=== PATIENT | male | born 1970 | race Caucasian/White ===

== ENCOUNTER 2018-11-25 13:21 | Inpatient (IN) | payer MEDICAID ==
[~2018-11-25] VITALS: Ht 170.2 cm; Wt 69.0 kg
[2018-11-25 13:26] VITALS: Ht 170.2 cm; Wt 69.0 kg
--- NOTE | 2018-11-25 13:40 | NUR ---
PT BIBA FOR ALOC, PER MEDICS, HE WAS FOUND OUTSIDE HIS HOUSE. WHEN MEDICS ARRIVED, PATIENT WAS COMBATIVE. PATIENT WAS GIVEN 5 MG IM VERSDED. ARRIVED AT BEDSIDE AND WAS STILL SEEN MOVING AROUND. BREATHING IS E/U, BILATERAL CHEST RISE. BED AT LOWEST LEVEL. DR. ROCKWELL AT BEDSIDE PERFORMED MSE
--- NOTE | 2018-11-25 13:47 | NUR ---
PT SENT TO CT
[2018-11-25 13:53] LABS: BASOPHIL % 1.2 % (0-2); PLATELET COUNT 118 x10^3mcL (130-400); RED CELL DISTRIBUTION WIDTH 15.6 % (11.5-14.5)
[2018-11-25 14:23] LABS: CALCIUM 7.7 mg/dL (8.5-10.1); CARBON DIOXIDE 28.8 mmol/L (21-32); CHLORIDE SERUM 110 mmol/L (98-107); GFR1 > 60 mL/min; GLUCOSE SERUM 96 mg/dL (74-106); POTASSIUM SERUM 3.3 mmol/L (3.5-5.1); SODIUM SERUM 144 mmol/L (136-145)
[2018-11-25 14:28] LABS: ALKALINE PHOSPHATASE 215 U/L (46-116); ALT/SGPT 71 U/L (16-63); AST/SGOT 127 U/L (15-37); BILIRUBIN TOTAL 2.88 mg/dL (0.20-1.00); CHOLESTEROL 161 mg/dL (<200)
[2018-11-25 14:31] LABS: ALBUMIN 1.9 g/dL (3.4-5.0); TOTAL PROTEIN, SERUM 8.5 g/dL (6.4-8.2)
[2018-11-25 15:10] LABS: UA SPECIFIC GRAVITY 1.015 (1.005-1.035); microscopic required? YES; urine erythrocyte 1+ (NEGATIVE)
[2018-11-25 15:27] LABS: AMPHETAMINE QUAL UR POSITIVE (See below)
--- NOTE | 2018-11-25 15:58 | NUR ---
PT REQUESTS FOR WATER. PER , APPROVED FOR WATER.
--- NOTE | 2018-11-25 16:05 | NUR ---
PATIENT ABLE TO ANSWER QUESTIONS. ASKED PATIENT IF HE IS COOPERATIVE, PATIENT STS HE IS COOPERATIVE. REMOVED RESTRAINTS. PATIENT CONTINUES TO BE COOPERATIVE. PATIENT STS HE WANTS TO REST.
--- NOTE | 2018-11-25 16:23 | NUR ---
PT RESTING AT BEDSIDE IN NAD. BREATHING E/U, BILATERAL CHEST RISE. BED AT LOWEST POSITION.
[2018-11-25 16:31] LABS: MAGNESIUM 1.8 mg/dL (1.8-2.4); PHOSPHOROUS 2.4 mg/dL (2.5-4.9)
--- NOTE | 2018-11-25 17:35 | NUR ---
PT RESTING AT BEDSIDE IN NAD. BREATHING E/U, BILATERAL CHEST RISE. BED AT LOWEST POSITION. LIGHTS DIMMED TO PROMOTE PATIENT COMFORT. CURTAINS LEFT WIDE OPEN, PATIENT IN CLEAR VIEW OF NURSES AT STATION
--- NOTE | 2018-11-25 17:56 | NUR ---
PT RESTING AT BEDSIDE IN NAD. BREATHING E/U, BILATERAL CHEST RISE. BED AT LOWEST POSITION. CALL LIGHT IN REACH. LIGHTS DIMMED AND BLANKETS PROVIDED TO PROMOTE PATIENT COMFORT
--- NOTE | 2018-11-25 18:20 | NUR ---
PT RESTING AT BEDSIDE IN NAD. BREATHING E/U, BILATERAL CHEST RISE. BED AT LOWEST LEVEL. LIGHTS DIMMED TO PROMOTE PATIENT COMFORT. CURTAINS LEFT OPEN, PATIENT CLEARLY SEEN BY NURSES AT STATION.
--- NOTE | 2018-11-25 19:45 | NUR ---
PT AWOKE STATING HAVING TO GO TO BATHROOM FOR URINATION. PT REORIENTATED TO PLACE AND THE FACT THAT HE HAS A DAWSON CATH IN PLACE TO DRAIN URINE. PT HAS IV IN PLACE TO RIGHT AC. RESPIRATIONS EVEN AND UNLABORED. NO OTHER COMPLAINTS AT THIS TIME. PT IS OREINTATED TO PERSON PLACE.
--- NOTE | 2018-11-25 20:00 | NUR ---
REPORT TO ELPIDIO DUQUE ON TELE UNIT. PT RESTING NO DISTRESS.
[2018-11-25 20:35] VITALS: BP 132/85
--- NOTE | 2018-11-25 20:39 | NUR ---
RECEIVED PT FROM ED VIA ROBERT. ORIENTED PT TO ROOM AND SURROUNDINGS. IV NOTED TO RAC PATENT AND INTACT. INSTRUCTED PT ON THE USE OF CALL LIGHT FOR ASSISTANCE. ENDORSD PT TO PRIMARY NURSE NETO
--- NOTE | 2018-11-25 21:13 | NUR ---
PT RECIEVED AWAKE ALERT AND ORIENTED TO SELF PLACE AND RESTING IN BED AT THIS TIME,PT HAS IV TO THE LT AC SITE IS PATENT AND INTACT,ABDO IS SOFT WITH ACTIVE BOWEL SOUNDS,PT WITH ABRASIONS AND SCABS TO THE THE BODY,PT RESTING AT THIS TIME WITH SITTER AT THE BEDSIDE,PT ON TELE MONITOR AND IN NSR NO ECTOPY OR CHEST PAIN AT THIS TIME,KEPT CLEAN AND DRY TO TOUCH AND WILL CONTINUE TO MONITOR.
--- NOTE | 2018-11-25 21:33 | NUR ---
U/S ABDO BEING DONE ON THE PATIENT ORDER AND WILL CONTINUE TO MONITOR.
--- NOTE | 2018-11-25 22:06 | NUR ---
PT WANT TO EAT WAS GIVEN SANDWICH SITTING UP ON THE BED AND EATING,TOLEARTING IT WELL THIS TIME,WILL CONTINUE TO MONITOR.
[2018-11-26 05:53] VITALS: BP 106/56
--- NOTE | 2018-11-26 06:26 | NUR ---
PT HAD A RESTING NIGHT SOMETHINGS NOT LISTENING TO SIMPLE INSTRUCTIONS,P SLEEPING SIDE RAILS PADDED STILL HAS A F/C TO GRAVITY WITH DARK SANTI URINE OUTPUT.WILL CONTINUE TO MONITOR.
--- NOTE | 2018-11-26 06:42 | NUR ---
PT TRYING TO GET OOB DROWSY AND SLURED SPEECH THIS AM,WILL CONTINUE TO MONITOR.
--- NOTE | 2018-11-26 06:53 | NUR ---
PT REFUSING TO TAKE HIS LACTULOSE THIS AM,DR LOWE HERE AND MADE AWARE,WILL CONTINUE TO MONITOR.
[2018-11-26 07:00] LABS: BASOPHIL % 1.5 % (0-2)
--- NOTE | 2018-11-26 07:00 | NUR ---
RECEIVED REPORT FROM LAST GREASER NURSE AT THIS TIME. PATIENT RESTING COMFORATBLY IN BED. NO DISTRESS OR DISCOMFORT AT THIS TIME. NO INDICATIONS OF CHEST PAIN AT THIS TIME. SEIZURE PRECAUTIONS IN PLACE. DAWSON CATHETER DRAINING TO GRAVITY YELLOW URINE. IV PATENT AND INTACT. ALL QUESTIONS AND CONCERNS ADDRESSED. ALL NEEDS ATTENDED TO. WILL CONTINUE TO MONITOR.
[2018-11-26 07:06] LABS: PLATELET COUNT 116 x10^3mcL (130-400); RED CELL DISTRIBUTION WIDTH 15.4 % (11.5-14.5)
[2018-11-26 07:07] LABS: CALCIUM 7.4 mg/dL (8.5-10.1); CARBON DIOXIDE 24.9 mmol/L (21-32); CHLORIDE SERUM 111 mmol/L (98-107); CREATININE SERUM 0.9 mg/dL (0.7-1.3); GFR1 > 60 mL/min; GLUCOSE SERUM 82 mg/dL (74-106); MAGNESIUM 1.6 mg/dL (1.8-2.4); PHOSPHOROUS 1.9 mg/dL (2.5-4.9); POTASSIUM SERUM 3.1 mmol/L (3.5-5.1); SODIUM SERUM 143 mmol/L (136-145)
[2018-11-26 09:13] VITALS: BP 103/57
--- NOTE | 2018-11-26 09:17 | NUR ---
PATIENT UNARROUSABLE AT THIS TIME. PATIENT LOCALIZES TO PAIN, BUT NO VERBAL RESPONSE. WILL NOTIFY DR AT THIS TIME.
--- NOTE | 2018-11-26 09:30 | NUR ---
DR THOMPSON AT BEDSIDE TO ASSESS PATIENT. PER DR THOMPSON TRANSFER PATIENT TO ICU. WILL CONTINUE TO MONITOR
--- NOTE | 2018-11-26 10:42 | NUR ---
GAVE REPORT TO ICU NURSE SARKIS AT THIS TIME. PATIENT TRANSPORTED TO ICU BED 8. ALL NEEDS ATTENDED TO. TELE MONITOR RETURNED TO EMERGENCY ROOM CLERK. ALL QUESTIONS AND CONCERNS ADDRESSED
--- NOTE | 2018-11-26 10:53 | NUR ---
RECEIVED REPORT FROM SIM PATIENT TRANSFERRED TO ICU PATIENT HAS ELEVATED AMMONIA LEVEL ORDER TO INSERT NGT PATIENT WAS TRANSFERRED TO BED WITH NO RESISTANCE UNTIL MONITOR WAS PLACED ON PATIENT. PATIENT BEGAN TO RESIST BUT ABLE TO CALM DOWN IV TO RIGHT AC SALINE LOCK WILL CONTINUE TO MONITOR
[2018-11-26 11:14] VITALS: BP 99/64
--- NOTE | 2018-11-26 11:29 | NUR ---
NGT PLACED TO RIGHT NARE PER ORDER
--- NOTE | 2018-11-26 13:40 | NUR ---
PATIENT IS RESTING COMFORTABLY BILATERAL WRIST RESTRAINTS IN PLACE
[2018-11-26 15:14] VITALS: BP 99/70
[2018-11-26 20:00] VITALS: BP 114/58
--- NOTE | 2018-11-26 20:38 | NUR ---
PT. SLEEPING, REPONDS TO TATILE AND PAIN STIMULI. PT. IN FOUR POINT RESTRAINTS. AGGRESSIVE BEHAVIOR NOTED WHEN RESTRAINTS ARE RELEASED. PATIENT KICKING. RESISTANT TO CARE. PT HAD VERY LARGE BM, SOFT AND DARK BROWN. PT. ON LACTULOSE. PT. CLEANED, BED CHANGED. PT. REPOSITIONED W/ ASSIST OF TWO OTHER NURSES. NGT TO RT. NARE REMAINS IN-SITU. F/C DRAINING WELL TO GRAVITY. IVF NS INFUSING WELL TO RFA, SITE INTACT. HOB 35 DEGREES. PT. IN DIRECT VIEW OF THE NURSING STATION. FREQUNT ROUNDS PLANNED.
--- NOTE | 2018-11-26 20:54 | NUR ---
SPOKE W/ DR. MOTT TO CLARIFY DIET ORDER. PT. IS TO HAVE TUBE FEEDING STARTED PER ORDER./
--- NOTE | 2018-11-26 23:31 | NUR ---
PT. CONTINUES TO HAVE LARGE, DARK BROWN, STICKY BM. PT. W/ X3 THUS FAR. PT. CLEANED AND REPOSITIONED, MADE COMFORTABLE. REMAINS IN FOUR POINT RESTRAINTS. TUBE FEEDING VITAL AF 1.2 STARTED AT 2300, 10CC/HR. TOLERATING THUS FAR. HOB 35 DEGREES. WILL CONTINUE TO MONITOR.
[2018-11-27] VITALS (7 sets, daily range): BP systolic 98–136; BP diastolic 52–83
--- NOTE | 2018-11-27 01:14 | NUR ---
PT. STARTED ON TUBE FEEDING AND TOLERATING IT BUT IS BALLING HIMSELF UP IN POSISION. HOB 35 DGEREES. PT. PULLED UP IN BED SEVERAL TIMES, BUT HE SCOOTS DOWN AND TUCKS HIS HEAD TO CHIN. PT. AT RISK FOR ASPIRATION R/T TUBE FEEDING. TF TURNED OFF AT THIS TIME. WILL CONTINUE TO MONITOR.
--- NOTE | 2018-11-27 04:13 | NUR ---
PT. SLEEPING AT THIS TIME THOUGH HE'S MORE AROUSABLE. OPENS EYES ONHIS OWN. NOT SPEAKING OR SAYING ANY WORDS HOWEVER, NOT ANSWERING ANY QUESTIONS. GOES RIGHT BACK TO SLEEP. NGT TO RT. NARE IN-SITU. TUBE FEEDING TURNED OFF HOWEVER, PT. APPEARS TO FAVOR POSITION. RISK FOR ASPIRATION. WILL CONTINUE TO MONITOR. ABD. SOFT AMD FLAT, BOWEL SOUNDS ACTIVE. IVF INFUSING WELL. F/C DRAINING WELL TO GRAVITY. HOB 35 DEGREES.
[2018-11-27 05:30] LABS: BASOPHIL % 0.8 % (0-2); PLATELET COUNT 100 x10^3mcL (130-400); RED CELL DISTRIBUTION WIDTH 17.2 % (11.5-14.5)
[2018-11-27 05:41] LABS: CALCIUM 7.1 mg/dL (8.5-10.1); CARBON DIOXIDE 24.6 mmol/L (21-32); CHLORIDE SERUM 114 mmol/L (98-107); CREATININE SERUM 0.8 mg/dL (0.7-1.3); GFR1 > 60 mL/min; GLUCOSE SERUM 73 mg/dL (74-106); MAGNESIUM 1.8 mg/dL (1.8-2.4); PHOSPHOROUS 1.8 mg/dL (2.5-4.9); POTASSIUM SERUM 3.4 mmol/L (3.5-5.1); SODIUM SERUM 142 mmol/L (136-145)
--- NOTE | 2018-11-27 06:59 | NUR ---
PT. HAD LARGE BM, PT. CLEANED UP AND REPOSITIONED. PT. MORE AWAKE NOW, ABLE TO COMMUNICATE. SPEECH SLOW, SLURRED. PT. ORIENTED TO SELF, PLACE AND TIME. PT. ASKING IF HIS FAMILY KNOWS THAT HE IS HERE. PT. MADE AWARE THAT HIS MOTHER AND ANOTHER FAMILY MEMBER CAME AND WILL BE BACK LATER. PT.'S IV SITE TO RAC LEAKING BLOOD. IV CATH REMOVED AND SITE DRESSED. NEW SITE STARTED ON RT. HAND.
--- NOTE | 2018-11-27 07:30 | NUR ---
RECEIVED A BEDSIDE REPORT, SEEN ASLEEP, NO TALKING BACK, TACTILE STIMULI RESPONSIVE, NGT TO RIGHT NARE NOTED CLAMPED, BREATHING E/U ON ROOM AIR, HOB ELEVATED AT 45 DEG, ABDN SOFT AND FLAT, KEPT NPO, DAWSON CATH DRIANING TO GRAVITY YELLOW URINE COLORED, IVF NS TO RT HAND INFUSING AT 100ML/HR, CALL LIGHT PLACED WITHIN EASY REACH, SIDERAILS UP X2.
--- NOTE | 2018-11-27 08:20 | NUR ---
PATIENT IS DROWSY WHEN PHLEBOMOTISTS AT BEDSIDE FOR AMMONIA DRAW, STATED HE IS IN THE [facility] AND TODAY IS SUNDAY. PATIENT STATED HE IS HUNGRY, ASKED FOR WATER AND FOOD. REORIENTATION PROVIDED. RESTRAINT TO BLE AND LEFT WRIST REMOVED.
--- NOTE | 2018-11-27 08:26 | NUR ---
K LEVEL 3.4, KCL 40MEQ VIA NGT GIVEN, NO ASPIRATION NOTED.
--- NOTE | 2018-11-27 09:17 | NUR ---
HAD LOOSE BM, CLEANED UP AND NEW PADS/GOWN CHANGED. AWAK, DROWSY, ORIENTED X3. ASKED FOR WATER. ICE CHIPS GIVEN, TOLERATED WELL, NO S/S OF ASPIRATION NOTED.
--- NOTE | 2018-11-27 09:20 | NUR ---
STATED I'M HUNGRY, ICE WATER PROVIDED, ABLE TO FINISH A CUP OF WATER WITHOUT ASPIRATION OR COUGH NOTED.
--- NOTE | 2018-11-27 09:35 | NUR ---
HAD A LARGE LOOSE BM, CLEANED BY ASSISTED BY ME AND TOBACCO WRAPPING MACHINE TENDER IRENE. ABLE TO REPOSTION SELF IN BED. ASKED FOR PHONE AND FOOD.
--- NOTE | 2018-11-27 10:30 | NUR ---
DOCTOR THOMPSON AND MEDICAL TEAM AT BEDSIDE FOR AM ROUND. INFORMED DOCTOR THOMPSON THAT PATIENT ABLE TO FINISH A WHOLE CUP OF WATER.
--- NOTE | 2018-11-27 11:29 | NUR ---
NOTED NEW ORDER FOR FULL LIQUID DIET.
--- NOTE | 2018-11-27 13:00 | NUR ---
ABLE TO FEED SELF, FINISHED 100% OF FULL LIQUID DIET LUNCH, NO ASPIRATION NOTED. HAD A LARGE LOOSE BM AFTER LUNCH, CLEANED UP AND NEW CHUCKS CHANGED.
--- NOTE | 2018-11-27 13:25 | NUR ---
PATIENT PULLED OUT NGT, DOCTOR MILVIA MADE AWARE. PATIENT ASKED FOR THE PHONE, PHONE PROVIDED AND INSTRUCTED HOW TO USE IT.
--- NOTE | 2018-11-27 13:28 | NUR ---
HEARD PATIENT TALKED TO HIS MOTHER ON THE PHONE.
--- NOTE | 2018-11-27 14:50 | NUR ---
SEEN PATIENT'S MOTHER AT BEDSIDE TALKING TO PATIENT, CURRENT CONDITION/PLAN OF CARE UPDATED.
--- NOTE | 2018-11-27 15:20 | NUR ---
HAD A MODERATE LOOSE BM, CLEANED UP, NEW GOWN/LINENS CHANGED.
--- NOTE | 2018-11-27 16:07 | NUR ---
NOTED ORDER TO TRANSFER TO TELEMETRY UNIT.
--- NOTE | 2018-11-27 16:57 | NUR ---
REPORT GIVEN TO ELPIDIO MSUE VIA PHONE. PATIENT WILL BE TRANSFERRED TO ROOM 218B. PATIENT MADE AWARE.
--- NOTE | 2018-11-27 16:57 | NUR ---
RECEIVED REPORT FROM BLAKE MAGALLANES.
--- NOTE | 2018-11-27 17:20 | NUR ---
RECEIVED PT FROM ICU. PT SLEEPING AROUSABLE TO VOICE. PT C/O BEING COLD GIVEN WARM BLANKET. VITALS TAKEN BP 98/69, HR 82, TEMP 99.8, SATING 98% ON RA, RR 18. RESPIRATIONS EQUAL AND UNLABORED ON RA. NO ACUTE DISTRESS NOTED. TELE#17. DENIES PAIN AT THIS TIME. IV TO RT WRIST FLUSHED WELL. NO REDNESS OR SWELLING NOTED. IV FLUIDS INFUSING AT 100ML/HR. WILL CONTINUE TO MONITOR. CALL LIGHT IN REACH. BED IN LOWEST POSITION.
--- NOTE | 2018-11-27 17:22 | NUR ---
TRANSFERRED VIA BED TO TELEMETRY UNIT, CONDITION STABLE UPON TRANSFER.
--- NOTE | 2018-11-27 18:49 | NUR ---
PT IN BED SLEEPING. DROWSY BUT AROUSABLE TO VOICE. RESPIRATIONS EQUAL AND UNLABORED ON RA. NO ACUTE DISTRESS NOTED. IV PATENT AND INUSING. NO REDNESS OR SWELLING NOTED. SEIZURE PRECAUTIONS IN PLACE. WILL ENDORSE TO TIP TESTER RN. BED IN LOWEST POSITION. CALL LIGHT IN REACH.
--- NOTE | 2018-11-27 19:45 | NUR ---
RECEIVED PATIENT FROM DAY SHIFT RN. PATIENT IS AO TO SELF, DROWSY AT THIS TIME. BREATHING EVEN AND UNLABORED WITH NO SIGNS OF RESP DISTRESS NOTED. LUNG SOUNDS CTA ON RA. IV RIGHT HAND PATENT, INFUSING WELL. TELE #17 SR HR 87. F/C YELLOW URINE DRAINING IN BAG. FALL PRECAUTIONS IN PLACE. SEIZURE PRECAUTIONS IN PLACE. WILL CONTINUE TO MONITOR.
--- NOTE | 2018-11-27 21:27 | NUR ---
PATIENT HAD A BM SMALL LOOSE. PATIENT UNCOOPERATIVE AND UNWILLING TO TAKE MEDICATIONS. DR MOTT MADE AWARE, AWAITING NEW ORDER.
--- NOTE | 2018-11-27 22:00 | NUR ---
LACTOLOSE NOT GIVEN PT WAS TOO DROWSY AND UNWILLING TO TAKE MEDICATION AT THIS TIME. DR MOTT MADE AWARE, LACTOLOSE PER RECTAL WAS ORDERED, PHARMACIST DID NOT VERIFIED THE ORDER. INSTEAD FLEET ENEMA WAS ORDERED, PER DR MOTT TO HOLD FLEET ENEMA AND WILL RE ORDER LACTOLOSE AGAIN. NO NEW ORDERS AT THIS TIME.
--- NOTE | 2018-11-27 22:45 | NUR ---
PATIENT TRYING TO GET UP AND GO TO THE BATHROOM, ACCIDENTLY PULLED OUT IV ON RIGHT HAND, CATHETER INTACT. NEW IV STARTED ON RFA, PATENT AND FLUSHED WELL.
--- NOTE | 2018-11-27 23:29 | NUR ---
PATIENT IS ASLEEP, BREATHING EVEN AND UNLABORED. NO SIGNS OF DISTRESS NOTED. SAFETY PRECAUTIONS IN PLACE. WILL CONTINUE TO MONITOR.
--- NOTE | 2018-11-28 03:35 | NUR ---
FLEET ENEMA GIVEN.
--- NOTE | 2018-11-28 03:46 | NUR ---
ROUNDS MADE. PATIENT ASLEEP AT THIS TIME. NO SIGNS OF DISTRESS NOTED. SAFETY PRECAUTIONS IN PLACE. WILL CONTINUE TO MONITOR.
--- NOTE | 2018-11-28 04:29 | NUR ---
PATIENT VERY RESTLESS AND LETHARGIC, TRYING TO GET OUT OF BED MULTIPLE TIMES. PT TRYING TO PULL OUT IV AND F/C. DR MOTT MADE AWARE PT PLACED ON BILATERAL SOFT RESTRAINTS ORDERED. NO ACUTE DISTRESS NOTED. WILL CONTINUE TO MONITOR.
[2018-11-28 04:50] VITALS: BP 103/66
--- NOTE | 2018-11-28 05:38 | NUR ---
PATIENT IS ALERT AND ORIENTED TO SELF. PT RESPONDS TO VERBAL STIMULI AT TIMES. PATIENT IS RESTLESS AND LETHARGIC. TELE 17 SR. LUNG SOUNDS CTA ON RA. PATIENT HAD A TWO LOOSE BM. FLEET ENEMA WAS GIVEN. LACTOLOSE ORDERED UNABLE TO TAKE MEDICATION. PT HAS F/C IN PLACE DRAINING YELLOW URINE. BUE AND BLE DISCOLORATIONS, DRY SCAB TO KNEE AND HAND. IV RFA PATENT, INFUSING WELL. RESTRAINTS APPLIED SUSANA WRISTS HE WAS VERY RESTLESS TRYING TO PULL OUT TUBING AND GET OUT OF BED MULTIPLE TIMES. SEIZURE PRECAUTIONS IN PLACE. SAFETY PRECAUTION IN PLACE. WILL CONTINUE TO MONITOR.
[2018-11-28 06:28] LABS: CALCIUM 7.6 mg/dL (8.5-10.1); CARBON DIOXIDE 25.9 mmol/L (21-32); CHLORIDE SERUM 112 mmol/L (98-107); CREATININE SERUM 0.8 mg/dL (0.7-1.3); GFR1 > 60 mL/min; GLUCOSE SERUM 83 mg/dL (74-106); POTASSIUM SERUM 3.6 mmol/L (3.5-5.1); SODIUM SERUM 142 mmol/L (136-145)
[2018-11-28 06:58] LABS: PLATELET COUNT 96 x10^3mcL (130-400); RED CELL DISTRIBUTION WIDTH 16.3 % (11.5-14.5)
--- NOTE | 2018-11-28 06:58 | NUR ---
AMMONIA LEVEL TRENDING UP 133, DR MOTT MADE AWARE.
--- NOTE | 2018-11-28 07:30 | NUR ---
RECEIVED PT FROM LANDSCAPER HELPER RN. SLEEPING, DROWSY, AROUSABLE TO TOUCH. NONVERBAL. TELE#17. SOFT WRIST RESTRAINTS TO BILATERAL WRIST. CIRCULATION CHECKED, NO REDNESS OR SWELLING NOTED. SEIZURE PRECAUTIONS IN PLACE. HOB ELEVATED 30 DEGREES. RESPIRATIONS EQUAL AND UNLABORED ON RA. WILL CONTINUE TO MONITOR. BED IN LOWEST POSITION. CALL LIGHT IN REACH.
--- NOTE | 2018-11-28 07:32 | NUR ---
ENDORSED CARE TO DAY SHIFT RN.
--- NOTE | 2018-11-28 08:25 | NUR ---
PT IN BED SLEEPING. DROWSY, AROUSABLE TO TOUCH. CIRCULATION WNL. NO REDNESS OR SWELLING NOTED. IV PATENT AND INFUSING. SEIZURE PRECAUTIONS IN PLACE. HOB ELEVATED 30 DEGREES. WILL CONTINUE TO MONITOR. CALL LIGHT IN REACH. BED IN LOWEST POSITION.
--- NOTE | 2018-11-28 08:30 | NUR ---
CALLED POLLY KEENE, MOTHER. UPDATED HER ON PT POC. POLLY STATED SHE WILL BE VISITING AROUND 1PM.
[2018-11-28 09:38] VITALS: BP 103/60
--- NOTE | 2018-11-28 10:46 | NUR ---
PT IN BED DROWSY BUT AROUSABLE TO VOICE. PT GIVEN BED BATH, LINENS CHANGED. GIVE LACTULOSE RECTALLY. PT BEGAN FIGHTING AND KICKING. PT MORE AWAKE AFTER BED BATH AND LINENS CHANGED. PT ASKING TO EAT GIVEN SOME PUDDING. TOLERATED WELL. IV INFILTRATED, CATHETER REMOVED INTACT ELEVATED ON PILLOW. HOB ELEVATED. SEIZURE PRECAUTIONS IN PLACE. WILL CONTINUE TO MONITOR. CALL LIGHT IN REACH. BED IN LOWEST POSITION.
--- NOTE | 2018-11-28 11:41 | NUR ---
PT IN BED RESTING. IV STARTED TO LT FA. PT TOLERATED WELL. PT ASKING TO EAT. GIVEN PUDDING. TOLERATED WELL. HOB ELEVATED 30 DEGREES. DROWSY BUT AROUSABLE TO VOICE. SOFT WRIST RESTRAINTS IN PLACE. CIRCULATION WNL. RT ARM ELEVEATED ON PILLOW. SEIZURE PRECAUTIONS IN PLACE. WILL CONTINUE TO MONITOR. CALL LIGHT IN REACH. BED IN LOWEST POSITION.
[2018-11-28] MEDS ORDERED: LAC30L PR (12:47)
--- NOTE | 2018-11-28 13:45 | NUR ---
PT ASKING TO GET OUT OF BED. STATING HE WANTS TO USE THE BATHROOM. HE IS STILL DROWSY AND CANNOT KEEP HIS EYES OPEN. SOFT WRIST RESTRAINTS TO BILAT WRIST. CIRCULATION WNL. SEIZURE PRECAUTIONS IN PLACE. BED IN LOWEST POSITION. CALL LIGHT IN REACH.
[2018-11-28 14:23] VITALS: BP 120/73
--- NOTE | 2018-11-28 14:29 | NUR ---
PT ATTEMPTING TO GET OUT OF BED. STATING HE NEEDS TO GET OUT OF BED TO USE THE BATHROOM BECAUSE HE NEEDS TO PEE. PT REMINDED OF HAVING A DWASON CATHETER. STILL ATTEMPTING TO GET OUT OF BED AND IS AGITATED. PT ABLE TO FOLLOW COMMANDS TO TAKE LACTULOSE PO. GIVEN ATIVAN IV FOR AGITATION. WILL CONTINUE TO MONITOR. CALL LIGHT IN REACH. BED IN LOWEST POSITION.
--- NOTE | 2018-11-28 16:26 | NUR ---
MOTHER AND COUSIN SITTING AT BEDSIDE. MOTHER, POLLY UPDATED ON POC. POLLY INFORMED OF POSSIBLE TRANSFER TO HIGHER LEVEL OF CARE. MOTHER POLLY KEENE ASKED TO BE UPDATED ON TRANSFER.
--- NOTE | 2018-11-28 17:01 | NUR ---
PT RESTING IN BED. CHANGED PT AND PUT ON NEW GOWN WITH HELP OF SHOPPER'S AIDE. PT RESTLESS WHEN BEING MOVED. REPOSITIONS ON RIGHT SIDE. IV INFUSING. NO REDNESS OR SWELLING NOTED. SEIZURE PRECAUTIONS IN PLACE. BILAT SOFT WRIST RESTRAINTS. CIRCULATION WNL. WILL CONTINUE TO MONITOR. CALL LIGHT IN REACH. BED IN LOWEST POSITION.
[2018-11-28 17:56] VITALS: BP 104/61
--- NOTE | 2018-11-28 18:25 | NUR ---
PT RESTING IN BED. DROWSY BUT AROUSABLE. OFFERED PT FOOD AND WATER. PT GOT UPSET AND STATED HE JUST WANTS TO SLEEP. BILAT SOFT WRIST RESTRAINTS IN PLACE. CIRCULATION WNL. SEIZURE PRECAUTIONS IN PLACE. NO ACUTE RESP DISTRESS NOTED. WILL CONTINUE TO MONITOR.
--- NOTE | 2018-11-28 18:50 | NUR ---
PT IN BED SLEEPING. DROWSY, AROUSABLE. TELE#17. RESPIRATIONS EQUAL AND UNLABORED ON RA . NO ACUTE RESP DISTRESS NOTED. IV PATENT AND INFUSING. NO REDNESS OR SWELLING NOTED. BILAT SOFT WRIST RESTRAINTS IN PLACE. CIRCULATION WNL. SEIZURE PRECAUTIONS IN PLACE. OFFERED PT FOOD AND WATER, PT REFUSED. WILL ENDORSE TO REVENUE ENFORCEMENT AGENT RN. CALL LIGHT IN REACH. BED IN LOWEST POSITION.
--- NOTE | 2018-11-28 19:39 | NUR ---
RECEIVED PATIENT FROM DAY SHIFT RN. PATIENT IS AO TO SELF, DROWSY AT THIS TIME. BREATHING EVEN AND UNLABORED WITH NO SIGNS OF RESP DISTRESS NOTED. LUNG SOUNDS CTA ON RA. IV LFA PATENT, INFUSING WELL. TELE #17 SB HR 56. NO SIGNS OF DISTRESS OR DISCOMFORT. F/C YELLOW URINE DRAINING IN BAG. BUE AND BLE DISCOLORATION NOTED. DRY SCAB TO KNEE AND HAND. BILATERAL WRIST SOFT RESTRAINTS, SKIN CIRCULATION WNL. FALL PRECAUTIONS IN PLACE. SEIZURE PRECAUTIONS IN PLACE. WILL CONTINUE TO MONITOR.
[2018-11-28 20:27] VITALS: BP 127/79
--- NOTE | 2018-11-28 23:00 | NUR ---
ROUNDS MADE. PATIENT IS ASLEEP. NO SIGNS OF DISTRESS NOTED. IV PATENT AND INFUSING WELL. BILATERAL WRIST SOFT RESTRAINT, SKIN CIRCULATION WNL. SAFETY PRECAUTIONS IN PLACE. WILL CONTINUE TO MONITOR.
--- NOTE | 2018-11-29 02:08 | NUR ---
ROUNDS MADE. PT ASLEEP. BREATHING EVEN AND UNLABORED. BILATERAL WRISTS SOFT RESTRAINT, SKIN AND CIRCULATION WNL. SAFETY PRECAUTIONS IN PLACE. WILL CONTINUE TO MONITOR.
--- NOTE | 2018-11-29 03:52 | NUR ---
PT IS ASLEEP. BREATHING EVEN AND UNLABORED WITH NO SIGNS OF RESP DISTRESS. IV PATENT, INFUSING WELL. BILATERAL WRIST SOFT RESTRAINTS, SKIN AND CIRCULATION WNL. SAFETY PRECAUTIONS IN PLACE. WILL CONTINUE TO MONITOR.
[2018-11-29 05:54] VITALS: BP 91/47
--- NOTE | 2018-11-29 06:27 | NUR ---
PT IS RESTING, RESTLESS AND DROWSY. ALERT AND OREINTED TO SELF. PT SLEPT MOST OF THE NIGHT WITH NO DISTRESS. IV LFA PATENT AND INFUSING WELL. PT HAD LOOSE BM X1. MEDICATED PER EMAR. BILATERAL WRISTS SOFT RESTRAINTS, SKIN AND CIRCULATION WNL. SEIZURE PRECAUTIONS IN PLACE. SAFETY PRECAUTIONS IN PLACE. WILL CONTINUE TO MONITOR AND ENDORSE CARE TO DAY SHIFT RN.
[2018-11-29 06:59] LABS: BASOPHIL % 0.8 % (0-2)
[2018-11-29 07:02] LABS: PLATELET COUNT 89 x10^3mcL (130-400); RED CELL DISTRIBUTION WIDTH 16.8 % (11.5-14.5)
[2018-11-29 07:04] LABS: ALKALINE PHOSPHATASE 170 U/L (46-116); ALT/SGPT 69 U/L (16-63); AST/SGOT 117 U/L (15-37); BILIRUBIN DIRECT 1.28 mg/dL (0.0-0.2); BILIRUBIN TOTAL 2.38 mg/dL (0.20-1.00); CALCIUM 7.1 mg/dL (8.5-10.1); CARBON DIOXIDE 25.8 mmol/L (21-32); CHLORIDE SERUM 111 mmol/L (98-107); CREATININE SERUM 0.7 mg/dL (0.7-1.3); GFR1 > 60 mL/min; GLUCOSE SERUM 79 mg/dL (74-106); POTASSIUM SERUM 3.4 mmol/L (3.5-5.1); SODIUM SERUM 138 mmol/L (136-145); TOTAL PROTEIN, SERUM 7.3 g/dL (6.4-8.2)
[2018-11-29 07:05] LABS: ALBUMIN 1.5 g/dL (3.4-5.0)
--- NOTE | 2018-11-29 07:27 | NUR ---
PT IS ASLEEP. NO SIGNS OF DISTRESS NOTED. IV PATENT AND INFUSING WELL. BILATERAL WRISTS SOFT RESTRAINTS WITH SKIN AND CIRCULATION WNL. SAFETY PRECAUTIONS IN PLACE. ENDORSED CARE TO DAY SHIFT RN, ALL QUESTIONS ADDRESSED.
--- NOTE | 2018-11-29 07:40 | NUR ---
PT SLEEPING IN BED, UNABLE TO ASSESS ORIENTATION DUE TO DROWSINESS. PT IS TO TOUCH AROUASBLE. TELE MONITOR #[address], NSR. NO SOB NOTED, PT ON ROOM AIR. SEIZURE PRECAUTIONS IN PLACE. PT ON BILATERAL WRIST SOFT RESTRAINTS, CIRCULATION WNL. SKIN TEAR NOTED TO RIGHT FOREARM. DAWSON CATHETER DRAINING TO GRAVITY. NS IV INFUSING TO LFA AT 100 ML/HR, CDI, NO REDNESS, SWELLING OR PAIN NOTED AT SITE. CALL LIGHT WITHIN REACH, BED IN LOW POSITION. WILL CONTINUE TO MONITOR.
[2018-11-29 09:20] VITALS: BP 129/54
--- NOTE | 2018-11-29 11:30 | NUR ---
PATIENT IS AWAKE, ASSESED ORIENTATION. PT IS A/O X3 (PERSON,PLACE,TIME). WILL CONTINUE TO MONITOR FOR CHANGES.
--- NOTE | 2018-11-29 12:13 | NUR ---
PATIENT RQUESTING TO USE RESTROOM, PT AWARE F/C IS IN PLACE AND WILL NOT URINATE IN BED. PT CONTINUES TO REQUEST WANTING TO USE RESTROOM, PT SEEMS CONFUSED AT THIS TIME. WILL CONTINUE TO MONITOR AND REORIENTATE THE PATIENT. CALL LIGHT WITHIN REACH. BED IN LOW POSITION.
[2018-11-29 14:19] VITALS: BP 133/81
--- NOTE | 2018-11-29 14:22 | NUR ---
SHEET WRITER MI AWARE THE LACTULOSE GIVEN RECTAL AT 1400 (SEE EMAR) WAS HELD AND INSTEAD TELEPHONE ORDER WAS GIVEN FOR PT TO RECEIVE LACTULOSE PO (SEE EMAR). PATIENT TOLERATED PO MED. WILL CONTINUE TO MONITOR.
--- NOTE | 2018-11-29 14:50 | NUR ---
PATIENT IS SITTING UP ON BEDSIDE COMMODE. HEALTH DATA ADMINISTRATOR AT BEDSIDE FOR SAFETY.
--- NOTE | 2018-11-29 15:20 | NUR ---
PATIENT IS REFUSING TO GO TO BED, PT STATES "I WANT TO GO HOME, I KNOW MY RIGHTS. " SENIOR COST ANALYST MI DIAZ. WILL ENCOURAGE PT TO STAY AND MONITOR, FOR PT SAFETY.
--- NOTE | 2018-11-29 15:55 | NUR ---
JAGJIT STARK AWARE PT PULLED OUT F/C, JAGJIT STARK AWARE BLOOD WAS NOTED UPON REMOVAL OF F/C, NO FURTHER ORDERS AT THIS TIME. WILL CONTINUE TO MONITOR PT. CALL LIGHT WITHIN REACH, BED IN LOW POSITION. SIDE RAILS UP X3, FOR SAFETY PRECAUTION.
[2018-11-29 15:59] VITALS: BP 109/59
--- NOTE | 2018-11-29 18:50 | NUR ---
PATIENT SLEEPING IN BED, AROUSABLE. DENIES PAIN AT THIS TIME. NO ACUTE CHANGES AT THIS TIME. PATIENT IS STABLE. NS IV INFUSING TO LFA AT 100ML/HR, IV SITE CDI, NO REDNESS,SWELLING OR PAIN AT SITE. SEIZURE PRECAUTION IN PLACE. BILATERAL WRIST IN PLACE, CIRCULATION WNL. WILL ENDORSE REPORT TO NIGHT NURSE.
--- NOTE | 2018-11-29 19:30 | NUR ---
RECIEVED PATIENT AT START OF SHIFT OBTUNDED. UNABLE TO OPEN EYES, OR FOLLOW COMMANDS, BUT DOES GRIMACE WITH PAINFUL STIMULI. PUPILS ARE SLUGGISH +3. PATIENT IS SNORING, SATTING 100% ON RA. LUNGS CTAB. ABDOMEN SOFT AND ROUND, BOWEL SOUNDS ACTIVE. SEIZURE PRECAUTIONS AND ASPIRATION PRECAUTIONS IN PLACE. BILATERAL SOFT WRIST RESTRAINTS IN PLACE BECAUSE PATIENT PULLED OUT HIS DAWSON DURING DAY SHIFT REPORTED PER ARRON MAGALLANES. IV TO LFA INTACT, INFUSING WITHOUT REDNESS OR EDEMA. BED LOCKED AND IN LOWEST POSITION. CALL LIGHT AND BEDSIDE TABLE WITHIN REACH. WILL CONTINUE TO MONITOR.
[2018-11-29 21:46] VITALS: BP 114/62
--- NOTE | 2018-11-30 01:30 | NUR ---
PATIENT IS STILL UNAROUSABLE. HAS HAD 2 WATERY BROWN BMS TONIGHT AFTER LACUTLOSE ADMINISTRATION. IV STILL INTACT INFUSING WITHOUT REDNESS OR EDEMA. RESTRAINTS IN PLACE TO PREVENT PATIENT FROM PULING OUT IV. WILL CONTINUE TO MONITOR.
[2018-11-30 05:04] VITALS: BP 109/64
--- NOTE | 2018-11-30 06:53 | NUR ---
PATIENT HAD THIRD INCONTINENT EPISODE OF URINE THIS SHIFT. THERE ARE SMALL STREAKS OF BLOOD NOTED ON INCONTINENCE PAD. PATIENT'S BED WAS CHANGED AND PATIENT WAS WIPED CLEAN. LACTULOSE ADMINISTERED RECTALLY AT 2200 AND 0600. NO OTHER SIGNIFICANT CHANGES OCCURED THIS SHIFT. PATIENT IS STILL LETHARGIC. DOES NOT FOLLOW COMMANDS OR OPEN HIS EYES. GRIMACES TO PAINFUL STIMULI AND RESISTS ANY MOVEMENT OF HIS ARMS AND LEGS. PATIENT PREFERS THE POSITION AND KEEPS HIS ARMS CROSSED OVER HIS CHEST. RESTRAINTS IN PLACE TO PREVENT PATIENT FROM PULLING OUT IV. WILL ENDORSE CARE TO MORNING NURSE.
[2018-11-30 07:29] VITALS: BP 113/68
--- NOTE | 2018-11-30 07:30 | NUR ---
RECEIVED PT'S REPORT FROM LEAVING NURSE. PT SEEN REST ON BED, LETHARGIC, ONLY RESPONSE TO TACTILE STIMULI, NO VERBAL AND EYE OPEN. PT RESIST POSITION CHANGE, KEEPING POSITION. PT IS ON SUSANA SOFT WRIST RESTRAINT. PT BREATHING ON RA, EVEN, UNLABORED. PT INCONTINENT, URINE WITH BLOOD NOTED. SUSANA HAND SWELLING NOTED. IV SITE PATENT, INTACT. IVF INFUSING WELL.
[2018-11-30 09:17] LABS: BASOPHIL % 0.9 % (0-2); PLATELET COUNT 89 x10^3mcL (130-400); RED CELL DISTRIBUTION WIDTH 16.8 % (11.5-14.5)
[2018-11-30 09:25] LABS: CALCIUM 8.1 mg/dL (8.5-10.1); CARBON DIOXIDE 26.4 mmol/L (21-32); CHLORIDE SERUM 112 mmol/L (98-107); CREATININE SERUM 0.7 mg/dL (0.7-1.3); GFR1 > 60 mL/min; GLUCOSE SERUM 77 mg/dL (74-106); POTASSIUM SERUM 3.9 mmol/L (3.5-5.1); SODIUM SERUM 142 mmol/L (136-145)
--- NOTE | 2018-11-30 11:17 | NUR ---
PT IS SLEEPING. BREATHING ON RA, EVEN, UNLABORE. PT STILL ONLY RESPOND TO TACTILE STIMULI WITH BODY MOVEMENT, RESISTED TO POSITION CHANGE WHEN WE TRIED TO REPOSITION HIM. NO EYE OPEN, NO VERBAL RESPONSE. WILL CONTINUE TO MONITOR.
[2018-11-30 12:26] VITALS: BP 97/47
--- NOTE | 2018-11-30 13:04 | NUR ---
LACTULOSE GIVEN VIA RECTAL AFTER 2 TRY. PT IS MORE ALERT, WITH SIMPLE VERBAL RESPONSE, BUT NOT FOLLOW COMMAND, THEN PT FELL BACK TO SLEEP, ONLY RESPONSE TO TACTILE RESPONSE WITH BODY WITHDRAWL MOVEMENT, RESISTED TO POSITION CHANGE.
--- NOTE | 2018-11-30 14:03 | NUR ---
PT IS MORE AWAKE ALERT AND START VERBAL COMMUNICATION, ORIENTED X 2. PT HAD BM, DIARRHEA. PT WANT TO TALK TO DOCTOR AND GO HOME. PT IS AGITATED AT BEGINNING, BUT ABLE TO BE CONVEINCED AND CALMED DOWN SLOWLY AND COOPERATE CARE AT THIS TIME. ASSIST PT UP AND EAT LUNCH. MADE SUBSTATION MANAGER MI AWARE. OBTAINED TELEPHONE ORDER: IF PT IS AWAKE, NEXT DOSE SCHEDUELED ON 1800 OK TO GIVE BY ORAL. WILL CONTINUE TO MONITOR.
--- NOTE | 2018-11-30 15:01 | NUR ---
PT'S COUSIN AT BED SIDE. PT HAD BM X 2, WATERY STOOL. WILL CONTINUE TO MONITOR.
--- NOTE | 2018-11-30 17:18 | NUR ---
PT STAYING AWAKE. LACTULOSE GIVEN BY PO PER GEOSCIENCE TECHNICIAN MI TELEPHONE ORDER. PT PRESENT MORE ALERT, ORIENTED PERSON AND PLACE. CONFUSED AT TIMES. REMAINING RESTRAINTS AT THIS TIME.
[2018-11-30 17:35] VITALS: BP 122/85
--- NOTE | 2018-11-30 18:57 | NUR ---
DURING DINNER TIME PT GETTING CONFUSED AND LETHARGIC AGAIN. PT KEPT SAYING HE NEED TO GO TO BATHROOM, BUT ALREADY WET BED. REMAIN PT ON BED AND RESTRAINT FOR SAFETY PRECAUTION. HOLD PT'S DINNER 2/2 PT GETTING LETHARGIC. PT BREATHING ON RA, EVEN UNLABORED, IV SITE PATENT, INTACT. IVF INFUSING WELL.
--- NOTE | 2018-11-30 19:30 | NUR ---
PATIENT IS AWAKE A/O X4, [place] ISLANDER SPEAKING BUT UNDERSTANDS SOME SPANISH. DENIES CHEST PAIN AND SOB. LUNGS CTAB. ABDOMEN IS ROUND AND FIRM, DENIES ABDOMINAL PAIN. NO EDEMA NOTED TO EXTREMETIES. PULSES STRONG. SCDS ON, ALLERGY TO IODINE WRIST BAND IN PLACE. IV TO LFA SALINE LOCKED AND PATENT. BED LOCKED AND IN LOWEST POSITION, CALL LIGHT AND BEDSIDE TABLE WITHIN REACH. WILL CONTINUE TO MONITOR.
--- NOTE | 2018-11-30 19:30 | NUR ---
RECIEVED PATIENT AT START OF SHIFT WITH EYES CLOSED. GROANS IN RESPONSE TO TACTILE STIMULUS BUT WILL NOT OPEN HIS EYES OR FOLLOW COMMANDS. BILATERAL SOFT WRIST RESTRAINTS IN PLACE TO PREVENT PATIENT FROM PULLING OUT IV. IV INFUSING FLUIDS WITHOUT REDNESS OR EDEMA. SEIZURE AND ASPIRATION PRECAUTIONS IN PLACE. SCDS ON. BED LOCKED AND IN LOWEST POSITION. CALL LIGTH AND BEDSIDE TABLE WITHIN REACH. WILL CONTINUE TO MONITOR.
--- NOTE | 2018-11-30 22:10 | NUR ---
PATIENT IS BECOMING MORE ALERT. HE KEEPS REPEATING THAT HE NEEDS TO GO TO THE BATHROOM BUT DOES NOT COOPERATE OR FOLLOW COMMANDS TO USE BEDSIDE COMMODE OR URINAL. PATIENT IS UTILIZING INCONTINENCE SHEETS. IV DRESSING CHANGED DUE TO PATIENT GRABBING IT. IV IS STILL INTACT, WRIST RESTRAINTS WERE ADJUSTED SO HE CAN NO LONGER REACH HIS IV. PATIENT IS NOW EATING WITH AID OF SHAJI RUBY. WILL CONTINUE TO MONITOR.
[2018-11-30 22:33] VITALS: BP 113/62
--- NOTE | 2018-12-01 00:03 | NUR ---
PATIENT ALERT ENOUGH TO SWALLOW LACULOSE PO. TOLERATED WELL. WILL CONTINUE TO MONITOR.
[2018-12-01 05:52] VITALS: BP 123/83
--- NOTE | 2018-12-01 06:33 | NUR ---
PATIENT AWAKE, RESTLESS AND AGGRESSIVE. IS THREATENING TO PUNCH NURSING STAFF. BILATERAL SOFT WRIST RETSRAINTS STILL IN PLACE. PATIENT TOOK LACUTLOSE ORALLY AFTER SOME CONVINCING. PATIENT WAS CLEANED AND CHANGED AGAIN AFTER ANOTHER INCONTINENCE EPISODE OF BLOOD STREAKED URINE. NO FURTHER SIGNIFICANT EVENTS.WILL ENDORSE CARE TO MORNING NURSE.
--- NOTE | 2018-12-01 07:17 | NUR ---
RECEIVED PT FROM LEAVING NURSE. PT IS SLEEPING BUT RESPONSED TO VERBAL STIMULI WITH GARBLE SPEECH. PT ORIENTED TO PERSON AND PLACE. PT COOPERATED WITH LAB DRAWN. PT BREATHING ON RA, EVEN, UNLABORED. IV SITE PATENT, INTACT, IVF INFUSING WELL.
[2018-12-01 07:46] LABS: CALCIUM 6.4 mg/dL (8.5-10.1); CARBON DIOXIDE 23.1 mmol/L (21-32); CHLORIDE SERUM 115 mmol/L (98-107); CREATININE SERUM 0.6 mg/dL (0.7-1.3); GFR1 > 60 mL/min; GLUCOSE SERUM 67 mg/dL (74-106); SODIUM SERUM 143 mmol/L (136-145)
[2018-12-01 07:52] LABS: POTASSIUM SERUM 2.9 mmol/L (3.5-5.1)
[2018-12-01 07:57] LABS: BASOPHIL % 1.5 % (0-2)
[2018-12-01 08:02] LABS: PLATELET COUNT 60 x10^3mcL (130-400); RED CELL DISTRIBUTION WIDTH 16.6 % (11.5-14.5)
--- NOTE | 2018-12-01 08:17 | NUR ---
MADE JAGJIT STARK ABOUT PT'S CRITICAL LAB K 2.9, AMMONI 144 UP, AND PT REFUSE ORAL FOOD AT THIS TIME.
[2018-12-01 08:29] VITALS: BP 93/64
--- NOTE | 2018-12-01 12:29 | NUR ---
PT WOKE UP, AND ABLE TO TAKE LACTULOSE VIA ORAL. AT SAME TIME, PT WAS YELLING TO GO TO BATHROOM. ASSIST PT USE BSC, BUT NO BM. PT PRESENT ANGRY AND AGITATIVE, AND WANT TO LEAVE. HELP PT BACK TO BED, AND PUT RESTRAINTS BACK ON. WILL COTINUE TO MONITOR PT'S MENTAL STATUSE.
[2018-12-01 12:39] VITALS: BP 125/85
--- NOTE | 2018-12-01 13:10 | NUR ---
PT GOT OUT OF RESTRAINTS AND SAT AT BED SIDE. PT STAYED CALM AT THIS TIME AND REQUEST TO OFF RESTRAINTS, STATED HE WILL COOPERATE WITH CARE. PT ORIENTED X 3 AT THIS TIME. ASSISTED PT CALLED HIS COUSIN. PT FOLLOW COMMAND BACK TO BED, AND EATING LUCH, AND TALKED APPROPRIATELY. BED ALARM ON FOR SAFETY PRECAUTION. WILL CONTINUE TO MONITOR.
--- NOTE | 2018-12-01 13:26 | NUR ---
RAMON DANIELSON MI AWARE PT IS OFF RESTRAINT. PT TALKED TO DIRECTOR OF PATIENT CARE REGARDING HIS CARE PLAN. BY THIS TIME PT FOLLOW COMMAND. REMAIN CALM.
--- NOTE | 2018-12-01 16:14 | NUR ---
PT STAYING CALM AND FOLLOW COMMAND. ASSIST PT USED BSC. PT HAD BM, LOOSE STOOL. BED ALARM ON FOR SAFETY PRECAUTION.
[2018-12-01 17:54] VITALS: BP 128/51
--- NOTE | 2018-12-01 17:59 | NUR ---
PT REST ON BED EATING DINNER. PT REMAINING CALM AND COMMUNICATE APPROPRIATELY. PT IS OFF RESTRAINT BY THIS TIME.
--- NOTE | 2018-12-01 19:30 | NUR ---
REPORT RECIEVED FROM DAY SHIFT RN. PATIENT WAS SEEN AND IS RESTING COMFORTABLY IN BED. ON ROOM AIR. NO SOB OR DISTRESS NOTED. BREATHING IS EVEN AND UNLABORED. A/OX4. SEIZURE PRECAUTIONS IN PLACE. BED ALARM ON. DENIES CHEST PAIN. NO C/O OF PAIN. IV TO THE LFA WRAPPED. PATENT AND INTACT. NO REDNESS OR SWELLING NOTED. ISLAND DRESSING NOTED ON THE RFA. SWELLING ON THE HAND BILATERALLY. NOT ON RESTRAINTS AT THIS TIME. PATIENT IS COOPERATIVE AND CALM. FOLLOWS COMMANDS. COMFORT AND SAFETY MEASURES ARE MAINTAINED. CALL LIGHT IS WITHIN REACH. INSTRUCTED PATIENT TO CALL FOR ASSISTANCE. BED IS LOCKED AND IN THE LOWEST POSITION. SIDE RAILS UP X2. WILL CONTINUE TO MONITOR PATIENT.
--- NOTE | 2018-12-01 19:36 | NUR ---
ENDORSED PT'S REPORT TO COMING NURSE. PT REMAINING CALM BY THIS TIME. PT IS OFF RESTRAINTS. PT REPORTED PAIN WHILE URINATION, PINK BLOOD NOTED IN URINE. PT BREATHING ON RA, EVEN, UNLABORED. IV SITE PATENT, INTACT. IVF INFUSING WELL.
[2018-12-01 21:02] VITALS: BP 113/81
--- NOTE | 2018-12-01 21:50 | NUR ---
PATIENT CLEANED AND MADE COMFORTABLY IN BED. SAFETY MEASURES MAINTAINED. CALL LIGHT WITHIN REACH. BED ALARM ON. FAMILY AT BEDSIDE.
--- NOTE | 2018-12-01 23:45 | NUR ---
PATIENT CALLED STATING THAT HIS LFA IV WAS BLEEDING. IV WAS ASSESSED AND WAS BLEEDING ALL OVER DRESSING AND LEAKING OUT. IV WAS REMOVED. CATHETER WAS INTACT. PATIENT'S ARM WAS CLEANED. NEW IV WAS INSERTED TO THE DMITRI 22G. PATENT AND INTACT. INFUSING WELL. NO REDNESS OR SWELLING NOTED. EDUCATED PATIENT TO BE CAUTIOUS OF HIS IV. PATIENT VERBALIZED UNDERSTANDING.
--- NOTE | 2018-12-02 03:48 | NUR ---
PATIENT C/O 08/[address] STEEL. PRN TYLENOL WAS ORDERED. ADMINSTERED PRESCRIBED. WILL CONTINUE TO MONITOR
--- NOTE | 2018-12-02 05:05 | NUR ---
PATIENT STATED TYLENOL DID NOT RELIEVE HIS HEADACHE. DR. STEEL NOTIFIED. ORDERED TORADOL. ADMINISTERED PRESCRIBED. WILL CONTINUE TO MONITOR PATIENT.
[2018-12-02 05:18] VITALS: BP 125/69
--- NOTE | 2018-12-02 06:22 | NUR ---
PATIENT HARDLY SLEPT THOUGHOUT THE NIGHT, BUT IS SLEEP AT THIS TIME. FAMILY AT BED SIDE. NO ACUTE CHANGED NOTED. A/OX4. SEIZURE PRECAUTIONS IN PLACE. VITALS ARE BP 125/69 (88), HR 85, T 99.2, RR 18, O2 95%. NO SOB OR DISTRESS NOTED. DENIES CHEST PAIN. COMFORT AND SAFETY MEASURES IN PLACE. BED IS LOCKED AND IN THE LOWEST POSITION. PADDED SIDE RAILS UP X2. CALL LIGHT IS WITHIN REACH. INSTRUCTED PATIENT TO CALL FOR ASSISTANCE. WILL ENDORSE CARE TO DAY SHIFT RN.
[2018-12-02 06:50] LABS: CALCIUM 7.5 mg/dL (8.5-10.1); CARBON DIOXIDE 26.3 mmol/L (21-32); CHLORIDE SERUM 108 mmol/L (98-107); CREATININE SERUM 0.8 mg/dL (0.7-1.3); GFR1 > 60 mL/min; GLUCOSE SERUM 102 mg/dL (74-106); POTASSIUM SERUM 3.4 mmol/L (3.5-5.1); SODIUM SERUM 140 mmol/L (136-145)
[2018-12-02 07:30] LABS: PLATELET COUNT 79 x10^3mcL (130-400); RED CELL DISTRIBUTION WIDTH 17.2 % (11.5-14.5)
--- NOTE | 2018-12-02 07:30 | NUR ---
RECEIVED PATIENT ASLEEPING AROUSABLE, NO ACUTE DISTRESS NOTED, FRIEND REMAIN AT BEDSIDE. TELE #[id number] NOTED. IV TO DMITRI INTACT AND INFUSING WELL, NO SWELLING NOTED. CONT TO MONITOR. CALL LIGHT IN REACH.
[2018-12-02 09:18] VITALS: BP 94/57
--- NOTE | 2018-12-02 09:34 | NUR ---
PATIENT AWAKE/ALERT IN BED TRANSFER PHONE CALL TO PATIENT. GAVE PO MEDS PATIENT TOOK ALL WITH PROBLEM. PATIENT SITTING UP AT SIDE OF BED FOR EATING HIS BREAKFAST. CALL LIGHT IN REACH.
--- NOTE | 2018-12-02 10:46 | NUR ---
PATIENT UP IN CHAIR WITH MAX ASSIST, SHAJI KIM GAVE PATIENT BATH AT BEDSIDE. PATIENT INSISTENT WANT SHOWER, THREE STAFFS ASSIST PATIENT UNSTEADY GAIT, INFORM PATIENT NOT ABLE TO WALK PATIENT TO BATHROOM FOR SHOWER AND HIGH RISK FOR FALL; PATIENT NON-COMPLIANT WITH NURSE YELLING AND SCREAM; TOOK 4 STAFFS TO PUT PATIENT BACK TO BED. FALL PRECAUTIONS IMPLEMENTING, BED ALARM ACTIVATED. CALL LIGHT IN REACH.
--- NOTE | 2018-12-02 11:31 | NUR ---
PATIENT RESTING IN BED CALM, INFORM PATIENT WAITING FOR [place] ESCOB[facility] GEOSPATIAL SYSTEMS INTEGRATOR TO CALL BACK PATIENT WANT TO SPEAK WITH DOCTOR. LACTULOSE PO GIVEN. PATIENT TOOK WITHOUT PROBLEM. CONT TO MONITOR. CALL LIGHT IN REACH AND BED ALARM IN PLACE.
--- NOTE | 2018-12-02 12:00 | NUR ---
SPOKE WITH STAN LINDO AND F/U WITH TRANSFER, PER CM AWAITING FOR [facility] TO CALL FOR BED.
--- NOTE | 2018-12-02 12:58 | NUR ---
PATIENT KEEP INSISTING ON LEAVING THE HOSPITAL, JAGJIT ESCOBAR AT BEDSIDE TALK/EXPLAINING POC TO PATIENT ASKING TO STAY UNTIL TRANSFER TAKE PLACE. PATIENT VERBAL WILL STAY TODAY.
[2018-12-02 13:34] VITALS: BP 113/71
--- NOTE | 2018-12-02 14:55 | NUR ---
Initial Nutrition Assessment Dx: AMS, Polysubstance abuse PMHx: Polysubstance abuse, cirrhosis PSHx: Unknown Labs: (12/02) Na 140, K 3.4L, BG 102, BUN 5L, Cr 0.8, ALT 69H, AST 117H, Ammonia 123H, WBC 4.3L, H/H 11.3L/32L Meds: Tylenol, Cardizem, Colace, Lactulose, Zofran, KCl, Zifaxan, NSIV Diet: Regular PO Intake: (12/02) B/L 100% (12/01) B: 100% L: refused, too lethargic to consume foods D: 100% Ht: 67" (170 cm) Wt: 152# (69 kg) BMI: 23.8 (WNL) IBW: 148# %IBW: 103% UBW: Unknown Age: 48 y/o male Food Allergies: NKFA Skin: Scabs to BLE, RFA tear Balwinder: 15 Edema: B/L hands swelling GI: Last BM x 1 (12/01) loose d/t lactulose Per H&P, pt. admitted with AMS associated with drowsiness, lethargy, and dizziness without c/o N/V. Admission history partial d/t pt. with confusion and unable to answer questions per provider. No acute events overnight per provider progress notes, although continued confusion and lethargy present. US abdomen conducted on 11/25 with findings suggesting cirrhotic liver with evidence of portal HTN, TIPS, and mild splenomegaly per provider notes. Abdominal X-ray conducted on 11/26 to confirm NG tube placement; tube seen in the stomach per provider notes. Transferred to ICU for severe lethargy on 11/26 with NG insertion for TF's, which was D/C'd on 11/27. Plans in place to transfer pt. to [facility] per bed huddle discussion. Pt. noted with intermittent lethargy with meals, but has improved since admission. Tolerating regular diet without reported GI distress. Problem with: No c/o N/V/D/C Problems with: Chewing: N Swallowing: N Current appetite: Good Recent wt change: None %wt change: N/A Vitamin/Supplement use: Unknown Special diet at home: Regular Physical activity: None Education: No diet education provided during visit. Estimated Nutritional Needs Based on actual body weight 69 kg: Energy: 1091-4415 kcal/d (25-27 kcal/kg- adult maintenance) Protein: 41-55 g/d (0.6-0.8 g/kg)-elevated ammonia, AMS, Hx cirrhosis Fluid: 1585-4283 ml/d (1 ml/kcal-fluid balance) or per doctor Nutrition Diagnosis 1. Altered nutrition related laboratory values r/t hepatic dysfunction and altered mental status AEB measured ammonia level 117 (and continuing to trend up despite lactulose administration). Intervention/RD recommendations 1. Continue regular diet as ordered and as tolerated. 2. If PO intake <75% by following assessment, will consider adding ONS for supplementation. Monitor/Evaluate Goal: PO intake at least 75% of estimated needs Monitor: PO intake, Labs, GI function, diet tolerance F/U in 3-5 days as moderate risk (12/05-12/07)
--- NOTE | 2018-12-02 14:56 | NUR ---
Intervention/RD recommendations 1. Continue regular diet as ordered and as tolerated.
[2018-12-02 15:58] VITALS: BP 113/71
--- NOTE | 2018-12-02 16:06 | NUR ---
PROVIDE BEDSIDE COMMODE AND ASSIST PATIENT ON THE COMMODE. CALL LIGHT IN REACH. INSTRUCT PATIENT TO CALL FOR ASSISTANCE WHEN DONE.
[2018-12-02 17:21] VITALS: BP 109/57
--- NOTE | 2018-12-02 17:45 | NUR ---
PATIENT SLEEPING AT THIS TIME, DINNER TRAY LEFT ON BEDSIDE TABLE. URINAL EMPTIED 200ML AND BSC X 1 BM. CONT TO MONITOR.
--- NOTE | 2018-12-02 18:20 | NUR ---
PATIENT REMAIN SLEEPING AT THIS TIME. CALL PATIENT UP TO GIVE LACTULOSE PATIENT WANT "I TAKE IT LATER". INFORM PATIENT HIS COUSIN DEDE CALL. CALL LIGHT IN REACH. CONT TO MONITOR.
--- NOTE | 2018-12-02 18:59 | NUR ---
PATIENT AWAKE/ALERT IN BED, SAT UP AT SIDE OF BED FOR DINNER. GAVE LACTULOSE PO. PATIENT ON THE PHONE WITH FAMILY MEMBER. CALL LIGHT IN REACH. PATIENT WANT HIS HIV MEDS INFORM PATIENT FAMILY TO BRING IN WILL GET OKAY FROM DOCTOR TO USE PATIENT OWN MEDS. CARE ENDORSE TO ON-COMING NURSE.
--- NOTE | 2018-12-02 20:06 | NUR ---
PT SEEN SITTING IN BED. A/O X 4. ON TELE #17. DENIES CHEST PAIN AT THIS TIME. BREATHING IS EVEN AND UNLABORED. BOWEL SOUNDS ACTIVE IN ALL QUADRANTS. SCABS ON BLE. DRESSING ON RFA IS CDI.
[2018-12-02 20:55] VITALS: BP 99/58
--- NOTE | 2018-12-02 21:20 | NUR ---
SCHEDULED MEDS GIVEN. PT TOLERATED MEDS WELL. WILL CONTINUE TO MONITOR.
--- NOTE | 2018-12-02 23:19 | NUR ---
ADMINISTERED PT'S LACTULOSE. PT TOLERATED WELL. WILL CONTINUE TO MONITOR.
--- NOTE | 2018-12-03 00:57 | NUR ---
PT COMPLAINED OF 4/10 BACK PAIN. ADMINISTERED PRN TYLENOL. WILL CONTINUE TO MONITOR.
--- NOTE | 2018-12-03 03:42 | NUR ---
PT SEEN SLEEPING. NO ACUTE DISTRESS NOTED AT THIS TIME. WILL CONTINUE TO MONITOR.
[2018-12-03 05:23] VITALS: BP 99/55
[2018-12-03 06:39] LABS: CALCIUM 7.9 mg/dL (8.5-10.1); CARBON DIOXIDE 27.2 mmol/L (21-32); CHLORIDE SERUM 110 mmol/L (98-107); CREATININE SERUM 0.8 mg/dL (0.7-1.3); GFR1 > 60 mL/min; GLUCOSE SERUM 89 mg/dL (74-106); POTASSIUM SERUM 3.2 mmol/L (3.5-5.1); SODIUM SERUM 141 mmol/L (136-145)
--- NOTE | 2018-12-03 07:21 | NUR ---
ENDORSED CONTINUITY OF CARE TO ONCOMING NURSEALBERT.
--- NOTE | 2018-12-03 07:55 | NUR ---
SKIN TEAR TO RFA, CLUSTER OF TEAR, MINOR BLEEDING TO SITE. CLEANED, CHANGED AND SECURED DRESSING. PT TOLERATED PROCEDURE WELL. DENIES PAIN AT SITE. CALL LIGHT WITHIN REACH.
[2018-12-03 09:07] LABS: BASOPHIL % 1.1 % (0-2)
[2018-12-03 09:08] LABS: PLATELET COUNT 69 x10^3mcL (130-400); RED CELL DISTRIBUTION WIDTH 16.7 % (11.5-14.5)
[2018-12-03 09:10] VITALS: BP 108/66
--- NOTE | 2018-12-03 09:56 | NUR ---
PASSED MORNING MEDICATIONS. PT AWAKE, ALERT, ORIENTED x4, CALM AND COOPERATIVE OF CARE AT MOMENT. DENIES ANY PAIN. IV PRESENT TO DMITRI#20. PT REFUSES IV FLUIDS. PT ON REGULAR DIET, GOOD APPETITE. BED IN LOWEST POSITION. CALL LIGHT WITHIN REACH.
--- NOTE | 2018-12-03 12:48 | NUR ---
PT VOICING WISHES TO LEAVE BECAUSE HE CANNOT WAIT ANY LONGER, SAYS HE HAS TO PAY SOME BILLS. PT DETERMINED TO LEAVE, AND STATED HE CANNOT WAIT FOR TO COME. EXTRUSION TECHNICIAN ANTONIETTA CALLED AND INFORMED OF SITUATION. PT REPEATED HE CANNOT WAIT FOR TRANSFER. PT REPORTS HE WILL TAKE CARE OF HIS BILLS AND THAT HE WILL GO TO [facility] TO TAKE CARE OF HIS MEDICAL PROBLEM. TELE BOX REMOVED, IV CATHETER REMOVED. CATHETER INTACT. PT ESCORTED OUT OF FACILITY SAFELY.
== END 2018-12-03 12:50 | disposition left against medical advice (07) | DRG 816 ==
LOC: ED 13:21 → DU 15:51 → IC 15:51 → DU 20:22 → IC 11-26 10:42 → DU 11-27 17:28
PROVIDERS: Family Medicine; Specialist; ADMIT Internal Medicine
DX: T65.91XA Toxic effect of unspecified substance, accidental (unintentional), initial encounter (principal); G92 Toxic encephalopathy; E43 Unspecified severe protein-calorie malnutrition; D61.818 Other pancytopenia; K76.6 Portal hypertension; D68.9 Coagulation defect, unspecified; D68.59 Other primary thrombophilia; E83.39 Other disorders of phosphorus metabolism; K72.90 Hepatic failure, unspecified without coma; E83.42 Hypomagnesemia; K74.60 Unspecified cirrhosis of liver; F12.10 Cannabis abuse, uncomplicated; F15.10 Other stimulant abuse, uncomplicated; F13.10 Sedative, hypnotic or anxiolytic abuse, uncomplicated; D53.9 Nutritional anemia, unspecified; E87.6 Hypokalemia; Z68.26 Body mass index [BMI] 26.0-26.9, adult; Y92.89 Other specified places as the place of occurrence of the external cause; Z71.51 Drug abuse counseling and surveillance of drug abuser
CPT/HCPCS: 82962; 83880; G0480; J1885; J2060; J2310; J3475; J3480; J7030; Q0092

== ENCOUNTER 2019-04-03 13:30 | Inpatient (IN) | payer MEDICAID ==
[~2019-04-03] VITALS: Ht 170.2 cm; Wt 56.0 kg
[~2019-04-03 13:30] MED LIST: LAC30L PR
--- NOTE | 2019-04-03 14:18 | NUR ---
PATIENT CAME INTO ED VIA AMBULANCE. FAMILY NOTICED PATIENT HAS BEEN BECOMING MORE WEAK AND "ALMOST PASSING OUT" RECENTLY. FAMILY STATES THAT WHENEVER THIS OCCURS, PATIENTS "AMMONIAS HIGH". PATIENT HAS SIGNIFICANT HISTORY OF CIRRHOSIS, HIV, HEMORRHAGIC STROKE WITH CRANIOTOMY TO RIGHT SIDE OF HEAD, AND LEFT SIDED DEFICITS. PATIENT IS NONVERBAL PER FAMILY, PATIENT IS AT BASELINE. PATIENT HAS GTUBE TO LUQ AND CLOUDINESS AND FIXED PUPIL NOTED TO RIGHT EYE S/P STROKE. PATIENT IS AWAKE AND TRACKING APPROPRIATELY, RESPIRATIONS EVEN UNLABORED. NAD NOTED. AWAITING MSE.
--- NOTE | 2019-04-03 14:57 | NUR ---
MSE COMPLETED BY DR REYNA.
--- NOTE | 2019-04-03 15:12 | NUR ---
PT TAKEN TO CT VIA [facility] NOTED.
--- NOTE | 2019-04-03 15:24 | NUR ---
PT RETURNED FROM CT VIA [facility], WARM BLANKET PROVIDED.
[2019-04-03 15:28] LABS: PLATELET COUNT 78 x10^3mcL (130-400); RED CELL DISTRIBUTION WIDTH 16.9 % (11.5-14.5)
[2019-04-03 15:55] LABS: BAND NEUTROPHIL 2 % (0-10); BASOPHIL 0 % (0-2); MONOCYTE 17 % (0-7); SEGMENTED NEUTROPHILS 53 % (37-75); rbc morphology (normal/abnorm) ABNORMAL (NORMAL)
[2019-04-03 15:56] LABS: PLATELET MORPHOLOGY PLATELETS DECREASED
[2019-04-03 16:04] LABS: CALCIUM 8.9 mg/dL (8.5-10.1); CARBON DIOXIDE 26.2 mmol/L (21-32); CHLORIDE SERUM 112 mmol/L (98-107); CREATININE SERUM 0.5 mg/dL (0.7-1.3); GFR1 > 60 mL/min; GLUCOSE SERUM 74 mg/dL (74-106); POTASSIUM SERUM 3.6 mmol/L (3.5-5.1); SODIUM SERUM 146 mmol/L (136-145)
[2019-04-03 16:10] LABS: ALKALINE PHOSPHATASE 224 U/L (46-116); ALT/SGPT 37 U/L (16-63); AST/SGOT 68 U/L (15-37); BILIRUBIN TOTAL 1.55 mg/dL (0.20-1.00)
[2019-04-03 16:10] LABS: microscopic required? NO
[2019-04-03 16:19] LABS: UA SPECIFIC GRAVITY 1.015 (1.005-1.035); urine erythrocyte NEGATIVE (NEGATIVE)
--- NOTE | 2019-04-03 16:51 | NUR ---
PT KEEPS GOING TO R SIDE OF BED AND HANGING OFF OF BED AND AT RISK FOR INJURY. PT CONSTANTLY TRYING TO TAKE EQUPIPMENT OFF. PT PLACED IN 4 POINT RESTRAINTS FOR PATIENT SAFETY. PER OK BY DR REYNA
[2019-04-03] MEDS ORDERED: XIFAXAN550 M1 GT (17:08)
[2019-04-03] MEDS ORDERED: LACTULOSE10 GM/152 GT (17:08)
[2019-04-03] MEDS ORDERED: ZITHROMAX500 MG GT (17:09)
[2019-04-03] MEDS ORDERED: TRUVADA 200 MG1 EACH GT (17:09)
[2019-04-03] MEDS ORDERED: ROB1 PO (17:10)
[2019-04-03] MEDS ORDERED: KEPPRA500 MG GT (17:11)
[2019-04-03] MEDS ORDERED: LEVOTHYROXINE0.1 M2 GT (17:11)
[2019-04-03] MEDS ORDERED: BACTRIM DS1 TAB GT (17:12)
[2019-04-03] MEDS ORDERED: PROVIGIL200 MG GT (17:12)
[2019-04-03] MEDS ORDERED: ISENTRESS400 MG GT (17:12)
--- NOTE | 2019-04-03 18:04 | NUR ---
PT URINATED ON FLOOR, GOWN, AND GURNEY. PT AND BEDDING CLEANED UP AND PLACED INTO CLEAN GOWN.
--- NOTE | 2019-04-03 18:25 | NUR ---
PT MOM CALLED AND STATES SHE WILL BE HERE IN 10 MIN
--- NOTE | 2019-04-03 18:47 | NUR ---
PT MOM AT BEDSIDE. DR REYNA AT BEDSIDE TALKING WITH MOM ABOUT RESULTS AND PLAN OF CARE
--- NOTE | 2019-04-03 19:00 | NUR ---
PT MOM STATES SHE WILL RETURN IN A BIT. STATES SHE HAS TO GO HOME TO TAKE THE BABY WHO IS WAITING IN THE LOBBY HOME
--- NOTE | 2019-04-03 19:19 | NUR ---
REPORT RECEIVED FROM SANTI, TO ASSUME CARE OF PT. PT IS IN POSITION OF COMFORT. RESP E/U. VSS. PT CLEANED AND PROVIDED CLEAN SHEETS. WILL CONTINUE TO MONITOR.
--- NOTE | 2019-04-03 19:51 | NUR ---
PT KEEPS PULLING BLANKETS AND ACTIVELY MOVING ON GURNEY. UNABLE TO KEEP PT IN POSTION ON GURNEY. PT KEEPS WANTING TO BITE BLANKET, PULL ON GTUBE AND PULL WIRES. ACTIVELY CHECKING ON PT TO ASSURE PT SAFETY. RESTRAINTS IN USE FOR PT SAFETY. VSS. +CAP REFILL ON UPPER AND LOWER LIMBS. WILL CONTINUE TO MONITOR.
--- NOTE | 2019-04-03 19:55 | NUR ---
TRIAL RELEASE SOFT RESTRAINTS WILL CONTINUE TO MONITOR.
--- NOTE | 2019-04-03 19:59 | NUR ---
REPOPRT GIVEN TO CHRISTIANO MAGALLANES, TO ASSUME CARE OF PT.
--- NOTE | 2019-04-03 20:09 | NUR ---
RECEIVED PT FROM ED VIA [facility] [employer], CAME IN DUE TO NEAR SYNCOPE. PT HAS HIS EYES OPEN, DOES NOT FOLLOW COMMANDS, NON-VERBAL. W/ LEFT SIDED WEAKNESS. NO SOB NOTED, LUNG SOUNDS DIMINISHED ON AUSCULTATION. NO S/S OF CHEST PAIN/PRESSURE, SR ON THE MONITOR. NO S/S OF ABDOMINAL DISCOMFORT. W/ VIETNAMESE 20 PEG TUBE ON THE ABDOMEN, CLAMPED, LAKSHMI-WOUND IS PINK. URINE INCONTINENT. W/ ECCHYMOSIS ON BUE, SKIN TEAR ON THE RFA DRESSING CDI, DRY SCAB ON THE LEFT HEEL AND LEFT TOES PINKISH DISCOLORATION. W/ BILATERAL SOFT WRIST RESTRAINTS, NO INJURY NOTED TO THE AREA. SIDE RAILS UPX2. CALL LIGHT ON REACH. HOB ELEVATED AT 30 DEG. ENDORSED TO PRIMARY NURSE CHRISTIANO FOR CONTINUITY OF CARE
--- NOTE | 2019-04-03 20:13 | NUR ---
PT TAKEN UPSTAIRS BY EMT AND JAMES MAGALLANES.
[2019-04-03 20:55] LABS: CHOLESTEROL/HDL RATIO 2.6; MAGNESIUM 1.6 mg/dL (1.8-2.4); PHOSPHOROUS 3.6 mg/dL (2.5-4.9)
[2019-04-03 21:01] VITALS: BP 109/67
--- NOTE | 2019-04-04 00:03 | NUR ---
STARTED ON IVF, NS AT 100ML/HR, INFUSING VIA LFA, SITE CLEAR. INCONT. OF URINE, CLEANED AND KEPT COMFORTABLE. RESTLESS AT TIMES,TRYING TO CLIMB OUT OF BED. WITH BILAT. SOFT WRIST RESTRAINTS FOR SAFETY.WILL CONTINUE TO MONITOR.
[2019-04-04 03:43] VITALS: BP 129/86
--- NOTE | 2019-04-04 03:58 | NUR ---
INCONT. OF LARGE BROWNISH COLOR LOOSE STOOL, CLEANED , LINEN CHANGED, KEPT COMFORTABLE. BILAT. SOFT WRIST RESTRAINTS IN PLACE, TO PREVENT PT FROM PULLING OUT TUBES. GT IN PLACE AND CLAMPED.IVF INTACT AND INFUSING WELL, SITE CLEAR. WILL CONTINUE TO MONITOR.
[2019-04-04 05:34] VITALS: BP 144/53
--- NOTE | 2019-04-04 06:42 | NUR ---
DUE MEDS GIVEN ORDERED. KANDACE. WELL. NO VOMTING NOTED. GT INTACT AND PATENT. INCONT. OF URINE AND STOOL, CLEANED AND KEPT COMFORTABLE. IVF INTACT AND INFUSING WELL, SITE CLEAR. BILAT. SOFT WRIST RESTRAINTS IN PLACE FOR SAFETY. WILL ENDORSE TO INCOMING NURSE.
[2019-04-04 07:14] LABS: BASOPHIL % 1.1 % (0-2)
[2019-04-04 07:15] LABS: PLATELET COUNT 77 x10^3mcL (130-400); RED CELL DISTRIBUTION WIDTH 16.6 % (11.5-14.5)
--- NOTE | 2019-04-04 07:26 | NUR ---
ASSUMED CARE OF PATIENT. SEEN SITTING ON EDGE OF BED. NO COMPLAINTS OF PAIN OR DISCOMFORT. IV ON LFA PATENT AND INFUSING 100 ML/HR NS. WILL CONTINUE TO MONITOR.
--- NOTE | 2019-04-04 07:28 | NUR ---
ASSUMED CARE OF PATIENT. PATIENTS RESTRAINTS INTACT. IV ON RIGHT HAND SALINE LOCKED, NO SIGNS OF INFILTRATION NOTED. WILL CONTINUE TO MONITOR.
[2019-04-04 07:46] LABS: ALBUMIN 2.2 g/dL (3.4-5.0); ALKALINE PHOSPHATASE 224 U/L (46-116); ALT/SGPT 42 U/L (16-63); AST/SGOT 72 U/L (15-37); BILIRUBIN DIRECT 1.31 mg/dL (0.0-0.2); BILIRUBIN TOTAL 2.22 mg/dL (0.20-1.00); CALCIUM 9.6 mg/dL (8.5-10.1); CARBON DIOXIDE 26.3 mmol/L (21-32); CHLORIDE SERUM 112 mmol/L (98-107); CREATININE SERUM 0.5 mg/dL (0.7-1.3); GFR1 > 60 mL/min; GLUCOSE SERUM 84 mg/dL (74-106); POTASSIUM SERUM 3.6 mmol/L (3.5-5.1); SODIUM SERUM 145 mmol/L (136-145); TOTAL PROTEIN, SERUM 8.1 g/dL (6.4-8.2)
--- NOTE | 2019-04-04 08:19 | NUR ---
DR. ARSHAD PAGED FOR SIGNATURE FOR RESTRAINT ORDER.
--- NOTE | 2019-04-04 08:32 | NUR ---
MEDICATIONS CRUSHED AND PROVIDED THROUGH [employer]. NO RESIDUAL NOTED.
[2019-04-04 09:15] VITALS: BP 107/71
--- NOTE | 2019-04-04 09:28 | NUR ---
ADL CARE PROVIDED. ZGUARD APPLIED TO BUTTOCKS. PATIENT SEEN TUGGING AT RESTRAINTS, HOWEVER PATIENT IS QUIET WITH NO APPARENT S/SX OF PAIN OR DISCOMFORT. PATIENT REPOSITIONED.
--- NOTE | 2019-04-04 10:17 | NUR ---
PATIENT SEEN RESTING WITH EQUAL AND UNLABORED RESPIRATIONS. SKIN REMAINS AT BASELINE. NO NEW SKIN ISSUES NOTED.
--- NOTE | 2019-04-04 10:25 | NUR ---
PER PHARMACY, NO TRUVADA IN STOCK. FAMILY CALLED TO BRING IN HOME STOCK.
--- NOTE | 2019-04-04 10:44 | NUR ---
SEIZURE PRECAUTIONS INITIATED. PADS PLACED TO SIDE RAILS.
--- NOTE | 2019-04-04 10:48 | NUR ---
TRUVADA AND ISENTRESS PROVIDED BY PATIENT FAMILY. DELIVERED TO PHARMACY.
--- NOTE | 2019-04-04 11:54 | NUR ---
Discount pharmacy card and list to low cost medical clinics given to patient by Irma.
--- NOTE | 2019-04-04 12:14 | NUR ---
AIR MATTRESS PLACED.
--- NOTE | 2019-04-04 12:38 | NUR ---
DR. ARSHAD NOTIFIED OF NEED FOR SIGNATURE FOR RESTRAINT RENEWAL.
--- NOTE | 2019-04-04 12:42 | NUR ---
RESTRAINT RENEWAL SIGNED BY AND PLACED IN CHART.
[2019-04-04 12:44] VITALS: BP 110/70
--- NOTE | 2019-04-04 13:02 | NUR ---
JEVITY 1.2 TUBE FEEDING INITIATED AT 15ML/HR WITH 150ML/Q4H WATER FLUSH ORDERED. 5ML RESIDUAL PRIOR TO INTIATION.
--- NOTE | 2019-04-04 14:06 | NUR ---
EPISODE OF FECAL AND URINE INCONTINENCE. PERICARE PROVIDED.
--- NOTE | 2019-04-04 15:24 | NUR ---
EPISODE OF INCONTINENCE. LAKSHMI CARE PROVIDED.
--- NOTE | 2019-04-04 15:26 | NUR ---
Initial Nutrition Assessment: 248T/A SHELLY MOSER IA HR Dx: Hepatic encephalopathy PMHx: Liver cirrhosis w/hepatic encephalopathy, polysubstance abuse, TIPS procedure with Portal Vein Occlusion and hemorrhagic stroke PSHx: craniotomy 5mo ago due to hemorrhagic stroke Labs: ALB 2.2L, MG 1.5L, AST 72H, AMMONIA 147H, Meds: Cephulac, Colace, zofran Diet: TF Jevity 1.2 @ 15ml/hr, goal 30ml/hr, FWF 150cc Q4H PO Intake: 0%, Pt was NPO, started on TF (04/04) in AM Ht: 170.18 cm (67") Wt: 56.2 kg (123#) BMI: 19.4 kg/m2 Bed scale: 124# IBW:148# (67 kg) %IBW: 83 UBW: unable to access as pt was sleeping Age: 48/M Food Allergies: NKFA Skin: dry scab on L heel, ecchymosis BUE Balwinder: 18 Edema: none GI: incontinent large loose stools, PEG tube placement Last BM: 04/03 Per H&P, Pt is a 48yo male with PMH of Liver cirrhosis w/hepatic encephalopathy, polysubstance abuse, TIPS procedure with Portal Vein Occlusion and hemorrhagic stroke 5mo ago with residual left-sided deficits ans s/p craniotomy who was brought to the ER by ambulance after family noticed him to be weaker and "almost passing out". RDN Visit (04/04): Pt was sleeping with no family at bedside. TF Jevity 1.2 was being infused @ 15 ml/hr. Per ELPIDIO Hermosillo, pt is tolerating TF without any residuals. FNS received consult for "nutrition evaluation" on 04/04. Problem with: N/V/D/C: no Problems with: Chewing/Swallowing: pt is TF dependent Current appetite: unable to access as pt was sleeping Recent wt change: unable to access %wt change: unable to access Vitamin/Supplement use: unable to access Special diet at home: unable to access Physical activity: unable to access Nutrition education given: Not appropriate/possible at this time. Food-drug interactions: Colace- high fiber w/1200-1500ml Education given: no Estimated Nutritional Needs Based on actual body weight 56.2 kg Energy: 1337-3350 kcal/d (30-35 kcal/kg) Protein: 56.2- 67 g/d (1.0-1.2 g/kg)- Fluid: 8409-4747 ml/d (1 ml/kcal) or per doctor Nutrition Diagnosis 1. Inadequate enteral nutrition infusion related to current TF rate as evidenced by estimated nutrient needs. Intervention 1. Recommend Jevity 1.2 @15 ml/hr, goal 65ml/hr. FWF 70ml Q4H. Goal rate will provide 1872 kcal and 86g protein. This meet 100% of calorie and protein needs of the patient. Monitor/Evaluate Goal: TF intake at least 75% of estimated needs Monitor: TF intake, Labs, GI function F/U in 2-3 days as high risk 04/06-
[2019-04-04 16:15] VITALS: BP 106/72
--- NOTE | 2019-04-04 17:05 | NUR ---
DORCAS FOSS PROVIDED FOR MOANING. PATIENT SEEN ATTEMPTING TO REMOVE UNDERWEAR BY HIMSELF. CONTINUES TO MOAN AFTER ADL CARE.
--- NOTE | 2019-04-04 18:46 | NUR ---
ADL CARE PROVIDED. ZGUARD APPLIED TO BUTTOCKS. PATIENT DOES NOT HAVE S/SX OF PAIN OR DISCOMFORT. RESPIRATIONS EQUAL AND UNLABORED. WILL ENDORSE CARE TO ONCOMING RN.
--- NOTE | 2019-04-04 19:55 | NUR ---
SHIFT REASSESSMENT DONE.PATIENT ALERT,DOES NOT FOLLOW COMMANDS.FAMILY AT BEDSIDE,SUPPORTIVE OF CARE.ROOM AIR.NS AT 100 CC/ HOUR.IV SITE LFA.SOFT WRIST RESTRAINT INTACT,RELEASE PROTOCOL.GEN WEAKNESS,MOSTLY L SIDE.BEDBOUND.TELE 17 SR.PEG FEEDING INFUSING,TOLERATING WELL.DRY SCAB L HEEL,SKIN TEAR RFA,ECCHYMOSIS BUE.SCD ORDERED.INCONTINENT,GOOD SKIN CARE PROVIDED.WATCH CLOSELY FOR SAFETY.
--- NOTE | 2019-04-04 21:09 | NUR ---
PATIENT REMOVING HIS TELE,AND TRYING TO PULL OUT GT,RESTRAINT REAPPLIED AND REPOSITIONED.HAD NORCO A WHILE AGO,RESTLESS,ZOFRAN ALSO GIVEN PRN.WAITING FOR SERVER MANAGER TO CLEAN HIM UP.
--- NOTE | 2019-04-04 21:45 | NUR ---
HS CARE GIVENABD BINDER CHANGE,TRYING TO HIDE GT SO HE WILL NOT MESS WITH IT.GOOD SKIN CARE PROVIDED.IV SITE ELEVATED ON PILLOW.
[2019-04-04 21:47] VITALS: BP 120/78
--- NOTE | 2019-04-04 23:16 | NUR ---
PATIENT DISCONECTED HIS GT,IV DISLODGE AND REMOVED.SOFT WRIST RESTRAINT REPOSITIONED.
--- NOTE | 2019-04-05 00:39 | NUR ---
PATIENT IV,EMELYN PEREIRA WILL START IV.
--- NOTE | 2019-04-05 00:51 | NUR ---
NEW IV SITE LFA 22,WILL RESUME IV.
--- NOTE | 2019-04-05 02:05 | NUR ---
MAG LEVEL FROM YESTERDAY LOW,REPLACED AT 0152/DR STEEL,GT INTACT,FLUSHES WELL.PATIENT GIVEN ANOTHER DOSE OF NORCO.WAS ASLEEP BUT WOKE UP WHEN IM GIVENG MED THRU GT.
--- NOTE | 2019-04-05 04:00 | NUR ---
GT FEEDING TOLERATING WELL AT 15 CC/ HOUR,INCREASE TO 30 CC/ HOUR.AM MEDS GIVEN THRU GT,PATENT,EASY TO FLUSH.
--- NOTE | 2019-04-05 04:32 | NUR ---
REBEKA Nunez TOTAL CARE.INCONTINENT OF URINE/STOOL.ABD BINDER IN PLACE TO HIDE THE GT,PATIENT WILL PULL TUBES,SOFT WRIST RESTRAINT IN PLACE.CIRCULATION ADEQUATE BOTH HANDS,IV SITE SECURED,COVERED WITH DRESSING.
--- NOTE | 2019-04-05 04:32 | NUR ---
PATIENT WATCH CLOSELY FOR SAFETY.
[2019-04-05 05:59] VITALS: BP 119/81
[2019-04-05 07:40] LABS: BASOPHIL % 1.9 % (0-2)
--- NOTE | 2019-04-05 07:48 | NUR ---
Shift change was processed from the Night Nurse. Patient is on bed , awake but restraint for self -injury, pulling medical devices and Self very unsafe behavior. Patient has a sitter for constant monitoring. Sinus Rhythm on monitor and care will be continued given for the day shift.
[2019-04-05 07:50] LABS: CALCIUM 9.4 mg/dL (8.5-10.1); CARBON DIOXIDE 24.3 mmol/L (21-32); CHLORIDE SERUM 114 mmol/L (98-107); CREATININE SERUM 0.4 mg/dL (0.7-1.3); GFR1 > 60 mL/min; GLUCOSE SERUM 78 mg/dL (74-106); POTASSIUM SERUM 3.8 mmol/L (3.5-5.1); SODIUM SERUM 145 mmol/L (136-145)
[2019-04-05 08:30] LABS: PLATELET COUNT 72 x10^3mcL (130-400); RED CELL DISTRIBUTION WIDTH 16.7 % (11.5-14.5)
--- NOTE | 2019-04-05 19:20 | NUR ---
REPORT RECEIVED FROM DAY SHIFT RN. PATIENT WAS SEEN AND IS RESTING COMFORTBALY IN BED WITH SITTER AT BEDSIDE. SEIZURE AND ASPIRATION PRECAUTIONS IN PLACE AND MAINTAINED. BILATERAL SOFT WRIST RESTRAINTS IN PLACE. CIRCULATION AND SKIN INTEGRITY WNL. BREATHING EVEN ON ROOM AIR. NO SOB OR RESP DISTRESS NOTED. NO S/S OF PAIN. IV TO THE LFA INFUSING NS WELL. PATENT AND INTACT. NO REDNESS OR SWELLING NOTED. PEG TUBE IN PLACE WITH CONTINUOUS TUBE FEEDING AT 30ML/HR. COMFORT AND SAFETY MEASURES MAINTAINED. BED IS LOCKED AND IN THE LOWEST POSITION. SIDE RAILS UP X2. CALL LIGHT IS WITHIN REACH. WILL CONTINUE TO MONITOR.
[2019-04-05 20:42] VITALS: BP 117/60
--- NOTE | 2019-04-06 00:21 | NUR ---
LACTULOSE GIVEN THROUGHOUT PEG TUBE. 5ML OF RESIDUALS NOTED AND RETURNED. CIRCULATION AND SKIN INTEGRITY WNL. SITTER AT BEDSIDE. CALL LIGHT IS WITHIN REACH. WILL CONTINUE TO MONITOR.
--- NOTE | 2019-04-06 00:57 | NUR ---
PATIENT IS RESTING IN BED. NO DISTRESS NOTED. AWAKE. CIRCULATION AND SKIN WNL. SOFT WRIST RESTRAINTS BILATERALLY. PEG TUBE IN PLACE WITH CONTINUOUS FEEDING AT 30ML/HR. SITTER AT BEDSIDE. IV TO THE LFA INFUSING WELL. PATENT AND INTACT. NO REDNESS OR SWELLING NOTED. CALL LIGHT IS WITHIN REACH. WILL CONTINUE TO MONITOR.
[2019-04-06 05:36] VITALS: BP 116/58
--- NOTE | 2019-04-06 05:45 | NUR ---
NEW TUBE FEEDING STARTED. JEVITY 1.2 AT 30ML/HR WITH H20 FLUSH AT 150ML Q4H. ADMINISTERED LACTULOSE AND PROTONIX VIA PEG TUBE. 5ML RESIDUALS NOTED AND RETURNED. PATIENT TOLERATING TUBE FEEDING WELL. SITTER AT BEDSIDE, CIRCULATION AND SKIN INTEGRITY, WNL. CALL LIGHT IS WITHIN REACH. WILL CONTINUE TO MONITOR.
--- NOTE | 2019-04-06 06:38 | NUR ---
PATIENT WAS AWAKE MOST OF THE NIGHT. NO ACUTE CHNAGES NOTED. ON BILATERAL SOFT WRIST RESTRIANTS. CIRCULATION AND SKIN INTEGRITY, WNL. SITTER AT BEDSIDE. PATIENT KEEPS PULLING ON PEG TUBE, BITTING PILLOW/BLANKETS, AND KICKING AT TIMES. IV TO THE LFA INFUSING WELL. PATENT AND INTACT. NO REDNESS OR SWELLING NOTED. PEG TUBE FEEDING IN PLACE. JEVITY AR 30ML/HR, TOLERATING WELL. NO DISTRESS NOTED. BREATHING EVEN ON ROOM AIR. NO BM NOTED THROUGHOUT THE SHIFT. COMFORT AND SAFETY MEASURES MAINTAINED. CALL LIGHT IS WITHIN REACH. WILL ENDORSE CARE DAY SHIFT RN.
[2019-04-06 07:04] VITALS: BP 160/100
--- NOTE | 2019-04-06 07:04 | NUR ---
WATER PUMP SERVICER REPORTED BP 160/100. WILL ENDORSE TO EVELYN COY RN
--- NOTE | 2019-04-06 07:25 | NUR ---
RECEIVED PT IN BED, AWAKE AND NON-VERBAL, NOT FOLLOW COMMAND, ON 1:1 SITTER, ON BILATERAL SOFT WRIST RESTRAIN OF UPPER EXTREMITIES, LUNG CLEAR, NO APPRARENT OF DISTRESS/SOB, NO EXPRESSION OF PAIN/ DISCOMFORT, TELE #17, NORMAL SINUS RHYTHM, SKIN D/W/I, ABD ROUND, PEG TUBE INFUSING WELL WITH JEVITIY 1.2 AT RATE 30ML/HR, TOLERATED WELL, BS ACTIVE TO ALL QUADRANT, RESIDUAL 0 ML, ON ASPIRATION PRECAUTION, HOB MAINTAIN AT 30 DEGREE, PALP PULSE TO ALL EXTREMITIES, BED AT LOW POSITION, CALL LIGHT WITHIN REACH, CONTINUE TO MONITOR
[2019-04-06 07:28] LABS: CALCIUM 8.5 mg/dL (8.5-10.1); CARBON DIOXIDE 25.7 mmol/L (21-32); CHLORIDE SERUM 111 mmol/L (98-107); CREATININE SERUM 0.5 mg/dL (0.7-1.3); GFR1 > 60 mL/min; GLUCOSE SERUM 74 mg/dL (74-106); POTASSIUM SERUM 3.2 mmol/L (3.5-5.1); SODIUM SERUM 143 mmol/L (136-145)
[2019-04-06 07:47] LABS: PLATELET COUNT 82 x10^3mcL (130-400); RED CELL DISTRIBUTION WIDTH 16.2 % (11.5-14.5)
[2019-04-06 08:54] LABS: BAND NEUTROPHIL 0 % (0-10); BASOPHIL 0 % (0-2); MONOCYTE 14 % (0-7); SEGMENTED NEUTROPHILS 55 % (37-75)
[2019-04-06 08:55] LABS: PLATELET MORPHOLOGY PLATELETS DECREASED; rbc morphology (normal/abnorm) ABNORMAL (NORMAL)
--- NOTE | 2019-04-06 09:03 | NUR ---
PT CALM IN BED, NOT FOLLOW COMMAND, NO APPARENT OF DISTRESS/ PAIN, AM MED GIVEN VIA PEG TUBE PER EMAR, TOLERATED WELL, NO ASE NOTED AT THIS TIME, FEEDING INFUSING WELL AT RATE 30ML/HR, ASPIRATION PRECAUTION FOLLOWED, HOPB ELEVATED 30 DEGREE, BED AT LOW POSITION, CALL LIGHT WITHIN REACH, CONTINUE TO MONITOR
[2019-04-06 09:23] VITALS: BP 116/54
--- NOTE | 2019-04-06 11:40 | NUR ---
Initial Nutrition Assessment- Dx: ALOC, hepatic encephalopathy PMHx: liver cirrhosis with hepatic encephalopathy, polysubstance abuse, TIPS procedure with portal vein occlusion and hemorrhagic stroke PSHx: craniotomy 5 months ago due to hemorrhagic stroke Labs: (04/06) Na 143, K 3.2 L, Glu 74, BUN 5.0 L, Cr 0.5 L, H/H 12.8/36 Meds: Colace, keppra, mag-ox, morphine sulfate, norco, protonix, sodium chloride 0.9%, Tylenol, zofran Diet: NPO; on TF PO Intakes: N/A Current Nutrition Support: TF Jevity 1.2 at 30 mL/hr via g-tube TF Intake: (04/04) 0 mL, (04/05) 210 mL, (04/06) 470 mL I/O: (04/04) 540/1 (+539), (04/05) 2650, (04/06) 3720/1 (+3719) GTF Residuals: Ht: 67 inches/5'7" Wt: 56 kg/123 pounds BMI: 19.4 kg/m2, normal for age IBW: 148 pounds/67 inches %IBW: 83% UBW: Unable to obtain; Pt nonverbal, no family at bedside. Age: 48 Food Allergies: NKFA Skin: Balwinder 18; skin tear to RFA, BUE discoloration, lt feel dry scab Edema: none noted GI: Last BM 04/05/19 x 2 Pt admitted with dx: toxic metabolic encephalopathy likely 2/2 chronic liver disease, hypernatremia, hypomagnesemia, pancytopenia poss 2/2 liver cirrhosis, severe malnutrition, severe malnutrition, hx of polysubstance abuse, DVT prophylaxis. -Pt is nonverbal at baseline. -Per physician progress note, Pt does not respond to commands, Pt noted to have ammonia level of 147, lactulose increased to 30 cc Q6H. -RDN visited with Pt, CAN and RN at bedside. Pt was seen awake, up in bed, Jevity 1.2 seen infusing at 30 mL/hr (goal reached). Per RN, 0 mL residuals, Pt tolerating feedings well. RN and RDN discussed increasing goal rate to 50 mL/hr, in agreement. Nursing Trigger or Consult - TF/TPN, nutrition eval. Problem with: N: no V: no D: no C: no Problems with: Chewing: yes Swallowing: yes Current TF Regimen provides 720 mL total volume, 864 total kcal, 40 total protein at rate of 30 mL/hr. This meets 51% estimated kcal needs and 59% estimated needs; inadequate. Current appetite: N/A Recent wt changes: %wt change: Vitamin/Supplement: Special Diet at Home: TF Physical activity: None Nutrition education given (specify specific nutrition education and handout given): N/A; Pt on TF Food-drug interactions? N/A Education given? N/A Estimated Nutritional Needs Based on actual body weight of 56 kg. Energy: 8999-9213 kcal/d (30-35 kcal/kg for liver cirrhosis) Protein: 67-84 gm/d (1.2-1.5 gm/kg for liver cirrhosis) Fluid: 7644-3758 mL/d (1 mL/kcal) or per MD. Nutrition Diagnosis 1. Increased nutrient needs related to increased metabolic demands as evidenced by liver cirrhosis. 2. Inadequate enteral infusion related to current enteral infusion rate as evidenced by meeting < 80% of estimated needs. Intervention/RDN Recommendation(s): 1. Recommend increase enteral feeding rate goal to 50 mL/hr. Continue on Jevity 1.2 at 30 mL/hr, increasing until goal rate of 50 mL/hr is reached. At goal rate of 50 mL/hr TF will provide 1200 mL total volume, 1440 kcal, 66 gm protein to meet 85% estimated kcal and 98% estimated protein needs. Monitor/Evaluate Goal: Intake via nutrition support to meet at least 80% of estimated needs with acceptable tolerance within 2-3 days. Monitor: nutrition support tolerance, Labs, GI function, Skin integrity, Weights. F/U in 2-3 days as high risk (04/08-).
--- NOTE | 2019-04-06 11:41 | NUR ---
I HAVE REVIEWED THE DATA COLLECTION BY RN (NAME):KADE CHAN RN ENTERED ON (DATE/TIME):04/06/19 @ 1141 I CONCUR WITH THE DATA AND ANY EXCEPTIONS OR COMMENTS ARE LISTED BELOW:
--- NOTE | 2019-04-06 13:00 | NUR ---
INFORMED JAGJIT DOCKERY ABOUT THE SUGGESTION OF NUTRITION TO INCREASE PEG TUBE FEEDING TO GOAL OF 50 ML/HR.ORDER RECEIVED.INCREASED FEEDING TO 10 ML/HR AND WILL INCREASE AGAIN AT 1800 TO 10 ML/HR TO REACH THE GOAL OF 50 ML/HR.
--- NOTE | 2019-04-06 14:00 | NUR ---
DIETITIAN CONSULT, NEW ORDER TO INCREASE FEEDING JEVITIY 1.2 RATE TO 50 ML/HR, CHARGE NURSE AWARE, FAMILY AT BEDSIDE AWARE, HOSPITAL PROTOCOL FOLLOWED, CONTINUE TO MONITOR
[2019-04-06 17:51] VITALS: BP 129/75
--- NOTE | 2019-04-06 17:59 | NUR ---
PT IN BED, AWAKE AND QUIET, NON-VERBAL, NOT FOLLOW COMMAND, ON 1:1 SITTER FOR SOFT-RESTRAINT TO UE, RESP EVEN AND NONLABORED, NO APPEARANCE OF DISRESS/PAIN, TELE #17, NSR, SKIN D/W/C, PALP PULSE TO ALL EXTREMITIES, ABD SOFT AND NON TENDER, PEG TUBE, JEVITY 1.2 AT RATE 50ML/HR, TOLERATED WELL, NO RESIDUAL, ACTIVE BS X 4, ASPIRATION PRECAUTION FOLLOWED, HOB AT 30 DEGREE, BED IN LOW POSITION, CALL LIGHT IN TOUCH, CONTINUE TO ENDORSE TO NIGHT RN
--- NOTE | 2019-04-06 19:54 | NUR ---
PT. AWAKE, ALERT, UNABLE TO ASSESS ORIENTATION. HX OF STROKE AND LT. CRANIOTOMY. UNABLE TO FOLLOW COMMANDS. SOME WORDS SPOKEN AT TIMES, BUT UNABLE TO COMRPEHEND THEM. SUSANA SOFT RESTRAINTS, MUFFINS, NOTED. SITTER AT BEDSIDE. PT. QUIET AT THIS TIME. BREATH SOUNDS CLEAR THROUGHOUT LUNG MIMS, RESP. EVEN, UNLABORED. BLL DIMINISHED. REP. EVEN, UNLABORED. NO SOB NOTED. PT. ON RA. ABD. SOFT AND ROUND, BOWEL SOUNDS ACTIVE. PEG TUBE IN-SITUJEVITY TF INFUSING AT 50CC/HR, LESS THAN 10CC RESIDUAL NOTED AND RETURNED. IVF NS AT 100CC/HR TO LFA, SITE INTACT. SCATTERED ECCYMOSIS TO BUE. PT. NOTED TO BE INCONTINENT. HOB ELEVATED 30 DEGREES.
[2019-04-06 22:06] VITALS: BP 102/56
--- NOTE | 2019-04-07 02:26 | NUR ---
PT. RESTING QUIETLY AT THIS TIME. DOZING INTERMITTENTLY. PT. BEING REPOSITIONED AND MADE COMFORTABLE PER PROTOCOL. SITTER REMAINS AT BEDSIDE. TOLREATING TUBE FEEDING, NO RESIDUAL NOTED. WILL CONTINUE TO MONITOR.
[2019-04-07 06:32] LABS: CALCIUM 8.7 mg/dL (8.5-10.1); CARBON DIOXIDE 26.2 mmol/L (21-32); CHLORIDE SERUM 112 mmol/L (98-107); CREATININE SERUM 0.4 mg/dL (0.7-1.3); GFR1 > 60 mL/min; GLUCOSE SERUM 93 mg/dL (74-106); POTASSIUM SERUM 3.4 mmol/L (3.5-5.1); SODIUM SERUM 143 mmol/L (136-145)
[2019-04-07 06:48] VITALS: BP 105/89
--- NOTE | 2019-04-07 07:10 | NUR ---
SEEN RESTING IN BED WITH EYES CLOSED, EASILY TO AROUSE, HAS EYES CONTACT, NON VERBAL RESPONDED. DIMINISHED LUNG SOUND. G TUBE FEEDING WITH JEVITY AT 50ML/HR AND FWF AT 150ML/Q 4HRS. RESIDUAL CHECKED <50ML, REPLACED. ABD SOFT AND FLAT. INCONTINENCE. RIGHT WRIST SOFT WRIST RESTRAINT INPLACED, LEFT SIDE NOTED WEAKNESS. LEFT HAND NOTED SWELLING, ELEVATED ON PILLOW. IVF NS TO LFA INFUSING WELL. TOTAL CARE. WILL CONTINUE TO TURN&REPOSITION Q 2HRS+PRN. ON AIRLOSS MATTRESS. CALL LIGHT PLACED WITHIN EASY REACH, SIDERAILS UP X2.
--- NOTE | 2019-04-07 07:32 | NUR ---
PT. REMAINS WITH SITTER AT BEDSIDE. SUSANA SOFT WRIST RESTRAINTS IN-SITU. IVF INFUSING WELL, SITE INTACT. PEG TUBE INTACT. PT. TOLERATED TF, NO RESIDUAL NOTED THIS MORNING. HEAD OF BED 30 DEGREES. PT. ENDORSED OVER TO INCOMING NURSE.
[2019-04-07 09:03] VITALS: BP 100/57
--- NOTE | 2019-04-07 10:00 | NUR ---
AM MEDS GIVEN VIA G TUBE. CONTINUES JEVITY FEEDING AT 50ML/HR WITH FWF AT 150ML/Q 4HRS.
[2019-04-07 10:08] LABS: PLATELET COUNT 79 x10^3mcL (130-400); RED CELL DISTRIBUTION WIDTH 16.4 % (11.5-14.5)
[2019-04-07 11:26] LABS: ATYPICAL LYMPH 0 %; BAND NEUTROPHIL 0 % (0-10); BASOPHIL 0 % (0-2); MONOCYTE 14 % (0-7); SEGMENTED NEUTROPHILS 46 % (37-75); rbc morphology (normal/abnorm) ABNORMAL (NORMAL)
[2019-04-07 11:27] LABS: PLATELET MORPHOLOGY PLATELETS DECREASED
--- NOTE | 2019-04-07 12:00 | NUR ---
RIGHT WRIST SOFT WRIST RESTRAINT REMOVED. RIGHT HAND MITTEN INPLACE. PATIENT AWAKE, NON VERBAL. NOTED ATTEMPTED TO REMOVE MITTEN BY USING HIS MOUTH. NOTED LEFT ARM WEAKNESS. IVF NS AT 100ML/HR INFUSING WELL. G TUBE FEEDING WITH JEVITY 1.2 RESIDAUL CHECKED <10ML, REPLCED.
[2019-04-07 16:59] VITALS: BP 90/53
--- NOTE | 2019-04-07 17:20 | NUR ---
SEEN AWAKE, COMBATIVE, ATTEMPTING TO KICK AND PUNCH SITTER AT BEDSIDE. MORPHINE 2MG IVP GIVEN AT THIS TIME. NO ANY DISTRESS NOTED.
--- NOTE | 2019-04-07 17:40 | NUR ---
RESTING WITH EYES CLOSED LAYING ON RIGHT SIDE. BREATHING E/U ON ROOM AIR.
--- NOTE | 2019-04-07 17:59 | NUR ---
NO CHANGES IN CONDITION. RIGHT HAND MITTEN INPLACE. SITTER 1:1 AT BEDSIDE AT ALL TIMES. INCONTINENCE URINE/BOWEL, PERICARE PROVIDED BY SITTER AND GASOLINE SERVICE ATTENDANT. SCHEDULED MEDS GIVEN. IVF NS TO LFA INFUSING WELL.
--- NOTE | 2019-04-07 20:00 | NUR ---
RECEIVED PT IN BED AWAKE, BUT DROWSY. FAMILY AT BEDSIDE. LUNG SOUNDS CLEAR. BREATHING EASILY ON ROOM AIR. NO TELE NEEDED. BS ACTIVE IN ALL FOUR QUADS. PEG TUBE TO ABD, CDI. INFUSING TF JEVITY AT GOAL RATE OF 50ML/HR WITH FWF OF 150/Q4H. NO RESIDUAL NOTED. ABD IS NON DISTENDED. PT IS INCONTINENT OF URINE. CHANGED PT AT THIS TIME, LARGE AMOUNT OF URINE NOTED. REPOSITIONED PT AT THIS TIME. IVF INFUSING NS AT 1OOML/HR TO LFA. RFA WITH SKIN TEAR. ECCHYMOSIS NOTED TO BUE. LEFT HAND TRACE EDEMA, ELEVATED WITH PILLOW. LEFT SIDE WEAKNESS NOTED. RIGHT HAND WITH MITTEN DUE TO PT TRYING TO PULL AT LINES AND TUBES. SHIFT ASSESSMENT COMPLETED. CALL LIGHT WITHIN REACH. BED IS IN LOWEST POSITION. WILL CONTINUE TO MONITOR CLOSELY.
[2019-04-07 22:00] VITALS: BP 87/48
--- NOTE | 2019-04-08 01:00 | NUR ---
PT APPEARS TO BE SLEEPING IN NO DISTRESS. TF ONGOING WITH NO RESIDUAL NOTED. IVF ONGOING AT 100ML/HR. REPOSITIONED AT THIS TIME. ROOM IS CLOSE TO NURSING STATION FOR CLOSE MONITORING. ALL NEEDS TENDED TO. WILL CONTINUE TO MONITOR CLOSELY.
[2019-04-08 06:29] VITALS: BP 103/61
[2019-04-08 06:34] LABS: CALCIUM 7.9 mg/dL (8.5-10.1); CARBON DIOXIDE 27.4 mmol/L (21-32); CHLORIDE SERUM 116 mmol/L (98-107); CREATININE SERUM 0.4 mg/dL (0.7-1.3); GFR1 > 60 mL/min; GLUCOSE SERUM 100 mg/dL (74-106); POTASSIUM SERUM 3.6 mmol/L (3.5-5.1); SODIUM SERUM 146 mmol/L (136-145)
[2019-04-08 07:04] LABS: PLATELET COUNT 66 x10^3mcL (130-400); RED CELL DISTRIBUTION WIDTH 17.1 % (11.5-14.5)
--- NOTE | 2019-04-08 07:20 | NUR ---
SEEN IN BED AWAKE, NON VERBAL, HAS EYES CONTACT, NO SOB NOTED ON ROOM AIR, RIGHT HAND MITTEN INPLACE DUE TO PATIENT ATTEMPTING TO PULL OUR LINES/TUBE. LEFT SIDE WEAKNESS, TRACE EDEMA TO LT HAND, KEPT ELEVATED ON PILLOW. G TUBE FEEDING WITH JEVITY AT 50ML/HR WITH FWF 150ML/Q4HRS NO RESIDUAL NOTED, ABD SOFT AND FLAT. INCONTINENCE. IVF NS INFUSING AT 100ML/HR TO LFA IV SITE, NO ERYTHEMA TO SWELLING TO SITE. SITTER 1:1 AT BEDSIDE. SEIZURE PRECAUTION MAINTAINED, SIDERAILS WITH PADS UP X2. WILL CONTINUE TO MONITOR.
[2019-04-08 08:26] VITALS: BP 104/71
--- NOTE | 2019-04-08 10:00 | NUR ---
PATIENT'S SISTER AT BEDSIDE, UPDATED CURRENT CONDITION AND PLAN OF CARE.
[2019-04-08 11:59] LABS: BAND NEUTROPHIL 1 % (0-10); MONOCYTE 3 % (0-7); PLATELET MORPHOLOGY PLATELETS DECREASED; SEGMENTED NEUTROPHILS 9 % (37-75)
[2019-04-08 12:00] LABS: rbc morphology (normal/abnorm) ABNORMAL (NORMAL)
--- NOTE | 2019-04-08 17:30 | NUR ---
NO CHANGES IN CONDITION. NON VERBAL, HAS EYES CONTACT, TOLERATING TO JEVITY G TUBE FEEDING WELL, ABD SOFT AND FLAT, ACTIVE BS, IVF NS CONTINUED AT 100ML/HR, RIGHT HAND MITTEN INPLACE DUE TO TRYING TO PULL OUT TUBES/LINES. PARTIAL BED BATH DONE BY BLIND TEACHER, LAKSHMI CARE PROVIDED AT TIMES DUE TO INCONTINENCE. TURNED&REPOSITIONED Q 2HRS, KEPT HOB ELEVATED AT 30DEG. IV TO LFA NS INFUSING WELL AT 100ML/HR. SITTER 1:1 AT BEDSIDE AT ALL TIMES.
--- NOTE | 2019-04-08 18:13 | NUR ---
SEEN AWAKE COMBATIVE TRYING TO USE RIGHT LEG KICKING SITTER, NO ANY DISTRESS NOTED, ORIENTED TO SITUATION AND PLACE, PATIENT KEPT SAYING "NOOOO" NORCO 1 TAB CURSHED GIVEN VIA G TUBE.
[2019-04-08 19:54] VITALS: BP 116/67
--- NOTE | 2019-04-08 19:57 | NUR ---
RECEIVED PT FROM PREVIOUS SHIFT. NONVERBAL, UNABLE TO MAKE NEEDS KNOWN, ONLY STATES "NO!!", PT EASILY AGITATED AND OCCASIONALLY KICKS AND SWINGS ARMS AT STAFF. NO S/S ACUTE DISTRESS. NO INDICATIONS OF PAIN. BREATHING E/U. PEG-TUBE NOTED WITH JEVITY INFUSING AT GOAL RATE OF 50ML/HR, PT TOLERATING WELL. CALL LIGHT WITHIN REACH. CABINET INSTALLER AT BEDSIDE TO ASSIST WITH ADLS. SAFETY MEASURES IN PLACE. WILL CONTINUE TO MONITOR.
--- NOTE | 2019-04-08 22:45 | NUR ---
PT CLEANED OF URINE INCONTINENCE. PT TOLERATED WELL. WILL CONTINUE TO MONITOR.
--- NOTE | 2019-04-09 01:00 | NUR ---
PT VERY AGITATED. ATTEMPTING TO HIT AND SPIT AT EDISCOVERY PROJECT MANAGER. ATTEMPTS TO CALM PT DOWN UNSUCESSFUL, PT CONTINUES TO TRY TO HIT STAFF. DR. STEEL MADE AWARE.
--- NOTE | 2019-04-09 02:26 | NUR ---
PT CLEANED OF URINE INCONTINENCE. ALL LINENS AND GOWN CHANGED. PT TOLERATED WELL. IV TO LFA FOUND PULLED OUT, WILL REINSERT NEW IV.
[2019-04-09 03:54] VITALS: BP 110/75
--- NOTE | 2019-04-09 05:09 | NUR ---
JEVITY FEEDING AND TUBING CHANGED. PEG-TUBE STILL INTACT. PT TOLERATING WELL.
--- NOTE | 2019-04-09 06:18 | NUR ---
IV TO LFA REMOVED CATHETER INTACT.NEW IV INSERTED INTO R HAND, #22 GAUGE WITH GOOD BLOOD RETURN. PATENT.
[2019-04-09 06:53] LABS: CALCIUM 8.4 mg/dL (8.5-10.1); CARBON DIOXIDE 29.1 mmol/L (21-32); CHLORIDE SERUM 112 mmol/L (98-107); CREATININE SERUM 0.3 mg/dL (0.7-1.3); GFR1 > 60 mL/min; GLUCOSE SERUM 83 mg/dL (74-106); POTASSIUM SERUM 3.4 mmol/L (3.5-5.1); SODIUM SERUM 146 mmol/L (136-145)
--- NOTE | 2019-04-09 07:16 | NUR ---
BEDSIDE REPORT GIVEN TO ELPIDIO TUBBS. ALL QUESTIONS AND CONCERNS ADDRESSED.
--- NOTE | 2019-04-09 07:23 | NUR ---
RECEIVED PT FROM SHIFT NURSE ASLEEP BUT AROUSABLE. NO ACUTE DISTRESS NOTED. IV INTACT AND PATENT. PEG TUBE IN PLACE WITH ABD BINDER. BED IN LOW POSITION. CALL LIGHT WITHIN REACH. WILL CONTINUE TO MONITOR.
[2019-04-09 07:30] LABS: PLATELET COUNT 73 x10^3mcL (130-400); RED CELL DISTRIBUTION WIDTH 16.2 % (11.5-14.5)
[2019-04-09 09:47] VITALS: BP 109/70
--- NOTE | 2019-04-09 10:18 | NUR ---
PT AWAKE AND NO ACUTE DISTRESS NOTED. UNDER CLOSE OBSERVATION. BED IN LOW POSITION. CALL LIGHT WITHIN REACH. WILL CONTINUE TO MONITOR.
[2019-04-09 12:22] LABS: BAND NEUTROPHIL 2 % (0-10); MONOCYTE 10 % (0-7); SEGMENTED NEUTROPHILS 70 % (37-75); rbc morphology (normal/abnorm) ABNORMAL (NORMAL)
[2019-04-09 12:23] LABS: PLATELET MORPHOLOGY PLATELETS DECREASED
--- NOTE | 2019-04-09 13:08 | NUR ---
PT ASLEEP BUT AROUSABLE. NO ACUTE DISTRESS NOTED. BED IN LOW POSITION. CALL LIGHT WITHIN REACH. WILL CONTINUE TO MONITOR.
--- NOTE | 2019-04-09 14:02 | NUR ---
PT REMAINS ASLEEP BUT AROUSABLE. NO ACUTE DISTRESS NOTED. CALL LIGHT WITHIN REACH. WILL CONTINUE TO MONITOR.
--- NOTE | 2019-04-09 15:15 | NUR ---
1. Recommend continuing Jevity 1.2@ 50ml/hr. This will provide 1440 kcal, 66g protein to meet 85% estimated calorie and 98% estimated protein needs.
--- NOTE | 2019-04-09 15:15 | NUR ---
Follow-up Nutrition Assessment: 248/A SHELLY MOSER FU HR Dx: ALOC, Hepatic encephalopathy PMHx: liver cirrhosis w/hepatic encephalopathy, polysubstance abuse, TIPS procedure with Portal Vein Occlusion and hemorrhagic stroke Labs: (04/09) NA 146H, K 3.4L, BUN 4.0L, CREAT 0.3L, WBC 2.1L Meds: Cephulac, Colace, zofran Diet: TF Jevity 1.2 @ 15ml/hr, goal 30ml/hr, FWF 150cc Q4H PO Intake: 600 ml Weights: (04/04) 56 kg, (04/03) 56.2 kg Skin: RFA skin tear, Ecchymosis on BUE Balwinder: 17 I/Os: 2100/ not documented Edema: LUE GI: Incontinent of stool, PEG tube Last BM: 04/06/19 RDN Visit (04/09): Pt was receiving tube feeding via a bag that was not labelled. Informed RN Sameer and cupola charger insulation Barbara. She said that the formula is Jevity 1.2 and she will tell the RN to label it soon. TF was running at 50 ml/hr. Pt was sleeping with a sitter at bedside. Estimated Nutritional Needs Based on actual body weight 56.2 kg Energy: 1213-4710 kcal/d (30-35 kcal/kg)- liver cirrhosis Protein: 56.2- 67 g/d (1.0-1.2 g/kg)- cirrhosis Fluid: 4997-5043 ml/d (1 ml/kcal) or per doctor Nutrition Diagnosis 1. Inadequate enteral nutrition infusion related to current TF rate as evidenced by meeting < 80% estimated nutrient needs. (improved) 2. Increased nutrient needs related to increased metabolic demands as evidenced by liver cirrhosis. (ongoing) Intervention 1. Recommend continuing Jevity 1.2@ 50ml/hr. This will provide 1440 kcal, 66g protein to meet 85% estimated calorie and 98% estimated protein needs. Monitor/Evaluate Goal: Have pt meet at least 75% of estimated needs Monitor: TF intake/ tolerance, Labs, GI function F/U in 2-3 days as high risk 04/11-
[2019-04-09 17:42] VITALS: BP 94/55
[2019-04-09 17:44] VITALS: BP 159/96
--- NOTE | 2019-04-09 18:12 | NUR ---
PT RESTING IN BED IN NO ACUTE DISTRESS. RESP EVEN AND UNLABORED ON RA. PT ON TUBE FEEDING AND TOLERATING WELL. IV INTACT AND PATENT. FALL PRECAUTIONS IN PLACE. BED IN LOW POSITION. CALL LIGHT WITHIN REACH. WILL BE ENDORSED.
--- NOTE | 2019-04-09 20:00 | NUR ---
PT RESTING WITH EYES CLOSED. EASILY AROUSABLE WITH TACTILE STIMULI. DOES NOT FOLLOW COMMANDS AND DOES NOT MAKE NEEDS KNOWN. BREATH SOUNDS CLEAR. BREATHING EVEN AND UNLABORED ON ROOM AIR. BOWEL SOUNDS ACTIVE. PEG TUBE NOTED ON ABDOMEN WITH ABDOMINAL BINDER. PT WITH TUBE FEEDING JEVITY NOTED INFUSING AT 50 ML/HR WITH FLUSH OF WATER AT 150 ML EVERY 6 HOURS. NO RESIDUAL OUTPUT NOTED. PITTING EDEMA NOTED ON LUE. WOUND WITH DRESSING NOTED ON THE RUE. IV INTACT ON THE RIGHT HAND INFUSING WITH NS AT 100 ML/HR. MADE PT COMFORTABLE ON AIR MATTRESS. PLACED CALL LIGHT WITH IN REACH. SEIZURE PRECAUTION OBSERVED. WILL CONTINUE TO MONITOR.
--- NOTE | 2019-04-10 00:54 | NUR ---
PT AWAKE TRYING TO BITE THE IV OF. MITTENS PLACED ON THE PATIENTS RIGHT HAND TO PROTECT IV SITE. 75 ML OF RESIDUAL OUTPUT NOTED AND REPLACED. WILL CONTINUE TO MONITOR.
--- NOTE | 2019-04-10 06:35 | NUR ---
PT RESTING WITH EYES CLOSED. IV INTACT AND INFUSING ORDERED. G TUBE IN PLACE AND INFUSING ORDERED. NO RESIDUAL OUTPUT NOTED. MADE PT COMFORTABLE. WILL ENDORSE TO THE AM NURSE ACCORDINGLY.
[2019-04-10 06:42] LABS: CALCIUM 8.2 mg/dL (8.5-10.1); CARBON DIOXIDE 30.5 mmol/L (21-32); CHLORIDE SERUM 112 mmol/L (98-107); CREATININE SERUM 0.4 mg/dL (0.7-1.3); GFR1 > 60 mL/min; GLUCOSE SERUM 91 mg/dL (74-106); POTASSIUM SERUM 3.8 mmol/L (3.5-5.1); SODIUM SERUM 145 mmol/L (136-145)
[2019-04-10 06:43] VITALS: BP 112/70
--- NOTE | 2019-04-10 07:18 | NUR ---
RECEIVED PT FROM SHIFT NURSE ASLEEP BUT AROUSABLE. NO ACUTE DISTRESS NOTED. PT ON TUBE FEEDING AND TOLERATING WELL. IV INTACT AND PATENT. FALL PRECAUTIONS IN PLACE. BED IN LOW POSITION. CALL LIGHT WITHIN REACH. WILL CONTINUE TO MONITOR.
[2019-04-10 07:49] VITALS: BP 105/65
[2019-04-10 08:05] LABS: PLATELET COUNT 76 x10^3mcL (130-400); RED CELL DISTRIBUTION WIDTH 16.5 % (11.5-14.5)
--- NOTE | 2019-04-10 10:48 | NUR ---
PT AWAKE AND IN NO ACUTE DISTRESS. TOLERATING GT TUBE FEEDING WELL. BED IN LOW POSITION. WILL CONTINUE TO MONITOR.
--- NOTE | 2019-04-10 11:30 | NUR ---
PT BIT THROUGH IV TUBING. IV TUBING REPLACED. WILL CONTINUE TO MONITOR.
--- NOTE | 2019-04-10 13:37 | NUR ---
PT PULLED OUT IV. REINSERTED NEW IV TO LFA 22G. IV INTACT AND INFUSIGN WELL. WILL CONTINUE TO MONITOR.
[2019-04-10 13:55] LABS: BAND NEUTROPHIL 3 % (0-10); BASOPHIL 1 % (0-2); SEGMENTED NEUTROPHILS 56 % (37-75)
[2019-04-10 13:57] LABS: MONOCYTE 13 % (0-7)
[2019-04-10 13:58] LABS: PLATELET MORPHOLOGY PLATELETS DECREASED; rbc morphology (normal/abnorm) ABNORMAL (NORMAL)
--- NOTE | 2019-04-10 15:07 | NUR ---
PT ASLEEP BUT AROUSABLE. NO ACUTE DISTRESS NOTED. IV INTACT AND PATENT. WILL CONTINUE TO MONITOR.
--- NOTE | 2019-04-10 18:14 | NUR ---
PT AWAKE RESTING IN BED. NO ACUTE DISTRESS NOTED. IV INTACT AND PATENT. TOLERATING G TUBE FEEDING WELL. BED IN LOW POSITION. WILL BE ENDORSED.
[2019-04-10 18:20] VITALS: BP 92/54
--- NOTE | 2019-04-10 20:00 | NUR ---
PT RESTING WITH EYES CLOSED. EASILY AROUSABLE WITH TACTILE STIMULI. PT DOES NOT FOLLOW COMMANDS AND DOES NOT MAKE NEEDS KNOWN. BREATH SOUNDS CLEAR. BREATHING EVEN AND UNLABORED ON ROOM AIR. BOWEL SOUNDS ACTIVE. PEG TUBE NOTED ON ABDOMEN WITH JEVITY TUBE FEEDING INFUSING AT 50 ML/HR WITH 150 FLUSH OF WATER EVERY 4 HOURS. NO RESIDUAL OUTPUT NOTED. IV INTACT ON THE LEFT FOREARM INFUSING WITH NS AT 100 ML/HR. PITTING EDEMA NOTED ON LUE. WOUND WITH DRESSING NOTED ON RFA C/D/I. MADE PT COMFORTABLE. ON AIR MATTERESS. SEIZURE PRECAUTION OBSERVED. PLACED CALL LIGHT WITH IN REACH. WILL CONTINUE TO MONITOR.
[2019-04-10 20:12] VITALS: BP 121/76
--- NOTE | 2019-04-11 00:56 | NUR ---
PT AWAKE. TRYING TO PULL PEG TUBE AND IV. NO RESIDUAL OUTPUT NOTED ON TUBE FEEDING. IV INTACT AND INFUSING ORDERED. MADE PT COMFORTABLE. WILL CONTINUE TO MONITOR.
[2019-04-11 05:45] VITALS: BP 117/78
[2019-04-11 06:33] LABS: CALCIUM 8.8 mg/dL (8.5-10.1); CARBON DIOXIDE 24.5 mmol/L (21-32); CHLORIDE SERUM 112 mmol/L (98-107); CREATININE SERUM 0.4 mg/dL (0.7-1.3); GFR1 > 60 mL/min; GLUCOSE SERUM 95 mg/dL (74-106); POTASSIUM SERUM 3.9 mmol/L (3.5-5.1); SODIUM SERUM 146 mmol/L (136-145)
--- NOTE | 2019-04-11 06:35 | NUR ---
PT RESTING WITH EYES CLOSED. EASILY AROUSABLE WITH VERBAL STIMULI. NO SIGNIFICANT CHANGES NOTED. NO RESIDUAL OUTPUT NOTED ON TUBE FEEDING. MADE PT COMFORTABLE. WILL ENDORSE TO THE AM NURSE ACCORDINGLY.
[2019-04-11 06:38] LABS: PLATELET COUNT 84 x10^3mcL (130-400); RED CELL DISTRIBUTION WIDTH 16.2 % (11.5-14.5)
--- NOTE | 2019-04-11 07:05 | NUR ---
RECEIVED PT FROM STUDY LEAD NURSE. PT IN BED SLEEPING, AROUSABLE, RESP E/U ON RA. NO ACUTE DISTRESS NOTED. IV TO LFA W/ NO SIGNS OF INFILTRATION, IVF INFUSING WELL. PEG TUBE TO ABD SECURED W/ ABD BINDER, RECEIVING JEVITY AT 50 ML/HR INFUSING WELL. BED IN LOWEST POSITION AND CALL LIGHT WITHIN REACH. WILL CONTINUE TO MONITOR.
[2019-04-11 07:21] VITALS: BP 137/91
--- NOTE | 2019-04-11 10:55 | NUR ---
TUBE FEEDING REPLACED AT THIS TIME. 15CC OF GASTRIC RESIDUAL NOTED. JEVITY 1.2 AT 50 ML/HR STARTED, INFUSING WELL. WILL CONTINUE TO MONITOR.
[2019-04-11 11:41] VITALS: BP 126/80
[2019-04-11 12:00] LABS: BAND NEUTROPHIL 0 % (0-10); BASOPHIL 0 % (0-2); MONOCYTE 12 % (0-7); PLATELET MORPHOLOGY PLATELETS DECREASED; SEGMENTED NEUTROPHILS 55 % (37-75)
[2019-04-11 12:01] LABS: rbc morphology (normal/abnorm) ABNORMAL (NORMAL)
--- NOTE | 2019-04-11 13:38 | NUR ---
Follow-up Nutrition Assessment: 248/A SHELLY MOSER FU HR Dx: ALOC, Hepatic encephalopathy PMHx: liver cirrhosis w/hepatic encephalopathy, polysubstance abuse, TIPS procedure with Portal Vein Occlusion and hemorrhagic stroke Labs: (04/11) NA 146H, BUN 6.0L, CREAT 0.4L, WBC 2.7L, Ammonia 109H Meds: Colace, zofran Diet: (PEG) TF Jevity 1.2 @ 15ml/hr, goal 50ml/hr, FWF 150cc Q4H PO Intake: 600 ml Weights: (04/04) 56 kg, (04/03) 56.2 kg Skin: wound w/dressing noted on RFA Balwinder: 15 I/Os: 5800/ 1500 Edema: pitting edema to LUE GI: Incontinent of stool, PEG tube Last BM: 04/06/19 RDN Visit (04/11): Patient was sleeping and had sitter Theresa at bedside. Jevity 1.2 was running @ 50 ml/hr. FWF 150 ml Q4H. Per RN Alex, patient is tolerating tube feeding with residuals 15ml. Per progress note (04/11), plan is to continue lactulose and to monitor ammonia level. Estimated Nutritional Needs Based on actual body weight 56.2 kg Energy: 0355-1434 kcal/d (30-35 kcal/kg)- liver cirrhosis Protein: 56.2- 67 g/d (1.0-1.2 g/kg)- cirrhosis Fluid: 5300-3324 ml/d (1 ml/kcal) or per doctor Nutrition Diagnosis 1. Inadequate enteral nutrition infusion related to current TF rate as evidenced by meeting < 80% estimated nutrient needs. (improved) 2. Increased nutrient needs related to increased metabolic demands as evidenced by liver cirrhosis. (ongoing) Intervention 1. Recommend continuing Jevity 1.2@ 50ml/hr. This will provide 1440 kcal, 66g protein to meet 85% estimated calorie and 98% estimated protein needs. Monitor/Evaluate Goal: Have pt meet at least 75% of estimated needs Monitor: TF intake/ tolerance, Labs, GI function F/U in 2-3 days as high risk 04/13-
--- NOTE | 2019-04-11 13:39 | NUR ---
1. Recommend continuing Jevity 1.2@ 50ml/hr. This will provide 1440 kcal, 66g protein to meet 85% estimated calorie and 98% estimated protein needs.
[2019-04-11 16:31] VITALS: BP 120/76
--- NOTE | 2019-04-11 19:26 | NUR ---
PT IN BED SLEEPING, AROUSABLE, RESP E/U ON RA. NO ACTUE DISTRESS NOTED. TUBE FEEDING INFUSING WELL AT 50ML/HR, SECURED W/ ABD BINDER. BED IN LOWEST POSITION AND CALL LIGHT WITHIN REACH. SITTER AT BEDSIDE. WILL ENDORSE TO ONCOMING NURSE.
--- NOTE | 2019-04-11 19:56 | NUR ---
RECEIVED PT IN BED VERY DROWSY BUT EASLY AROUSABLE , LUNG SOUNDS CTA , ABD SOFT BS ACTIVE X4 [PT HAS PEG FEEDIGN JEVITY AT 50ML/HR AND H20 FLUSH 150ML Q4HRS OVER 100ML RESIDUAL NOTED, OFF FEEDING AT THE MOMENT . WILL CON'T TO MONITOR PT CLOSELY , HOB ELEVATED . PIV INTACT INFUSING WELL , PT'S INCONTINENT OF BOWEL /BLADDER WILL KEEP PT CLEAN AND DRY AT ALL THE TIME .
[2019-04-11 20:09] VITALS: BP 99/51
--- NOTE | 2019-04-12 02:35 | NUR ---
PT'S IN BED AWAKE RESP EVEN , GT PATENT INFUSING WELL , NO RESIDUAL NOTED, PIV INTACT INFUSING WELL .
--- NOTE | 2019-04-12 04:21 | NUR ---
PT'S VERY AGITATED MEDICATED WITH ATIVAN 2MG VIA GT , NOTED IV SITE BLEEDING 22G INSERTED TO LFA. PT TOLERATED WELL .GT PATENT NO RESIDUAL NOTED.
--- NOTE | 2019-04-12 05:12 | NUR ---
POST ATIVAN PT'S CALM .
--- NOTE | 2019-04-12 05:14 | NUR ---
I HAVE REVIEWED THE DATA COLLECTION BY EXPERIMENTAL ASSEMBLER (NAME):MIGUEL BURKS ENTERED ON (DATE/TIME): I CONCUR WITH THE DATA AND ANY EXCEPTIONS OR COMMENTS ARE LISTED BELOW:
[2019-04-12 05:38] VITALS: BP 116/64
--- NOTE | 2019-04-12 06:28 | NUR ---
PT'S CALM NO ACUTE DISTRESS NOTED, ALL DUE MEDS GIVEN NO REACTION NOTED, PIV INTACT INFUSING WELL, GT INTACT NO RESIDUAL NOTED , TURNED PT Q2HRS FOR COMFORT , KEPT PT CLEAN AND DRY AT ALL THE TIME .
[2019-04-12 06:58] LABS: CALCIUM 8.1 mg/dL (8.5-10.1); CARBON DIOXIDE 26.9 mmol/L (21-32); CHLORIDE SERUM 113 mmol/L (98-107); CREATININE SERUM 0.4 mg/dL (0.7-1.3); GFR1 > 60 mL/min; GLUCOSE SERUM 84 mg/dL (74-106); POTASSIUM SERUM 3.4 mmol/L (3.5-5.1); SODIUM SERUM 144 mmol/L (136-145)
--- NOTE | 2019-04-12 07:00 | NUR ---
RECEIVED PT FROM PAINTER ROUGH NURSE. PT IN BED SLEEPING, AROUSABLE, RESP E/U ON RA. NO ACUTE DISTRESS NOTED. IV TO LFA W/ NO SIGNS OF INFILTRATIONJ, IVF INFUSING WELL. G-TUBE IN PLACE SECURED W/ ABD BINDER, RECIEVING JEVITY 1.2 AT 50 ML/HR INFUSING WELL. BED IN LOWEST POSITION AND CALL LIGHT WITHIN REACH. SITTER AT BEDSIDE. WILL CONTINUE TO MONITOR.
[2019-04-12 07:44] LABS: PLATELET COUNT 77 x10^3mcL (130-400)
[2019-04-12 08:53] VITALS: BP 98/57
--- NOTE | 2019-04-12 11:05 | NUR ---
TUBE FEEDING REPLACED. NO GASTRIC ASPIRATE NOTED. JEVITY 1.2 RUNNING AT 50 ML/HR INFUSING WELL. WILL CONTINUE TO MONITOR.
[2019-04-12 14:07] LABS: BAND NEUTROPHIL 3 % (0-10); BASOPHIL 1 % (0-2); MONOCYTE 13 % (0-7); SEGMENTED NEUTROPHILS 57 % (37-75)
[2019-04-12 14:08] LABS: PLATELET MORPHOLOGY PLATELETS DECREASED; rbc morphology (normal/abnorm) ABNORMAL (NORMAL)
--- NOTE | 2019-04-12 17:35 | NUR ---
PT RESTING IN BED, AWAKE BUT APPEARED LETHARGIC. CALM AND COMPLIANT W/ CARE AT THIS TIME. IV TO LFA W NO SIGNS OF INFILTRATION, IVF INFUSING WELL. G-TUBE PATENT AND INTACT SECURED W/ ABD BINDER. JEVITY 1.2 INFUSING WELL AT 50ML/HR. BED IN LOWEST POSITION AND CALL LIGHT WITHIN REACH. SITTER AT BEDSIDE. WILL CONTINUE TO MONITOR.
[2019-04-12 19:34] VITALS: BP 107/56
--- NOTE | 2019-04-12 19:34 | NUR ---
RECEIVED PT FROM PREVIOUS SHIFT. PT AWAKE/DISORIENTED. NO S/S OF PAIN. NO S/S OF SOB ON RA. IV TO LFA PATENT AND INFUSING WELL WITH NO S/S OF INFILTRATION. CALL LIGHT WITHIN REACH, BED IN LOW POSITION. WILL CONTINUE TO MONITOR.
[2019-04-13] VITALS (7 sets, daily range): BP systolic 90–146; BP diastolic 41–101
--- NOTE | 2019-04-13 00:31 | NUR ---
PT RESTING IN NO ACUTE DISTRESS. RR EVEN AND UNLABORED. CALL LIGHT WITHIN REACH, BED IN LOW POSITION. WILL CONTINUE TO MONITOR.
[2019-04-13 06:40] LABS: CALCIUM 8.3 mg/dL (8.5-10.1); CARBON DIOXIDE 28.2 mmol/L (21-32); CHLORIDE SERUM 110 mmol/L (98-107); CREATININE SERUM 0.4 mg/dL (0.7-1.3); GFR1 > 60 mL/min; GLUCOSE SERUM 85 mg/dL (74-106); POTASSIUM SERUM 3.4 mmol/L (3.5-5.1); SODIUM SERUM 142 mmol/L (136-145)
--- NOTE | 2019-04-13 07:00 | NUR ---
RECEIVED PT FROM SUPERVISOR BORDER DEPARTMENT NURSE. PT IN BED SLEEPING, AROUSABLE, RESP E/U ON RA. NO ACUTE DISTRESS NOTED. IV TO LFA W/ NO SIGNS OF INFILTRATION, IVF INFUSING WELL. G-TUBE IN PLACE SECURED W/ ABD BINDER, RECEIVING JEVITY 1.2 AT 50 ML/HR INFUSING WELL. BED IN LOWEST POSITION AND CALL LIGHT WITHIN REACH. SITTER AT BEDSIDE. WILL CONTINUE TO MONITOR.
[2019-04-13 08:17] LABS: PLATELET COUNT 83 x10^3mcL (130-400); RED CELL DISTRIBUTION WIDTH 15.6 % (11.5-14.5)
--- NOTE | 2019-04-13 11:40 | NUR ---
TUBE FEEDING CHANGED AT THIS TIME. NO GASTRIC RESIDUAL NOTED. JEVITY 1.2 INFUSING WELL AT 50 ML/HR.
[2019-04-13 14:13] LABS: BAND NEUTROPHIL 7 % (0-10); BASOPHIL 1 % (0-2); MONOCYTE 13 % (0-7)
[2019-04-13 14:14] LABS: PLATELET MORPHOLOGY PLATELETS DECREASED; rbc morphology (normal/abnorm) ABNORMAL (NORMAL)
--- NOTE | 2019-04-13 17:44 | NUR ---
PT IN BED SLEEPING, AROUSABLE, RESP E/U ON RA. NO ACUTE DISTRESS NOTED. IV TO LFA W/ NO SIGNS OF INFILTRATION, IVF INFUSING WELL. PEG TUBE IN PLACE SECURED W/ ABD BINDER, NO GASTRIC RESIDUAL NOTED. JEVITY 1.2 INFUSING WELL AT 50 ML/HR. BED IN LOWEST POSITON. SITTER AT BEDSIDE. WILL ENDORSE TO ONCOMING NURSE.
--- NOTE | 2019-04-13 19:53 | NUR ---
RECEIVED PT IN BED WITH EYES CLOSED , PIV INTACT INFSING WELL , LUNG SOUNDS CTA , GT PATENT INFUSING WELL , 60ML RESIDUAL NOTED , WILL CON;T TO MONITOR , LUNG SOUNDS CTA , ABD SOFT , SKIN TEARS TO LEFT UPPER ARM WITH DRESSING C/D/I , RIGHT ARM WITH EDEMA 1+ WILL ELEVATE ON THE PILLOW , SITE RAILS PADDED NO SZ ACTIVITY NOTED .
--- NOTE | 2019-04-14 02:45 | NUR ---
POST TYLENOL PT'S CALM WITH EYES CLOSED . GT INTACT NO RESIDUAL NOTED, PIV INTACT INFUSING WELL .
--- NOTE | 2019-04-14 05:09 | NUR ---
POST ATIVAN PT'S CALM NO RESP DISTRESS NOTED ,
--- NOTE | 2019-04-14 06:46 | NUR ---
NO CHANGES OF CONDITION NOTED ALL DUE MEDS GIVEN NO REACTION NOTED, GT PATENT NO RESIDUAL NOTED ,PIV INTACT INFUSING WELL.
[2019-04-14 07:07] VITALS: BP 132/59
--- NOTE | 2019-04-14 07:16 | NUR ---
RECEIVED PT FROM SHIFT NURSE ASLEEP BUT AROUSABLE. SEIZURE PRECAUTIONS IN PLACE. IV INTACT AND PATENT. GTUBE FEEDING AND TOLERATING WELL. FALL PRECAUTIONS IN PLACE. BED IN LOW POSITION. CALL LIGHT WITHIN REACH. WILL CONTINUE TO MONITOR.
[2019-04-14 07:20] LABS: CALCIUM 8.5 mg/dL (8.5-10.1); CARBON DIOXIDE 24.6 mmol/L (21-32); CHLORIDE SERUM 117 mmol/L (98-107); CREATININE SERUM 0.5 mg/dL (0.7-1.3); GFR1 > 60 mL/min; GLUCOSE SERUM 98 mg/dL (74-106); POTASSIUM SERUM 3.6 mmol/L (3.5-5.1); SODIUM SERUM 151 mmol/L (136-145)
[2019-04-14 07:51] LABS: PLATELET COUNT 73 x10^3mcL (130-400); RED CELL DISTRIBUTION WIDTH 15.7 % (11.5-14.5)
--- NOTE | 2019-04-14 08:50 | NUR ---
CHANGED GTUBE FEEDING AND PT TOLERATING WELL. WILL CONTINUE TO MONITOR.
--- NOTE | 2019-04-14 10:30 | NUR ---
PT AWAKE LYING IN BED. BED IN LOW POSITION. CALL LIGHT WITHIN REACH. WILL CONTINUE TO MONITOR.
[2019-04-14 12:05] LABS: BAND NEUTROPHIL 2 % (0-10); BASOPHIL 0 % (0-2); MONOCYTE 12 % (0-7); SEGMENTED NEUTROPHILS 63 % (37-75)
[2019-04-14 12:06] LABS: PLATELET MORPHOLOGY GIANT PLATELET SEEN; ovalocyte/elliptocyte 1+; rbc morphology (normal/abnorm) ABNORMAL (NORMAL)
--- NOTE | 2019-04-14 13:23 | NUR ---
PT ASLEEP BUT AROUSABLE. APPEARS IN NO ACUTE DISTRESS. BED IN LOW POSITION. WILL CONTINUE TO MONITOR.
--- NOTE | 2019-04-14 15:07 | NUR ---
1. Recommend continuing Jevity 1.2@ 50ml/hr. This will provide 1440 kcal, 66g protein to meet 85% estimated calorie and 98% estimated protein needs.
--- NOTE | 2019-04-14 15:07 | NUR ---
Follow-up Nutrition Assessment: 248/A SHELLY MOSER FU HR Dx: ALOC, Hepatic encephalopathy PMHx: liver cirrhosis w/hepatic encephalopathy, polysubstance abuse, TIPS procedure with Portal Vein Occlusion and hemorrhagic stroke Labs: (04/14) NA 151H, BUN 6.0L, CREAT 0.5L, WBC 2.3L, Ammonia 75H Meds: Colace, zofran Diet: (PEG) TF Jevity 1.2 @ 15ml/hr, goal 50ml/hr, FWF 150cc Q4H TF Intake: 1000 ml Weights: (04/04) 56 kg, (04/03) 56.2 kg Skin: intact Balwinder: 15 I/Os: (04/13) 3600/ (ouput) not documented Edema: edema to LUE GI: Incontinent of stool, PEG tube Last BM: 04/13/19 RDN Visit (04/14): Patient was sleeping and had sitter at bedside. Jevity 1.2 was running @ 50 ml/hr. FWF 150 ml Q4H. Per RN Sameer, patient is tolerating tube feeding with no residuals. Per progress note (04/14), plan is to continue lactulose and to monitor ammonia level. Estimated Nutritional Needs Based on actual body weight 56.2 kg Energy: 5146-1055 kcal/d (30-35 kcal/kg)- liver cirrhosis Protein: 56.2- 67 g/d (1.0-1.2 g/kg)- cirrhosis Fluid: 5462-2570 ml/d (1 ml/kcal) or per doctor Nutrition Diagnosis 1. Inadequate enteral nutrition infusion related to current TF rate as evidenced by meeting < 80% estimated nutrient needs. (improved) 2. Increased nutrient needs related to increased metabolic demands as evidenced by liver cirrhosis. (ongoing) Intervention 1. Recommend continuing Jevity 1.2@ 50ml/hr. This will provide 1440 kcal, 66g protein to meet 85% estimated calorie and 98% estimated protein needs. Monitor/Evaluate Goal: Have pt meet at least 75% of estimated needs Monitor: TF intake/ tolerance, Labs, GI function F/U in 2-3 days as high risk 04/16-
--- NOTE | 2019-04-14 16:10 | NUR ---
PT AWAKE RESTING IN BED. TOLERATING GTUBE FEEDING WELL. WILL CONTINUE TO MONITOR.
--- NOTE | 2019-04-14 18:28 | NUR ---
PT ASLEEP BUT AROUSABLE. APPEARS IN NO ACUTE DISTRESS. TOLERATING GTUBE FEEDING WELL. IV INTACT AND PATENT. MITTEN ON RT HAND. BED IN LOW POSITION. WILL BE ENDORSED.
--- NOTE | 2019-04-14 19:05 | NUR ---
REPORT RECIEVED FROM DAY SHIFT RN. PATIENT WAS SEEN AND IS RESTING COMFORTABLY IN BED WITH EYES CLOSED. EASILY AROUSABLE. NONVERBAL. SEIZURE PRECAUTIONS IN PLACE. BILATERAL MITTENS NOTED TO PREVENT PATIENT FROM PULLING IV AND PEG TUBE. NO S/S OF PAIN NOTED. NO INDICATED OF CHEST PAIN. SITTER AT BEDSIDE. IV TO THE LFA INFUSING WELL. PATENT AND INTACT. NO REDNESS OR SWELLING NOTED. PEG TUBE IN PLACE WITH TUBE FEEDING JEVITY 1.2 @ 50ML/HR. COMFORT AND SAFETY MEASURES IN PLACE. BED IS LOCKED AND IN THE LOWEST POSITION. SIDE RAILS UP X2. CALL LIGHT IS WITHIN REACH. BED NEAR NURSES STATION. WILL CONTINUE TO MONITOR.
--- NOTE | 2019-04-14 19:05 | NUR ---
REPORT RECIEVED FROM DAY SHIFT RN. PATIENT WAS SEEN AND IS RESTING COMFORTABLY IN BED WITH EYES CLOSED. EASILY AROUSABLE. NONVERBAL. SEIZURE PRECAUTIONS IN PLACE. RIGHT HAND MITTENS NOTED TO PREVENT PATIENT FROM PULLING IV AND PEG TUBE. NO S/S OF PAIN NOTED. NO INDICATED OF CHEST PAIN. IV TO THE LFA INFUSING WELL. PATENT AND INTACT. NO REDNESS OR SWELLING NOTED. PEG TUBE IN PLACE WITH TUBE FEEDING JEVITY 1.2 @ 50ML/HR. ABD BINDER IN PLACE TO PROTECT PEG TUBE AND PREVENT PATIENT FROM PULLING IT. COMFORT AND SAFETY MEASURES IN PLACE. BED IS LOCKED AND IN THE LOWEST POSITION. SIDE RAILS UP X2. CALL LIGHT IS WITHIN REACH. BED NEAR NURSES STATION. WILL CONTINUE TO MONITOR.
--- NOTE | 2019-04-14 19:05 | NUR ---
REPORT RECIEVED FROM DAY SHIFT RN. PATIENT WAS SEEN AND IS RESTING COMFORTABLY IN BED WITH EYES CLOSED. EASILY AROUSABLE. NONVERBAL. SEIZURE PRECAUTIONS IN PLACE. BILATERAL MITTENS NOTED TO PREVENT PATIENT FROM PULLING IV AND PEG TUBE. NO S/S OF PAIN NOTED. NO INDICATED OF CHEST PAIN. IV TO THE LFA INFUSING WELL. PATENT AND INTACT. NO REDNESS OR SWELLING NOTED. PEG TUBE IN PLACE WITH TUBE FEEDING JEVITY 1.2 @ 50ML/HR. COMFORT AND SAFETY MEASURES IN PLACE. BED IS LOCKED AND IN THE LOWEST POSITION. SIDE RAILS UP X2. CALL LIGHT IS WITHIN REACH. BED NEAR NURSES STATION. WILL CONTINUE TO MONITOR.
--- NOTE | 2019-04-14 20:30 | NUR ---
CASE MANAGEMENT CALLED ABOUT AN UPDATE ON THE PATIENT SO SHE CAN FIND PLACEMENT. UPDATED AND SHE SAID SHE WILL SEE THE PATIENT TOMORROW MORNING.
[2019-04-14 21:00] VITALS: BP 112/66
--- NOTE | 2019-04-15 00:57 | NUR ---
PATIENT IS RESTING IN BED WITH EYES CLOSED. NO AGITATION NOTED. OCCASIONALLY TRIES TO BITE RIGHT HAND MITTEN. NO DISTRESS NOTED. BREATHING EVEN ON ROOM AIR. IV TO THE LFA INFUSING WELL. PEG TUBE WITH CONTINUOUS FEEDING AT 50ML/HR. 20ML OF RESIDUALS NOTED BEFORE ADMINISTERING LACTULOSE. SEIZURE PRECAUTIONS IN PLACE. SAFETY MEASURES IN PLACE. CALL LIGHT IS WITHIN REACH. WILL CONTINUE TO MONITOR.
--- NOTE | 2019-04-15 04:30 | NUR ---
TUBE FEEDING CHANGED. PATIENT TOLERATING WELL AT 50ML/HR WITH FWF AR 150ML Q4H. NO DISTRESS NOTED. WILL CONTINUE TO MONITOR.
[2019-04-15 05:58] VITALS: BP 117/73
--- NOTE | 2019-04-15 06:50 | NUR ---
PATIENT SLEPT IN LONG INTERVALS THROUGHOUT THE NIGHT. NO ACUTE CHANGES NOTED. BREATHING EVEN ON ROOM AIR. NO S/S OF PAIN NOTED. NO S/S OF AGITATION OR RESTLESSNESS NOTED. IV TO THE LFA INFUSING WELL. PEG TUBE WITH CONTINUOUS TUBE FEEDING AT 50ML/HR. 20ML TOTAL OF RESIDUALS NOTED AND RETURNED. TOLERATING WELL. SEIZURE PRECAUTIONS IN PLACE. RIGHT MITTEN IN PLACE. PATIENT WAS BITTING MITTEN A COUPLE OF TIMES THROUGHOUT THE NIGHT. ROOM NEAR NURSES STATION. CALL LIGHT IS WITHIN REACH. COMFORT MEASURES MAINTAINED. NO SEIZURES NOTED. WILL ENDORSE CARE TO DAY SHIFT RN.
[2019-04-15 07:19] LABS: CALCIUM 8.5 mg/dL (8.5-10.1); CARBON DIOXIDE 24.9 mmol/L (21-32); CHLORIDE SERUM 117 mmol/L (98-107); CREATININE SERUM 0.4 mg/dL (0.7-1.3); GFR1 > 60 mL/min; GLUCOSE SERUM 106 mg/dL (74-106); PLATELET COUNT 74 x10^3mcL (130-400); POTASSIUM SERUM 3.8 mmol/L (3.5-5.1); RED CELL DISTRIBUTION WIDTH 15.1 % (11.5-14.5); SODIUM SERUM 147 mmol/L (136-145)
--- NOTE | 2019-04-15 07:20 | NUR ---
RECEIVED CRITICAL LAB WBC 2.2
--- NOTE | 2019-04-15 07:25 | NUR ---
RECEIVED PT FROM MEDICINE TEACHER. PT SLEEPING, NON VERBAL. PT ON ROOM AIR WITH NO RESP DISTRESS NOTED. BREATHING EVEN AND UNLABORED. LUNGS CTA. PERIPHERAL PULSES PALP[place], NO EDEMA NOTED. IV ACCESS LFA C/D/I INFUSING NS. ACTIVE BOWEL SOUNDS NOTED. PT INC. PT NOTED TO HAVE LEFT SIDED WEAKNESS. PT HAS MITTEN TO RIGHT HAND. PT HAS PEG TUBE WITH JEVITY 1.2 AT 50ML/HR. NO GASTRIC RESIDUAL NOTED. HOB AT 35 DEGREES. SAFETY MEASURES IN PLACE, BED LOW AND LOCKED.
--- NOTE | 2019-04-15 07:41 | NUR ---
SARKIS DANIELSON AWARE OF CRITICAL LAB 2.2. NO NEW ORDERS AT THIS TIME
[2019-04-15 08:49] VITALS: BP 99/68
--- NOTE | 2019-04-15 10:42 | NUR ---
PT REPOSITIONED WITH PROFESSIONAL BENEFITS SALES CONSULTANT. NO ACUTE DISTRESS OR DISCOMFORT NOTED AT THIS TIME.
--- NOTE | 2019-04-15 11:23 | NUR ---
PT HAD LOOSE BM/URINATED. PT CLEANED AND REPOSITIONED. SAFETY MAINTAINED.
[2019-04-15 12:02] LABS: ATYPICAL LYMPH 3 %; BAND NEUTROPHIL 0 % (0-10); BASOPHIL 0 % (0-2); MONOCYTE 11 % (0-7); SEGMENTED NEUTROPHILS 66 % (37-75)
[2019-04-15 12:04] LABS: PLATELET MORPHOLOGY PLATELETS DECREASED; rbc morphology (normal/abnorm) ABNORMAL (NORMAL)
--- NOTE | 2019-04-15 14:41 | NUR ---
PT CLEANED AND REPOSITIONED WITH PATIENT CARE PROVIDER. NO ACUTE DISTRESS NOTED AT THIS TIME. SAFETY MAINTAINED.
--- NOTE | 2019-04-15 16:38 | NUR ---
PT CLEANED AND REPOSITIONED WITH WHITEWASHER. PT ALERT. PT INC OF URINE. SAFETY MEASURES MAINTAINED.
[2019-04-15 16:58] VITALS: BP 159/68
--- NOTE | 2019-04-15 18:01 | NUR ---
DUE MED ADMINISTERED ORDERED. NO GASTRIC RESIDUAL NOTED. HOB AT 35 DEGREES. PT CLEANED AND REPOSITIONED WITH KITCHEN STEWARD/STEWARDESS. INCONTINENT OF URINE. SAFETY MEASURES MAINTAINED.
--- NOTE | 2019-04-15 18:39 | NUR ---
PT STABLE AT THIS TIME. ALL NEEDS TENDED TO THROUGHOUT SHIFT. NO ACUTE DISTRESS OR DISCOMFORT NOTED AT THIS TIME. PT HAS ONE MITTEN TO RIGHT HAND WITH SAFETY CHECKS THROUGHOUT THE DAY. SITTER AT BEDSIDE FOR OTHER PATIENT. PT CALM AND COOPERATIVE THROUGHOUT SHIFT. WILL CONTINUE TO MONITOR AND ENDORSE CARE TO CLASSROOM INSTRUCTIONAL AIDE.
--- NOTE | 2019-04-15 20:52 | NUR ---
PATIENT RECEIVED NONVERBAL IN BED. RESPIRATION EVEN AND UNLABORED, ON ROOM AIR. +1 EDEMA TO DMITRI. ONGOING TUBE FEEDING JEVITY 1.2 AT 50 CC/HR TOLERATING WELL VIA PEG TUBE. INCONTINENT OF BOWEL AND BLADDER. LEFT SIDED WEAKNESS, TOTAL CARE. RIGHT HAND MITTEN IN PLACED. RIGHT FOREARM SCAB. ONGOING 0.9% NS AT 100 CC/HR INFUSING WELL AT THE LEFT FOREARM. WILL CONTINUE TO MONITOR.
[2019-04-15 21:12] VITALS: BP 120/57
[2019-04-16 06:31] VITALS: BP 129/73
[2019-04-16 06:45] LABS: CALCIUM 8.4 mg/dL (8.5-10.1); CARBON DIOXIDE 24.9 mmol/L (21-32); CHLORIDE SERUM 113 mmol/L (98-107); CREATININE SERUM 0.4 mg/dL (0.7-1.3); GFR1 > 60 mL/min; GLUCOSE SERUM 84 mg/dL (74-106); POTASSIUM SERUM 3.7 mmol/L (3.5-5.1); SODIUM SERUM 146 mmol/L (136-145)
--- NOTE | 2019-04-16 06:55 | NUR ---
PATIENT RESTING IN BED WITH EPISODES OF MOANING. RESPIRATION EVEN AND UNLABORED, ON ROOM AIR. TOLERATING TUBE FEEDING WELL, NO RESIDUAL NOTED. PEG TUBE IN PLACED. IV SITE NO SIGN OF INFILTRATION. INCONTINENT OF URINE/STOOL. KEPT CLEAN AND DRY. REMAIN SAFE. 1:1 SITTER AT BEDSIDE FOR SAFETY.
[2019-04-16 07:27] LABS: PLATELET COUNT 79 x10^3mcL (130-400); RED CELL DISTRIBUTION WIDTH 15.6 % (11.5-14.5)
--- NOTE | 2019-04-16 07:49 | NUR ---
RECEIVED PATIENT FROM ELPIDIO DIXON. PATIENT IN BED W MILD AGITATION. SITTER AT BEDSIDE. TUBE FEEDING RUNNING. NO SIGNS OF PAIN OR RESPIRATORY DISTRESS. LAB REPORTED LOW WBC COUNT OF 2.4. NOTIFIED DIETARY MANAGER SARKIS AND MADE AWARE OF SLIGHT INCREASE BUT LOW TREND FOR PAST FEW DAYS. CALL LIGHT IN REACH AT THIS TIME.
[2019-04-16 08:37] VITALS: BP 118/69
[2019-04-16 11:23] LABS: ATYPICAL LYMPH 4 %; BAND NEUTROPHIL 0 % (0-10); BASOPHIL 1 % (0-2); MONOCYTE 24 % (0-7); SEGMENTED NEUTROPHILS 50 % (37-75)
[2019-04-16 11:24] LABS: rbc morphology (normal/abnorm) ABNORMAL (NORMAL)
--- NOTE | 2019-04-16 13:13 | NUR ---
PATIENT IN BED, TURNED TO RIGHT SIDE. NO VISUAL SIGNS OF DISCOMFOT OR PAIN. LACTULOSE GT ADMINISTERED, WILL CLEAN PATIENT WHEN NECESSARY AND MONITOR AMMONIA LEVELS. CALL LIGHT IN REACH, TF RUNNING, IV INFUSING. PATIENT ACROSS FROM NURSES STATION.
--- NOTE | 2019-04-16 18:05 | NUR ---
PATIENT IN BED, INCREASING AGITATION AT THIS TIME. PATIENT ATTEMPTING TO REMOVE DRESSING TO IV ACCESS. WILL NOTIFY APPLICATIONS CHEMIST SARKIS FOR POSSIBLE PRN MEDICATIONS AND WILL ENDORSE TO ONCOMING NURSE. CALL LIGHT IN REACH AT THIS TIME.
[2019-04-16 18:11] VITALS: BP 116/65
[2019-04-16 20:52] VITALS: BP 104/56
--- NOTE | 2019-04-16 22:29 | NUR ---
AT 195 I RECEIVED PT IN BED VERY DROWSY OPEN EYES WITH TACTILE STIMULUS , RESP EVEN LUNG SOUNDS CTA , ABD SOFT BS ACTIVE X4 , PT HAS GT FEEDING NO RESIDUAL NOTED , GT SITE CLEAR NO S/S OF INFECTION NOTED. PIV INTACT INFUSING WELL . HOB ELEVATED . CALL LIGHT WITHIN PT'S REACH , WILL CON;T TO MONITOR , TURN PT Q2.
--- NOTE | 2019-04-17 01:34 | NUR ---
PT'S IN BED AWAKE NO ACUTE DISTRESS NOTED, MULTIPLE LOOSE STOOL NOTED, WILL KEEP PT CLEAN AND DRY AT ALL THE TIME, GT PATENT NO RESIDUAL NOTED. PIV INTACT INFUSING WELL.
--- NOTE | 2019-04-17 03:31 | NUR ---
I HAVE REVIEWED THE DATA COLLECTION BY DALILA (NAME):MIGUEL BURKS ENTERED ON (DATE/TIME):04/16/19 I CONCUR WITH THE DATA AND ANY EXCEPTIONS OR COMMENTS ARE LISTED BELOW:
--- NOTE | 2019-04-17 05:44 | NUR ---
ATIVAN 1MG GIVEN VIA GT ,PT'S VERY AGITATED TRYING TO PULL GT OUT AND IV . WILL MONITOR PT CLOSELY .
--- NOTE | 2019-04-17 06:22 | NUR ---
NO CHANGES OF CONDITION NOTED, ALL DUE MEDS GIVEN NO REACTION NOTED, MULTIPLE LOOSE MARIBELL NOTED, GT PATENT NO RESIDUAL NOTED, PIV INTACT INFUISING WELL .
[2019-04-17 06:48] LABS: CALCIUM 8.2 mg/dL (8.5-10.1); CARBON DIOXIDE 26.9 mmol/L (21-32); CHLORIDE SERUM 113 mmol/L (98-107); CREATININE SERUM 0.5 mg/dL (0.7-1.3); GFR1 > 60 mL/min; GLUCOSE SERUM 99 mg/dL (74-106); POTASSIUM SERUM 3.2 mmol/L (3.5-5.1); SODIUM SERUM 146 mmol/L (136-145)
--- NOTE | 2019-04-17 07:25 | NUR ---
RECEIVED PT FROM [facility] DALILA RIVERA. PT AWAKE/ALERT, UNABLE TO ASSESS ORIENTATION. MEDSURG. NO S/S OF ACUTE DISTRESS. NO SOB ON ROOM AIR. NO S/S OF CHEST PAIN. MED-SURG. PEG IN PLACE, TUBE FEEDING RUNNING AT 50CC/HR. IV WNL TO LFA, NO REDNESS, NO SWELLING, NO INFILTRATION. PATENT. FLUSHES WELL. SIDE RAILS UP X2. FALL PRECAUTIONS IN PLACE. BED IN LOW POSITION. CALL LIGHT WITHIN REACH. PT IN ROOM CLOSE TO NURSES STATION. WILL CONTINUE MONITOR.
[2019-04-17 07:29] LABS: PLATELET COUNT 79 x10^3mcL (130-400); RED CELL DISTRIBUTION WIDTH 15.3 % (11.5-14.5)
--- NOTE | 2019-04-17 07:36 | NUR ---
WBC 2.4, NO CHANGE. TRENDS LOW. WILL NOTIFY PHYSICIAN.
[2019-04-17 08:00] VITALS: BP 105/60
--- NOTE | 2019-04-17 10:40 | NUR ---
PT LAYING IN BED WITH HOB ELEVATED. CALM/COOPERATIVE AT THIS TIME. AROUSABLE TO TACTILE STIMULI. NO SOB ON ROOM AIR. MED-SURG. NO S/S OF CHEST PAIN. IV WNL TO LFA, PATENT AND FLUSHES WELL. IV FLUIDS FLOWING. PEG TUBE IN PLACE, TUBE FEEDING RUNNING AT 50CC/HR. <10CC RESIDUAL. REPLACED. SIDE RAILS UP X2. SEIZURE PRECAUTIONS IN PLACE. FALL PRECAUTIONS IN PLACE. BED IN LOW POSITION. CALL LIGHT WITHIN REACH. WILL CONTINUE TO MONITOR.
[2019-04-17 11:42] LABS: BAND NEUTROPHIL 4 % (0-10); BASOPHIL 0 % (0-2); MONOCYTE 13 % (0-7); SEGMENTED NEUTROPHILS 55 % (37-75)
[2019-04-17 11:43] LABS: PLATELET MORPHOLOGY GIANT PLATELET SEEN; rbc morphology (normal/abnorm) ABNORMAL (NORMAL); tear drop cell (dacryocyte) 1+
--- NOTE | 2019-04-17 11:56 | NUR ---
1. Recommend continuing Jevity 1.2@ 50ml/hr. This will provide 1440 kcal, 66g protein to meet 85% estimated calorie and 98% estimated protein needs.
--- NOTE | 2019-04-17 11:56 | NUR ---
Follow-up Nutrition Assessment: 248/A SHELLY MOSER FU HR Dx: ALOC, Hepatic encephalopathy PMHx: liver cirrhosis w/hepatic encephalopathy, polysubstance abuse, TIPS procedure with Portal Vein Occlusion and hemorrhagic stroke Labs: (04/17) NA 146H, BUN 4.0L, CREAT 0.5L, WBC 2.4L, Ammonia 61H Meds: Colace, zofran Diet: (PEG) TF Jevity 1.2 @ 15ml/hr, goal 50ml/hr, FWF 150cc Q4H PO Intake: NPO Weights: (04/04) 56 kg, (04/03) 56.2 kg Skin: intact Balwinder: 13 I/Os: (04/16) 4180/ (output) not documented Edema: edema to LUE GI: Incontinent of stool, PEG tube Last BM: 04/16/19 RDN Visit (04/17): Patient was sleeping and Jevity 1.2 was running @ 50 ml/hr. FWF 150 ml Q4H. Per RN Yola, patient is tolerating tube feeding with ~ 10cc residuals. Per progress note (04/17), plan is to continue lactulose and to monitor ammonia level. Estimated Nutritional Needs Based on actual body weight 56.2 kg Energy: 9374-7857 kcal/d (30-35 kcal/kg)- liver cirrhosis Protein: 56.2- 67 g/d (1.0-1.2 g/kg)- cirrhosis Fluid: 5052-0789 ml/d (1 ml/kcal) or per doctor Nutrition Diagnosis 1. Inadequate enteral nutrition infusion related to current TF rate as evidenced by meeting < 80% estimated nutrient needs. (improved) 2. Increased nutrient needs related to increased metabolic demands as evidenced by liver cirrhosis. (ongoing) Intervention 1. Recommend continuing Jevity 1.2@ 50ml/hr. This will provide 1440 kcal, 66g protein to meet 85% estimated calorie and 98% estimated protein needs. Monitor/Evaluate Goal: Have pt meet at least 75% of estimated needs Monitor: TF intake/ tolerance, Labs, GI function F/U in 3-5 days as moderate risk
[2019-04-17 15:48] VITALS: BP 110/63
--- NOTE | 2019-04-17 18:17 | NUR ---
PT LAYING IN BED. NO S/S OF ACUTE DISTRESS. RESTING IN BED WITH BOTH EYES CLOSED. IV FLUIDS FLOWING TO LUE, IV PATENT AND FLUSHES WELL. NO REDNESS, NO SWELLING, NO INFILTRATION. PEG TUBE IN PLACE TO ABDOMEN WITH ABDOMINAL BINDER FOR PROTECTION. TUBE FEEDING JEVITY RUNNING AT 50CC/HR. TOLERATING WELL. 20CC RESIDUAL OUTPUT, REPLACED. APHASIC/GARBLED SPEECH AT TIMES. ABLE TO FOLLOW SIMPLE COMMANDS AT TIMES. NO S/S OF PAIN. FALL PRECAUTIONS IN PLACE. PT IN ROOM CLOSE TO NURSES STATION. SIDE RAILS UP X2. BED IN LOW POSITION. CALL LIGHT WITHIN REACH. WILL ENDORSE TO ONCOMING SHIFT.
[2019-04-17 20:15] VITALS: BP 113/85
--- NOTE | 2019-04-17 22:09 | NUR ---
RECEIVED PT IN BED AT 1915 EYES CLOSED, LUNG SOUNDS CTA , ABD SOFT BS ACTIVE X4, PEG FEEDING WEL JEVITY AT 50ML/HR AND H20 [id number] NO RESIDUAL NOTED, ABD BINDER INPLACE , PIV INTACT INFUSING WELL , SKIN WARM TO TOUCH NO ACTIVE WOUNDS NOTED, WILL KEEP PT CLEAN AND DRY AT ALL TIME .
--- NOTE | 2019-04-18 03:21 | NUR ---
POST ATIVAN PT'S CALM ,NEW PIV INSERTED , OLD IV DC'S CANULAR INTACT ,GT FEEDING NO RESIDUAL NOTED .
[2019-04-18 05:47] VITALS: BP 110/68
--- NOTE | 2019-04-18 06:20 | NUR ---
NO CHANGES OF CONDITION NOTED, PT'S IN BED AWAKE NO ACUTE DISTRESS NOTED, NO SZ ACTIVITY NOTED WELL, PIV INTACT INFUSING WELL , PEG FEEDING NO RESIDUAL NOTED, [PT HAD MULTIPLE LOOSE STOOL ,TREASURY DIRECTOR KEPT PT CLEAN AND DRY AT ALL THE TIME .
[2019-04-18 06:35] LABS: CALCIUM 8.3 mg/dL (8.5-10.1); CARBON DIOXIDE 24.4 mmol/L (21-32); CHLORIDE SERUM 113 mmol/L (98-107); CREATININE SERUM 0.5 mg/dL (0.7-1.3); GFR1 > 60 mL/min; GLUCOSE SERUM 90 mg/dL (74-106); MAGNESIUM 1.7 mg/dL (1.8-2.4); POTASSIUM SERUM 3.8 mmol/L (3.5-5.1); SODIUM SERUM 145 mmol/L (136-145)
[2019-04-18 06:39] LABS: PLATELET COUNT 74 x10^3mcL (130-400); RED CELL DISTRIBUTION WIDTH 15.2 % (11.5-14.5)
--- NOTE | 2019-04-18 07:30 | NUR ---
PATIENT SLEEPING IN BED, AROUSABLE. NO ACUTE DISTRESS NOTED AT THIS TIME. PATIENT IS ALERT, UNABLE TO ASSESS ORIENTATION. SEIZURE PRECAUTIONS IN PLACE. NO RESPIRATORY DISTRESS NOTED, PATIENT ON ROOM AIR. PATIENT TOLERATING TUBE FEEDINGS JEVITY 1.2 AT 50ML/HR, FWF 120 Q4H. 10ML RESIDUAL & REPLACED. NS IV INFUSING TO RFA AT 100ML/HR, IV SITE CDI & PATENT, NO S/S OF INFILTRATION. CALL LIGHT WITHIN REACH, BED IN LOW POSITION, BED ALARM ON FOR SAFETY PRECAUTION. WILL CONTINUE TO MONITOR FOR CHANGES.
[2019-04-18 10:20] VITALS: BP 129/77
[2019-04-18 10:22] VITALS: BP 140/61
[2019-04-18 11:48] LABS: BAND NEUTROPHIL 2 % (0-10); BASOPHIL 1 % (0-2); MONOCYTE 14 % (0-7); SEGMENTED NEUTROPHILS 54 % (37-75)
[2019-04-18 11:49] LABS: rbc morphology (normal/abnorm) ABNORMAL (NORMAL)
[2019-04-18 11:50] LABS: PLATELET MORPHOLOGY PLATELETS DECREASED; tear drop cell (dacryocyte) 1+
--- NOTE | 2019-04-18 12:30 | NUR ---
PATIENT APPEARS RESTLESS AND ANXIOUS, MEDICATED PATIENT WITH ATIVAN PER PROTOCOL (SEE EMAR). WILL CONTINUE TO MONITOR PATIENT. CALL LIGHT WITHIN REACH, BED IN LOW POSITION FOR SAFETY PRECAUTION.
[2019-04-18 16:30] VITALS: BP 108/63
--- NOTE | 2019-04-18 17:47 | NUR ---
PATIENT RESTING IN BED, NO ACUTE DISTRESS NOTED. NO ACUTE CHANGES THROUGH OUT SHIFT, PATIENT IS STABLE. SEIZURE & ASPIRATION PRECAUTIONS IN PLACE. NS IV INFUSING AT 100ML/HR, IV SITE CDI&PATENT, NO S/S OF INFILTRATION. PATIENT TOLERATING TUBE FEEDINGS. JEVITY 1.2 INFUSING AT 50ML/HR, FWF 120ML Q4H. PATIENT REPOSITION Q2H. FAMILY AT BEDSIDE. CALL LIGHT WITHIN REACH, BED IN LOW POSITION. WILL CONTINUE TO MONITOR FOR CHANGES.
--- NOTE | 2019-04-18 19:30 | NUR ---
PT NON-VERBAL. GRUNTS WITH TOUCH STIMULI. SZ PRECAUTION IN PLACE. R SIDE OF SKULL IS SUNKEN D/T CRAINOTOMY. MED SURG. NO SIGN OF DISTRESS NOTED. PULSES ARE PRESENT. NO EDEMA NOTED. LUNGS CLEAR IN ALL FEILDS. ON RA, NO SIGN OF RESP DISTRESS. BOWEL SOUNDS PRESENT. ABD BINDER TO HOLD PEG TUBE IN PLACE. JEVITY 1.2 RUNNING AT GOAL RATE 50, WITH FWF 150 Q4HR. 10CC RESIDUALE, REPLACED. PT TOLERATING FEEDING WELL. SKIN INTACT. REPOSITIONED PT. APPLIED PILLOW BETWEEN LEGS, KEEPS CROSSING THEM. IV ON RFA INTACT AND PATENT. NO SIGN OF INFILTRATION OR IRRITAION. MITTEN ON R HAND, PT PULLS ON LINES. BED IS AT LOWEST SETTING. CALL LIGHT WITHIN REACH. BED ALARM IS ON. WILL CONTIUE TO MONITOR.
[2019-04-18 21:29] VITALS: BP 107/57
--- NOTE | 2019-04-19 01:39 | NUR ---
PT IS RESTING IN BED. NEW GOWN AND LINEN PROVIDED D/T PT VOIDING IN BED. IV INTACT. PEG TUBE INTACT AND CLEAN. FEEDING RUNNING AT GOAL RATE, 50CC. NO RESIDUAL. PT TOLERATED WELL. PT MADE COMFORTABLE IN BED. WILL CONTINUE TO MONTIOR.
--- NOTE | 2019-04-19 04:30 | NUR ---
PT IS AGITATED AND GRUNTING. BITTING ON MITTEN ON R HAND AND TOSSING IN BED. GAVE PRN ATIVAN PER EMAR. AT BEDSIDE TO MAKE SURE PT STAYS SAFE. WILL CONTINUE TO MONTIOR.
[2019-04-19 05:33] VITALS: BP 119/71
--- NOTE | 2019-04-19 06:59 | NUR ---
PT IS RESTING IN BED. PT IS GRUNTING AND STILL A BIT RESTLESS IN BED. TOLERATING FEEDIN WELL. PT HAD TWO SMALL BMS DURING SHIFT. NO ACUTE EVENT OCCURED AT NIGHT. BED IS AT LOWEST SETTING. CALL LIGHT WITHIN REACH. WILL ENDORSE TO AM NURSE.
--- NOTE | 2019-04-19 07:30 | NUR ---
AAO TIMES 4. NO TELE, MED SURG PATIENT. LUNGS CTA. NO SOB. O2 SAT ON RA 97%. BS'S ACTIVE TIMES 4. GT FEEDING JEVITY 50 ML PER HOUR, NO RESIDUAL. PERIPHERAL PULSES PALPABLE. NO EDEMA BLE, LEFT HAND +1 PITTING EDEMA. NO C/O PAIN. NO SOB. INCONTINENT OF BOWEL AND BLADDER, LAYING ON ABSORBANT PAD. IV SITE RFA CDI. RIGHT HAND MITTEN ON BUT NOT TIED, HE SOMETIMES REMOVES HIS IV, PULLS AT TUBING.
[2019-04-19 08:08] LABS: PLATELET COUNT 73 x10^3mcL (130-400); RED CELL DISTRIBUTION WIDTH 15.4 % (11.5-14.5)
[2019-04-19 08:18] LABS: CALCIUM 8.6 mg/dL (8.5-10.1); CHLORIDE SERUM 113 mmol/L (98-107); CREATININE SERUM 0.4 mg/dL (0.7-1.3); GFR1 > 60 mL/min; GLUCOSE SERUM 91 mg/dL (74-106); POTASSIUM SERUM 3.8 mmol/L (3.5-5.1); SODIUM SERUM 144 mmol/L (136-145)
[2019-04-19 09:21] VITALS: BP 116/74
[2019-04-19 10:06] LABS: BAND NEUTROPHIL 5 % (0-10); BASOPHIL 0 % (0-2); MONOCYTE 12 % (0-7); SEGMENTED NEUTROPHILS 52 % (37-75)
[2019-04-19 10:07] LABS: rbc morphology (normal/abnorm) ABNORMAL (NORMAL)
[2019-04-19 10:08] LABS: tear drop cell (dacryocyte) 1+
[2019-04-19 17:07] VITALS: BP 116/72
--- NOTE | 2019-04-19 18:00 | NUR ---
ALERT AT TIMES, SLEEPING AT OTHERS. NO TELE, MED SURG. NO RESIDUALS FOUND WHEN GT CHECKED TODAY. JEVITY 50 ML PER HOUR. IV SITE RFA CDI RFA. SEIZURE PRECAUTIONS. ON AIR MATTRESS. HE TURNS HIMSELF FREQUENTLY. INCONTINENT OF URINE AND BOWEL, LAYING ON ABSORBANT PAD. MARGI TO RIGHT HAND, NOT FASTENED TO BED. LEFT HAND WEAK.
--- NOTE | 2019-04-19 19:30 | NUR ---
PT IS RESTING IN BED. NON VERBAL BUT GRUNTS. SZ PRECAUTION IN PLACE. MED SURG. NO SIGN OF DISTRESS NOTED. PULSES ARE PRESENT. NO EDEMA NOTED. LUNGS CLEAR IN ALL FEILDS. ON RA, DENIES ANY SOB. EQUAL CHEST RISE AND FALL. NO SIGN OF RESP DISTRESS. BOWEL SOUNDS PRESENT. PEG TUBE IN PLACE, SECURED WITH THE ABD BINDER. JEVITY 1.2 RUNNING AT GOAL RATE 50CC WITH 150 FWF Q4HR. NO RISIDUAL. PT TOLERATING FEEDING WELL. SKIN IS INTACT. IV ON RFA INTACT AND PATENT. BED IS AT LOWEST SETING. CALL LIGHT WITHIN REACH. BED ALARM IS ON. WILL CONTINUE TO MONTIOR.
[2019-04-19 21:43] VITALS: BP 96/56
--- NOTE | 2019-04-20 01:50 | NUR ---
PT IS RESTING IN BED WITH BOTH EYES CLOSED. BREATHING EVEN AND UNLABORED. NO SIGN OF DISTRESS NOTED. PEG TUBE IN PLACE. IV INTACT AND PATENT. BED IS AT LOWEST SETTING. CALL LIGHT WITHIN REACH. WILL CONTINUE TO MONITOR.
[2019-04-20 06:27] VITALS: BP 100/50
--- NOTE | 2019-04-20 06:31 | NUR ---
PT IS RESTING IN BED. VERY VOCAL THIS MORNING, TRYING TO FORM WORDS. NO ACUTE EVENT OCCURED AT NIGHT. PT HAD A BM THIS MORNING. PEG TUBE IN PLACE. BED IS AT LOWEST SETTING. CALL LIGHT WITHIN REACH. WILL ENDORSE TO AM NURSE.
[2019-04-20 06:40] LABS: CALCIUM 8.2 mg/dL (8.5-10.1); CARBON DIOXIDE 25.4 mmol/L (21-32); CHLORIDE SERUM 112 mmol/L (98-107); CREATININE SERUM 0.4 mg/dL (0.7-1.3); GFR1 > 60 mL/min; GLUCOSE SERUM 92 mg/dL (74-106); POTASSIUM SERUM 3.9 mmol/L (3.5-5.1); SODIUM SERUM 144 mmol/L (136-145)
[2019-04-20 06:58] LABS: PLATELET COUNT 74 x10^3mcL (130-400); RED CELL DISTRIBUTION WIDTH 15.5 % (11.5-14.5)
--- NOTE | 2019-04-20 07:42 | NUR ---
AAO TO SELF, MOANS WHEN LAYING ON WET PAD, THEN BECOMES QUIET WHEN HE IS CHANGED. INCONTINENT OF BOWEL AND BLADDER. NO TELE, MED SURG. LUNGS CTA. NO SOB. O2 SAT ON RA 96%. BS'S ACTIVE TIMES 4. GT WITH TF JEVITY 50 ML PER HOUR. PERIPHERAL PULSES PALPABLE. NO EDEMA, EXCEPT LEFT HAND WITH +1 EDEMA. 1:1 SITTER IN ROOM. NO FAMILY PRESENT AT THIS TIME.
--- NOTE | 2019-04-20 09:00 | NUR ---
ATIVAN PO WAS GIVEN AT 0900 ORDERED FOR RESTLESSNESS, HE WAS YELLING AND AGITATED. AT 1000 HE WAS SLEEPING.
[2019-04-20 09:42] VITALS: BP 124/83
[2019-04-20 10:55] LABS: BAND NEUTROPHIL 5 % (0-10); BASOPHIL 1 % (0-2); MONOCYTE 11 % (0-7); SEGMENTED NEUTROPHILS 49 % (37-75); rbc morphology (normal/abnorm) ABNORMAL (NORMAL)
[2019-04-20 10:57] LABS: tear drop cell (dacryocyte) 1+
--- NOTE | 2019-04-20 11:51 | NUR ---
1;1 SITTER DISCONTINUED BY HVAC MECHANICAL ENGINEER. HE REMOVED HIS MITTEN TO HIS RIGHT HAND, HE REMOVED HIS ABODMINAL BINDER AND THE DRESSING TO HIS GT AND WAS PULLING ON HIS GT. CHARGE NURSE NOTIFIED.
--- NOTE | 2019-04-20 12:12 | NUR ---
HE KEEPS REMOVING HIS RIGHT HAND MARGI WITH HIS TEETH. I NOTIFIED SARKIS DANIELSON OF HIS AGITATION AND REMOVING THE ABDOMINAL BINDER, THE DRESSING AROUND HIS GT AND HE WAS PULLING ON HIS GT. SHE IS ORDERING SOMETHING FOR HIS AGITATION AND WE WILL BE GETTING A 1;1 SITTER SOON.
--- NOTE | 2019-04-20 12:27 | NUR ---
I GAVE ATIVAN 2 MG IVP SLOW OVER 2 MINUTES AT 1227. AT 1257 HIS BREATHING WAS REGULAR AND HE WAS SLEEPING. A 1:1 SITTER IS NOW AVAILABLE AND WATCHING HIM. WE CHANGED HIS LINENS, PADDING AND GOWN.
[2019-04-20 17:20] VITALS: BP 100/66
--- NOTE | 2019-04-20 17:57 | NUR ---
AAO TIMES 4. MED SURG PATIENT. 1:1 SITTER. IV SITE CDI. GT PATENT, DRESSING CDI. WITH ABDOMINAL BINDER. NO SIGN OF DISCOMFORT. ON AIR MATTRESS. NO FAMILY VISITED TODAY. NO SOB.
--- NOTE | 2019-04-20 19:45 | NUR ---
PT. AWAKE, ALERT, 30 DEGREE ANGLE IN BED. UNABLE TO MAKE NEEDS KNOWN. SPEECH INCOMPRERHENSIBLE, GARBLED. HX OF HEMMORHAGIC STROKE W/ RESIDUAL LT. SIDED WEAKNESS. HX OF LT. CRANIOTOMY, LARGE SOFT OF LT. PARIETAL SCALP SURGICALLY REMOVED FROM SURGERY. BREATH SOUNDS CLEAR THROUGHOUT LUNG MIMS, RESP. EVEN, UNLABORED. NO SOB NOTED. PT. ON RA. ABD. SOFT AND FLAT, BOWEL SOUNDS ACTIVE. PEG TUBE IN-SITU W/ TUBE FEEDING AT 50CC/HR. NO RESIDUAL NOTED AT THIS TIME. PEDAL PULSES MODERATE. IVF NS AT 100CC/HR TO RFA. FREQUENT ROUNDS PLANNED, BED LOW LAYING.
[2019-04-20 20:27] VITALS: BP 115/88
--- NOTE | 2019-04-21 01:35 | NUR ---
PT. AWAKE AND RESTLESS AT THIS TIME. ATTEMPTING TO BITE IV TUBING, REACHING FOR HIS PEG TUBE AND TRYING TO PULL AT IT. ALL TUBINGS AND LINES, COVERED, "HIDDEN" THUS MAKING IT MORE DIFFICULT FOR HIM TO REMOVE LINES. PRN DOSE OF ATIVAN ALSO GIVEN VIA G-TUBE. WILL CONTINUE TO MONITOR PT.
--- NOTE | 2019-04-21 06:07 | NUR ---
PT. SLEEPING AT THIS TIME. TOLERATED TF THROUGHOUT THE NIGHT, NO RESIDUAL NOTED. IVF INFUSING WELL TO RFA. SITE INTACT. PEG TUBE IN-SITU. BED LOW LAYING, PT. WITHIN VIEW OF NURSES' STATION. WILL ENDORSE PT. CARE TO INCOMING NURSE.
[2019-04-21 06:45] VITALS: BP 93/53
--- NOTE | 2019-04-21 07:38 | NUR ---
REPORT TAKEN FROM GUEST ATTENDANT NURSE AT THE BEDSIDE, PT OBSERVED TO PT MILDLY AGGITATED AT THIS TIME. WILL CONTINUE TO MONITOR.
[2019-04-21 08:17] LABS: CALCIUM 8.5 mg/dL (8.5-10.1); CARBON DIOXIDE 23.8 mmol/L (21-32); CHLORIDE SERUM 112 mmol/L (98-107); CREATININE SERUM 0.4 mg/dL (0.7-1.3); GFR1 > 60 mL/min; GLUCOSE SERUM 88 mg/dL (74-106); POTASSIUM SERUM 3.5 mmol/L (3.5-5.1); SODIUM SERUM 144 mmol/L (136-145)
[2019-04-21 08:21] LABS: PLATELET COUNT 72 x10^3mcL (130-400); RED CELL DISTRIBUTION WIDTH 15.1 % (11.5-14.5)
[2019-04-21 10:00] VITALS: BP 113/72
--- NOTE | 2019-04-21 12:03 | NUR ---
Follow-up Nutrition Assessment: 248/A SHELLY MOSER MR Dx: ALOC, Hepatic encephalopathy PMHx: liver cirrhosis w/hepatic encephalopathy, polysubstance abuse, TIPS procedure with Portal Vein Occlusion and hemorrhagic stroke Labs: (04/21) BUN 5.0L, CREAT 0.4L, WBC 2.4L, (04/18) Ammonia 51H Meds: Colace, Zofran, Ativan, keppra, zofran Diet: (PEG) TF Jevity 1.2 @ 15ml/hr, goal 50ml/hr, FWF 150cc Q4H PO Intake: NPO Weights: (04/04) 56 kg, (04/03) 56.2 kg Skin: intact Balwinder: 13 I/Os: (04/21) 4400/ 2 (4398) Edema: none GI: Incontinent of stool, PEG tube Last BM: 04/20 RDN Visit (04/21): Patient was sleeping and Jevity 1.2 was running @ 50 ml/hr. FWF 150 ml Q4H. Per RN Dougie, patient is tolerating tube feeding with no residuals and no diarrhea. Per progress note (04/21) Pt has sitter at bedside, ammonia level decreased to 51, pt is more alert. Estimated Nutritional Needs Based on actual body weight 56.2 kg Energy: 3782-7366 kcal/d (30-35 kcal/kg)- liver cirrhosis Protein: 56.2- 67 g/d (1.0-1.2 g/kg)- cirrhosis Fluid: 6710-8580 ml/d (1 ml/kcal) or per doctor Nutrition Diagnosis 1. Inadequate enteral nutrition infusion related to current TF rate as evidenced by meeting < 80% estimated nutrient needs. (improved) 2. Increased nutrient needs related to increased metabolic demands as evidenced by liver cirrhosis. (ongoing) Intervention 1. Recommend continuing Jevity 1.2@ 50ml/hr. This will provide 1440 kcal, 66g protein to meet 85% estimated calorie and 98% estimated protein needs. Monitor/Evaluate Goal: Have pt meet at least 75% of estimated needs Monitor: TF intake/ tolerance, Labs, GI function F/U in 3-5 days as moderate risk 04/24-
--- NOTE | 2019-04-21 12:03 | NUR ---
1. Recommend continuing Jevity 1.2@ 50ml/hr. This will provide 1440 kcal, 66g protein to meet 85% estimated calorie and 98% estimated protein needs.
[2019-04-21 15:40] LABS: BAND NEUTROPHIL 0 % (0-10); SEGMENTED NEUTROPHILS 76 % (37-75)
[2019-04-21 15:41] LABS: ATYPICAL LYMPH 1 %; MONOCYTE 12 % (0-7); rbc morphology (normal/abnorm) ABNORMAL (NORMAL)
[2019-04-21 15:42] LABS: PLATELET MORPHOLOGY PLATELETS DECREASED
--- NOTE | 2019-04-21 16:08 | NUR ---
SCREEN FOR LOW BHARATI SCALE AT RISK PRESSURE ULCER INJURY PREVENTION INTERVENTIONS IN PLACE. -TURN AND REPOSITION PATIENT Q 2H OFFLOAD LEFT AND RIGHT HIPS -ASSESS AND MONITOR SKIN CONDITION DURING POSITION CHANGE -OFFLOAD BILATERAL HEELS BY PLACING PILLOWS UNDER CALVES AT ALL TIMES, UNLESS OTHERWISE CONTRAINDICATED -PRESSURE REDISTRIBUTION SURFACE THERAPY -KEEP SKIN CLEAN AND DRY AT ALL TIMES.
[2019-04-21 18:00] VITALS: BP 85/45
--- NOTE | 2019-04-21 19:04 | NUR ---
PT SON ARRIVED TO TAKE THE PT HOME, PT SIGNED DC PAPER WORK AND VERBALIZED UNDERSTANDING OF INSRTUCTIONS AND EDUCTION VIA HIS SON WHO TRANSLATED. PT ABLE TO AMBULATE OUT OF HOSPITAL, DECLINED WHEELCHAIR. IV DC'D FROM LEFT LATERAL AC WITH CATH INTACT, PT TOLERATED WELL, BLEEDING CONTROLED. DC'D IN THE CARE OF SON, PERLA GIRARD WALKED WITH PT AND SON OUT OF HOSPITAL.
--- NOTE | 2019-04-21 19:24 | NUR ---
REPORT GIVEN T0 COMPUTER ARCHITECT NURSE AT THE BEDSIDE, PT AGGITATED AT THIS TIME, PULLING AT LINES AND TRYING TO REMOVE MITTEN WITH TEETH. SITTER AT THE BEDSIDE FOR PT SAFETY. CARE ENDORSED
--- NOTE | 2019-04-21 20:00 | NUR ---
RECEIVED PT IN BED, ALERT AND AWAKE. AGGITATED AT THIS TIME, PULLING AT LINES AND TRYING TO REMOVE MITTEN WITH HIS TEETH. UNBLE TO FOLLOW COMMANDS. SITTER AT THE BEDSIDE FOR PT SAFETY. RESP. EVEN AND UNLABORED. ON ROOM AIR, NO ACUTE DISTRESS NOTED.IVF, NS AT 100ML/HR, INTACT AND INFUSING VIA RFA, SITE CLEAR. ON GT FEEDING, JEVITY 1.2 AT 50ML/HR, KANDACE. WELL. MIN. RESIDUAL NOTED. INCONT. CLEANED AND KEPT COMFORTABLE. WILL CONTINUE TO MONITOR.
[2019-04-21 20:51] VITALS: BP 119/51
--- NOTE | 2019-04-21 21:11 | NUR ---
ATIVAN GIVEN FOR AGITATION ORDERED. WILL CONTINUE TO MONITOR.
--- NOTE | 2019-04-22 00:13 | NUR ---
PT IS RESTING QUIETLY IN BED, WITH EYES CLOSED. RESP. EVEN AND UNLABORED. ON ROOM AIR, NO ACUTE DISTRESS NOTED. REMAINS ON GT FEEDING, KANDACE. WELL. IVF INTACT AND INFUSING WELL, SITE CLEAR. SITTER AT THE BEDSIDE FOR PT,S SAFETY. WILL CONTINUE TO MONITOR.
[2019-04-22 05:18] VITALS: BP 111/70
--- NOTE | 2019-04-22 06:00 | NUR ---
ANXIOUS AT TIMES, PULLS AND BITES TUBING, UNABLE TO MAKE NEEDS KNOWN. NEEDS ANTICIPATED. ALL NEEDS ATTENDED TO. SITTER AT THE BEDSIDE FOR PT,S SAFETY. TURNED AND REPOSITIONED FOR COMFORT. AFEBRILE AND VITAL SIGNS STABLE. IVF INTACT AND INFUSING WELL, SITE CLEAR. KANDACE. GT FEEDING, MIN. RESIDUAL NOTED. INCONT. OF URINE, NO BM DURING THE NIGHT, WILL CONTINUE TO MONITOR.
[2019-04-22 06:33] LABS: PLATELET COUNT 69 x10^3mcL (130-400); RED CELL DISTRIBUTION WIDTH 15.3 % (11.5-14.5)
--- NOTE | 2019-04-22 07:00 | NUR ---
RECEIVED PATIENT FROM ASSISTANT SHIFT SUPERVISOR NURSE. PATIENT IS AWAKE, ALERT AND CONFUSED. SEIZURE AND ASPIRATION PREC IN PLACE. ON ROOM AIR, RESP E/U. C;LEAN AND DRY AT THIS TIME. G-TUBE FEEDING INFUSING WELL AT 50CC/HR. IV NOTED TO RIGHT FOREARM, SITE INTACT, FREE OF ERYTHEMA. SITTER AT BEDSIDE FOR SAFETY. CALL LIGHT WITHIN EASY REACH. FAL PREC IN PLACE. WILL CONTINUE PLAN OF CARE.
[2019-04-22 09:00] VITALS: BP 120/78
[2019-04-22 11:02] LABS: SEGMENTED NEUTROPHILS 28 % (37-75)
[2019-04-22 11:03] LABS: ATYPICAL LYMPH 0 %; BAND NEUTROPHIL 0 % (0-10); BASOPHIL 1 % (0-2); BLAST 0 % (0); METAMYELOCTE 0 % (0-2); MONOCYTE 12 % (0-7); MYELOCYTE 0 % (0-2); PROMYELOCYTE 0 % (0-0); rbc morphology (normal/abnorm) ABNORMAL (NORMAL)
[2019-04-22 11:04] LABS: PLATELET MORPHOLOGY PLATELETS DECREASED
--- NOTE | 2019-04-22 14:50 | NUR ---
PATIENT AGITATED AT THIS TIME. ATTEPTING TO PULL OUT IV LINE AND G-TUBE. PATIENT MEDICATED WITH ATIVAN ORDERED. SEE EMAR.
--- NOTE | 2019-04-22 16:09 | NUR ---
PATIENT RESTING EASY. NO S/S AGITATION. WILL CONTINUE TO MONITOR.
--- NOTE | 2019-04-22 19:21 | NUR ---
PATIENT IS RESTING EASY WITH NO S/S PAIN OR DISCOMFORT. TUBE FEEDING REMAINS INFUSING WELL TO G-TUBE AT 50CC/HR. HOB ELEVATED. REPORT GIVEN TO SANDWICH MACHINE OPERATOR NURSE ELPIDIO ALVARADO.
--- NOTE | 2019-04-22 20:00 | NUR ---
RECEIVED PT IN BED, AWAKE, ALERT AND CONFUSED. WITH GARBLED SPEECH, CALM AT THIS TIME. FAMILY MEMBER AT THE BEDSIDE.VISITING. UNABLE TO FOLLOW COMMANDS. RESP.E/U. ON ROOM AIR. IVF, NS AT 100ML/HR , INTACT AND INFUSING VIA RFA, SITE CLEAR. REMAINS ON GT FEEDING , JEVITY 1.2 AT 50ML/HR, KANDACE. WELL, MIN. RESIDUAL NOTED AT THIS TIME. ASP. PREC. MAINTAINED. CLEANED AND REPOSITIONED.BILAT. HEEL PROTECTORS IN PLACE. SITTER AT THE BEDSIDE FOR PT,S SAFETY. WILL CONTINUE TO MONITOR.
[2019-04-22 21:41] VITALS: BP 88/49
--- NOTE | 2019-04-22 23:35 | NUR ---
TURNED AND REPOSITIONED FOR COMFORT.ON GT FEEDING, KANDACE. WELL. WILL CONTINUE TO MONITOR.
--- NOTE | 2019-04-23 02:45 | NUR ---
EYES CLOSED, APPEARS ASLEEP, EASILY AROUSABLE. RESP. EVEN AND UNLABORED. NO ACUTE DISTRESS NOTED. SITTER AT THE BEDSIDE FOR PT,S SAFETY.
[2019-04-23 04:56] VITALS: BP 142/75
--- NOTE | 2019-04-23 06:40 | NUR ---
AFEBRILE AND VITAL SIGNS STABLE. DUE MEDS GIVEN ORDERED. ANXIOUS AT TIMES, ATTEMPTING TO PULL OUT TUBES , ATIVAN GIVEN ORDERED.KANDACE. GT FEEDING WELL, ASP. PREC. MAINTAINED.HAD X1 LG LOOSE BROWNISH COLOR BM . KEPT CLEAN AND COMFORTABLE.SITTER AT THE BEDSIDE FOR PT,S SAFETY.NO SEIZURE ACTIVITY NOTED. ALL NEEDS ATTENDED TO. WILL ENDORSE TO INCOMING NURSE.
--- NOTE | 2019-04-23 07:19 | NUR ---
REPORT TAKEN FROM MACHINE DYER NURSE AT THE BEDSIDE, PT RESTING AT THIS TIME, NO AGGITATION OBSERVED, EYES CLOSED, NON-VERABL, CHEST RISE AND FALL OBSERVED, WILL CONTINUE TO MONITOR.
[2019-04-23 11:38] VITALS: BP 102/75
--- NOTE | 2019-04-23 14:56 | NUR ---
PT TOOK OFF GLOVE OVER HAND, WILL CONTINUE TO MONITOR PT WITHOUT GLOVE. RESTING AT THIS TIME.
[2019-04-23 17:37] VITALS: BP 100/56
--- NOTE | 2019-04-23 17:55 | NUR ---
PT GIVEN TYLENOL 650MG VIA PEG TUBE FOR POSSIBLE LEFT SHOULDER PAIN, PT REACHING FOR LEFT SHOULDER WHICH IS SWOLLEN BUT NON TENDER TO THE TOUCH AT THIS TIME. SWELLING HAS NOT CHANGED FOR SEVERAL WEEKS NOW PER DAILY ASSESSMENT DOCUMENTATION. RANGE OF MOTION IS LIMITED AT THE SHOULDER JOINT, ACTIVE AND PASSIVE FLEXION OF LEFT ELBOW PRESENT AT THIS TIME, WILL CONTINUE TO MONITOR.
--- NOTE | 2019-04-23 18:51 | NUR ---
PT RESTING AT THIS TIME, TOLERTED TREATMENT WELL, JEVITY 1.2 AT 50ML/H RUNNING TO PEG TUBE, NS AT 100ML/H TO RIGHT FA RUNNING. PT IN NAD, WILL REPORT TO ABE TEACHER NURSE AND ENDORSE CARE.
--- NOTE | 2019-04-23 20:00 | NUR ---
PT RESTING WITH EYES CLOSED. EASILY AROUSABLE WITH VERBAL STIMULI. BREATH SOUNDS CLEAR. BREATHING EVEN AND UNLABORED ON ROOM AIR. BOWEL SOUNDS ACTIVE. PEG TUBE NOTED ON THE ABDOMEN WITH TUBE FEEDING ON JEVITY AT 50 ML/HR WITH A FLUSH OF WATER 150 ML EVERY 4 HOURS. NO RESIDUAL OUTPUT NOTED. LEFT SIDE WEAKNESS NOTED WITH EDEMA NOTED ON LUE. IV INTACT ON THE RIGHT FOREARM INFUSING WITH NS AT 100 ML/HR. ON AIR MATTRESS. MADE PT COMFORTABLE. PLACED CALL LIGHT WITH IN REACH. WILL CONTINUE TO MONITOR.
[2019-04-23 23:00] VITALS: BP 91/49
--- NOTE | 2019-04-23 23:12 | NUR ---
PT BLOOD PRESSURE IS LOW. HIGH BP AFTER A COUPLE ATTEMPTS IS 91/49, MAP 64, HR 62. DR. GONZALEZ NOTIFED. NEW ORDERS GIVEN AND CARRIED OUT. WILL CONTINUE TO MONITOR.
--- NOTE | 2019-04-23 23:35 | NUR ---
PT ON BOLUS OF NS FOR LOW BP. PT TOLERATING IT WELL. WILL CONTINUE TO MONITOR.
[2019-04-24 00:57] VITALS: BP 122/66
--- NOTE | 2019-04-24 00:57 | NUR ---
PATIENTS BP 122/66, MAP 80, HR 97. AFTER THE BOLUS. PT WITH NO DISTRESS AND DISCOMFORT NOTED. WILL CONTINUE TO MONITOR.
[2019-04-24 05:15] VITALS: BP 143/90
[2019-04-24 07:23] VITALS: BP 117/74
--- NOTE | 2019-04-24 07:29 | NUR ---
ASSUMED CARE OF PATIENT. PATIENT SEEN SLEEPING THIS MORNING. NO APPARENT DISTRESS OR DISCOMFORT NOTED. IV ON RFA PATENT AND INFUSING 100ML/HR NS. GT TUBE INTACT, JEVITY AT 50ML/HR WITH 150 ML FLUSH EVERY 4 HOURS. WILL CONTINUE TO MONITOR.
--- NOTE | 2019-04-24 09:35 | NUR ---
PATIENT IV FOUND D/C. NEW 22G PLACED ON LFA, PATENT AND INTACT. PATIENT FOUND SATURATED IN URINE. ADL CARE PROVIDED.
--- NOTE | 2019-04-24 10:52 | NUR ---
Follow-up Nutrition Assessment: 248/A SHELLY MOSER MR Dx: ALOC, Hepatic encephalopathy PMHx: liver cirrhosis w/hepatic encephalopathy, polysubstance abuse, TIPS procedure with Portal Vein Occlusion and hemorrhagic stroke Labs: (04/21) BUN 5.0L, CREAT 0.4L, WBC 2.4L, (04/23) Ammonia 112H Meds: Colace, Zofran, Ativan, keppra Diet: (PEG) TF Jevity 1.2 @ 15ml/hr, goal 50ml/hr, FWF 150cc Q4H PO Intake: NPO Weights: (04/04) 56 kg, (04/03) 56.2 kg Skin: intact (heel protectors for preventative care) Balwinder: 12 I/Os: (04/23) 4500/ output not documented Edema: none GI: Incontinent of stool, PEG tube Last BM: 04/22 RDN Visit (04/24): Patient was sleeping and Jevity 1.2 was running @ 50 ml/hr. FWF 150 ml Q4H. Per ELPIDIO [place]os[place], patient is tolerating tube feeding with no residuals and no diarrhea or vomiting. Per bed huddles, Pt is waiting for care home bed placement. Estimated Nutritional Needs Based on actual body weight 56.2 kg Energy: 1456-7790 kcal/d (30-35 kcal/kg)- liver cirrhosis Protein: 56.2- 67 g/d (1.0-1.2 g/kg)- cirrhosis Fluid: 4536-3265 ml/d (1 ml/kcal) or per doctor Nutrition Diagnosis 1. Increased nutrient needs related to increased metabolic demands as evidenced by liver cirrhosis. (ongoing) Intervention 1. Recommend continuing Jevity 1.2@ 50ml/hr. This will provide 1440 kcal, 66g protein to meet 85% estimated calorie and 98% estimated protein needs. Monitor/Evaluate Goal: Have pt meet at least 75% of estimated needs Monitor: TF intake/ tolerance, Labs, GI function F/U in 7 days as low risk 05/01
--- NOTE | 2019-04-24 10:53 | NUR ---
1. Recommend continuing Jevity 1.2@ 50ml/hr. This will provide 1440 kcal, 66g protein to meet 85% estimated calorie and 98% estimated protein needs.
--- NOTE | 2019-04-24 10:55 | NUR ---
PATIENT HEARD MOANING. ADL CARE AND REPOSITIONING PROVIDED. CONTINUES TO MOAN.
--- NOTE | 2019-04-24 10:55 | NUR ---
IVF D/C PER ORDERS.
--- NOTE | 2019-04-24 11:05 | NUR ---
PRN ATIVAN PROVIDED. CONTINUES TO MOAN.
--- NOTE | 2019-04-24 13:02 | NUR ---
SEEN RESTING IN BED. IV AND GTUBE REMAIN INTACT. NO MOANING AT THIS TIME.
--- NOTE | 2019-04-24 16:18 | NUR ---
PATIENT CONTINUES TO GRAB AT GTUBE AND PULLING OFF ABDOMINAL BAND.
--- NOTE | 2019-04-24 17:21 | NUR ---
PRN ATIVAN PROVIDED FOR MOANING AND INCREASED AGITATION, SEEN PULLING APART ABDOMINAL BINDING. PATIENT ADL CARE PROVIDED. SEEN TRYING TO PULL OFF HEEL PROTECTORS. REDIRECTION UNSUCCESSFUL.
[2019-04-24 17:39] VITALS: BP 113/71
--- NOTE | 2019-04-24 17:43 | NUR ---
PATIENT CONTINUES TO BE NONCOMPLIANT WITH HEEL PROTECTERS.
--- NOTE | 2019-04-24 18:58 | NUR ---
PATIENT SEEN RESTING IN BED WITH NO APPARENT DISTRESS OR DISCOMFORT. WILL ENDORSE TO ONCOMING RN.
--- NOTE | 2019-04-24 19:00 | NUR ---
RECEIVED PT FROM DAY SHIFT RN. PT SEEN LAYING IN BED MOANING AWAKE/ALERT BUT NOT ORIENTED TO PERSON PLACE OR TIME. PT CURRENTLY PULLING AT ABD BINDER AND SEEMS NONCOMPLIANT WITH PLAN OF CARE. PT IS NONVERBAL. THERE ARE NO SIGNS OR SYMPTOMS OF RESPIRATORY DISTRESS. BREATHING IS EVEN AND UNLABORED. JEVITY 1.2 RUNNING AT 5OML/HR. 22 G IV NOTED TO THE RFA. G TUBE DRESSING CDI. SAFETY MEASURES ARE IN PLACE. BED IS IN THE LOWEST POSITION. WILL CONTINUE TO MONITOR.
[2019-04-24 20:28] VITALS: BP 123/72
--- NOTE | 2019-04-24 21:40 | NUR ---
CHANGED PT TUBE FEEDING. PT RESTING IN BED WITH EYES CLOSED. TOLERATED PROCEDURE WELL. FAMILY AT BEDSIDE.
--- NOTE | 2019-04-25 00:13 | NUR ---
CHANGED PT. HAVE BEEN TURNING Q2H. PT TOLERATING WELL.
--- NOTE | 2019-04-25 00:46 | NUR ---
ASSUMED CARE OF PATIETN AT THIS TIME. PATIENT'S EYES ARE CLOSED, BREATHS EVEN. MOTHER AT BEDSIDE. IV SALINE LOCKED. HEEL RAISERS IN PLACE, SEIZURE PRECAUTIONS IN PLACE, FALL RISK PRECAUTIONS IN PLACE. BED LOCKED AND IN LOWEST POSITION.
--- NOTE | 2019-04-25 03:00 | NUR ---
PATIENT URINATED. CHUCKS CHANGED AND PATIENT CLEANED AND REPOSITIONED TO RIGHT SIGHT. PRESSURE POINTS SUPPORTED WITH PILLOWS.
--- NOTE | 2019-04-25 03:04 | NUR ---
PATIENT GIVEN ATIVAN PER EMAR FOR RESTLESSNESS AND ANXIETY.
--- NOTE | 2019-04-25 03:34 | NUR ---
PATIENT IS ASLEEP, EYES CLOSED, BREATHS EVEN. NO DISTRESS NOTED.
[2019-04-25 06:01] VITALS: BP 126/72
--- NOTE | 2019-04-25 06:37 | NUR ---
PATIENT WAS GIVEN MORNING MEDS, REMAINS ASLEEP, EYES CLOSED BREATHS EVEN. MOTHER REMAINS AT BEDSIDE. G TUBE FEEDING INFUSING AT 50, GASTRIC RESIDUAL WAS 15MLS. IV SALINE LOCKED. SAFETY AND COMFORT MAINTAINED THROUGHOUT SHIFT. WILL ENDORSE CARE TO DAYSHIFT NURSE.
--- NOTE | 2019-04-25 07:00 | NUR ---
RECEIVED PATIENT FROM PHOTO ENGRAVER NURSE. PATIENT IS RESTING WITH BOTH EYES CLOSED, AROUSABLE. TRACE EDEMA NOTED TO LEFT ARM. ON ROOM AIR, BREATHING EVEN AND UNLABORED, NO S/S RESP DISTRESS. G-TUBE NOTED TO ABD WITH PROTECTIVE ABD BINDER IN PLACE. CLEAN AND DRY AT THIS TIME. IV NTOED TO RFA, SALINE LOCKED, FLUSHING WELL. NO S/S ERYTHEMA. CALL LIGHT WITHIN EASY REACH. SEIZURE AND ASPIRATION PREC IN PLACE. WILL CONTINUE PLAN OF CARE.
[2019-04-25 08:41] VITALS: BP 104/74
--- NOTE | 2019-04-25 11:28 | NUR ---
FAMILY REQUESTING TO SPEAK WITH ALUMINUM POURER DANIEL. ALUMINUM POURER ANTONIETTA AWARE AND TO COME AND SPEAK WITH FAMILY. PER FAMILY CASE MANAGEMENT DISCUSSED HOSPICE OPTIONS. ALUMINUM POURER ANTONIETTA AWARE AND TO SPEAK WITH FAMILY REGARDING PATIENTS PLAN OF CARE.
--- NOTE | 2019-04-25 11:31 | NUR ---
CITY EDITOR DANIEL AT BEDSIDE TO DISCUSS PLAN OF CARE WITH PATIENT AND FAMILY.
--- NOTE | 2019-04-25 14:34 | NUR ---
JAGJIT MANE AWARE OF NO LABS BEING DRAWN TODAY. NO FURTHER ORDERS AT THIS TIME.
[2019-04-25 17:29] VITALS: BP 104/62
--- NOTE | 2019-04-25 17:47 | NUR ---
SPEECH THERAPY AT BEDSIDE FOR SWALLOW EVAL.
--- NOTE | 2019-04-25 17:50 | NUR ---
PT WAS SEEN FOR DYSPHAGIA. PT WAS ABLE TO SAFELY SWALLOW PUREE DIET WITH HONEY THICK LIQUID. PT HAD MILD COUGH FOR NECTAR THICK LIQUID. PT IS NOT READY FOR TRIALS OF REGULAR DIET. RECOMMENDATION PUREE DIET WITH HONEY THICK LIQUID FOR ORAL GRATIFICATION ONLY. SMALL BITES AND SIPS ONLY.
--- NOTE | 2019-04-25 17:59 | NUR ---
TUBE FEEDING HUNG AT THIS TIME JEVITY 1.2 AT 50CC/HR WITH 150CC FWF Q4H. RESIDUAL <5 REPLACED. PATIENT TOLERATING TF WELL.
--- NOTE | 2019-04-25 18:52 | NUR ---
PATIENT RESTING EASY WITH FAMILY AT BEDSIDE. TF REMAINS INFUSING WELL. HOB ELEVATED. IV SITE REMAINS INTACT. FALL PREC IN PLACE. PATIENT CARE TO BE ENDORSED TO BARGE CAPTAIN NURSE.
--- NOTE | 2019-04-25 19:33 | NUR ---
RECEIVED PT FROM PREVIOUS SHIFT. RESTING WITH EYES CLOSED. BREATHING E/U. NO INDICATIONS OF PAIN NOTED. RUE WRAPPED WITH ELIZABETH BANDAGE. JEVITY FEEDING INFUSING AT 50ML/HR, GOAL RATE, PT TOLERATING WELL. ABD BINDER IN PLACE. NO S/S ACUTE DISTRESS. CALL LIGHT WITHIN REACH. MOTHER AT BEDSIDE. SAFETY MEASURES IN PLACE. WILL CONTINUE TO MONITOR.
[2019-04-25 20:18] VITALS: BP 142/72
[2019-04-25 23:21] VITALS: Ht 170.2 cm; Wt 56.0 kg
--- NOTE | 2019-04-26 00:32 | NUR ---
PT RESTING IN BED. NO S/S ACUTE DISTRESS. BREATHING E/U. NO INDICATIONS OF PAIN NOTED. CALL LIGHT WITHIN REACH. WILL CONTINUE TO MONITOR.
[2019-04-26 05:43] VITALS: BP 98/62
--- NOTE | 2019-04-26 06:01 | NUR ---
PT HAD RESTFUL NIGHT. NO S/S ACUTE DISTRESS. NO INDICATIONS OF PAIN. PT COOPERATIVE WITH CARE. ALL NEEDS MET AND ATTENDED TO. NO CHANGES OVERNIGHT. PT TOLERATED MEDICATION ADMINISTRATION WELL. CALL LIGHT WITHIN REACH. SAFETY MEASURES IN PLACE. WILL ENDORSE CARE TO ONCOMING SHIFT.
--- NOTE | 2019-04-26 07:30 | NUR ---
PT ENDORSE TO ME THIS MORNING. RESTING IN BED WITH EYES CLOSED. EASILY AROUSABLE. BREATHING EVEN AND UNLABORED ON ACUTE RESP DISTRESS OR SOB NOTED. MEDSURG, NO SIGN OF CP OR PRESSURE. RUE WRAPPED WITH ELIZABETH BANDAGE. TUBE FEEDING INFUSING (JEVITY) AT 50ML/HR AT GOAL/ TOLERATING WELL. ABD BINDER INPLACE. ON AIR MATTRESS/ HEEL PROTECTOR APPLIED TO [place] EXT. IV TO THE RFA INTACT AND PATENT/ HEPLOCKED.CALL LIGHT IN REACH. BED IN LOW POSITION /BY NURSES STATION. BED ALARM ON. WILL CONTINUE TO MONITOR.
[2019-04-26 08:14] VITALS: BP 115/68
--- NOTE | 2019-04-26 09:04 | NUR ---
RESIDUAL 5ML/ REPLACED.
--- NOTE | 2019-04-26 12:19 | NUR ---
PT IS ANXIOUS TRYING TO TAKE IV AND G-TUBE OUT, MEDICATED PER EMAR.
--- NOTE | 2019-04-26 17:20 | NUR ---
TUBE-FEEDING CHANGED. PT IS CALM AND COOPERATIVE AT THIS TIME. BREATHING EVEN AND UNLABORED ON RA, NO ACUTE RESP DISTRESS OR SOB NOTED. NO SIGNS OF CP OR PRESSURE NOTED. CALL LIGHT IN REACH/ BED IN LOW POSITION. WILL CONTINUE TO MONITOR.
[2019-04-26 17:26] VITALS: BP 95/48
--- NOTE | 2019-04-26 18:20 | NUR ---
PT LAYING IN BED HOB ELEVATED 30-40 DEG. TUBE-FEEDING REMAINS AT 50ML/HR TOLERATING WELL. BREATHING EVEN AND UNLABORED ON RA, NO ACUTE RESP DISTRESS OR SOB NOTED. NO SIGNS OF CP OR PRESSURE. WILL CONTINUE TO MONITOR.
--- NOTE | 2019-04-26 19:00 | NUR ---
NO ACUTE CHANGES AT THIS TIME, NO ACUTE RESP DISTRESS OR SOB NOTED. WILL ENDORSE TO INCOMING RN.
--- NOTE | 2019-04-26 19:32 | NUR ---
RECEIVED PT FROM PREVIOUS SHIFT. NONVERBAL. UNABLE TO MAKE NEEDS KNOWN. BREATHING E/U. NO INDICATIONS OF PAIN NOTED. RUE WRAPPED WITH ELIZABETH BANDAGE. TRACE EDEMA NOTED TO LUE. JEVITY FEEDING INFUSING AT 50ML/HR WHICH IS GOAL RATE. PT TOLERATING WELL. ABD BINDER IN PLACE. NO S/S ACUTE DISTRESS. CALL LIGHT WITHIN REACH. COUSIN AT BEDSIDE, STATES PT HAS BEEN SLEEPING ALL DAY. SAFETY MEASURES IN PLACE. WILL CONTINUE TO MONITOR.
[2019-04-26 19:37] VITALS: BP 110/59
--- NOTE | 2019-04-26 22:05 | NUR ---
PT CLEANED AND REPOSITIONED. PT TOLERATED MEDICATION ADMINISTRATION WELL. NO S/S ACUTE DISTRESS.
--- NOTE | 2019-04-27 00:25 | NUR ---
PT RESTING IN BED COMFORTABLY. BREATHING E/U. NO S/S ACUTE DISTRESS. NO INDICATIONS OF PAIN NOTED. SAFETY MEASURES IN PLACE. WILL CONTINUE TO MONITOR.
[2019-04-27 06:24] VITALS: BP 93/63
--- NOTE | 2019-04-27 06:25 | NUR ---
PT LINENS CHANGED AND PT CLEANED. REPOSITIONED FOR COMFORT. PT TOLERATED WELL. NO S/S ACUTE DISTRESS. ALL NEEDS MET AND ATTENDED TO. NO CHANGES OVERNIGHT. RUE REMAINS WRAPPED, SALINE-LOCKED. SAFETY MEASURES IN PLACE. WILL ENDORSE CARE TO ONCOMING SHIFT.
--- NOTE | 2019-04-27 07:12 | NUR ---
RECEIVED PT FROM CONSULTING ENGINEER NURSE. PT IN BED SLEEPING, AROUSABLE, RESP E/U ON RA. NO ACUTE DISTRESS NOTED. SALIN LOCK TO LFA W/ NO ERYTHEMA OR EDEMA. G-TUBE IN PLACE SECURED W/ ABD BINDER, RECEIVING JEVITY 1.2 AT 50 ML/HR INFUSING WELL. BED IN LOWEST POSITION AND CALL LIGHT WITHIN REACH. SITTER AT BEDSIDE. WILL CONTINUE TO MONITOR.
[2019-04-27 09:00] VITALS: BP 113/72
--- NOTE | 2019-04-27 12:55 | NUR ---
PT IN BED SLEEPING, AROUSABLE, RESP E/U ON RA. SLIGHTLY AGITATED WHEN ASSESSING G-TUBE. GASTRIC RESIDUAL >60 CC, TUBE FEEDING HELD AT THIS TIME. BED IN LOWEST POSITION, SIDE RAILS UP X4, SITTER AT BEDSIDE. WILL CONTINUE TO MONITOR.
[2019-04-27 15:52] VITALS: BP 109/64
--- NOTE | 2019-04-27 17:30 | NUR ---
PT SLEEPING IN BED, AROUSABLE, RESP E/U ON RA. GASTRIC RESIDUAL OF 200CC NOTED AT THIS TIME. RESIDUAL REPLACED AND TUBE FEEDING LINES CHANGED, JEVITY 1.2 RESUMED AT GOAL RATE OF 50ML/HR, INFUSING WELL. BED IN LOWEST POSITION, SIDE RAILS UP X4, SITTER AT BEDSIDE. WILL ENDORSE TO ONCOMING NURSE.
--- NOTE | 2019-04-27 20:00 | NUR ---
RECEIVED PT IN BED, RESTING QUIETLY AT THIS TIME WITH EYES CLOSED, APPEARS ASLEEP, EASILY AWAKENED. CONFUSED. UNABLE TO FOLLOW COMMANDS. RESP. EVEN AND UNLABORED. ON ROOM AIR, NO ACUTE DISTRESS NOTED. AFEBRILE AND VITAL SIGNS STABLE. ON SEIZURE PREC. NO ACTIVITY NOTED AT THIS TIME. HL TO RFA, INTACT AND PATENT. ON GT FEEDING, JEVITY 1.2 AT 50ML/HR, KANDACE. WELL. WILL MAINTAIN ASP. PREC. INCONT. OF URINE, CLEANED AND KEPT COMFORTABLE.SITTER AT THE BEDSIDE FOR SAFETY. WILL CONTINUE TO MONITOR.
[2019-04-27 20:44] VITALS: BP 102/48
--- NOTE | 2019-04-28 02:08 | NUR ---
TURNED AND REPOSITIONED Q2HRS AND PRN. CALM AT THIS TIME,RESTING, WITH EYES CLOSED, APPEARS ASLEEP, EASILY AROUSABLE. NO ACUTE DISTRESS NOTED. KANDACE. GT FEEDING. SITTER AT THE BEDSIDE FOR SAFETY. WILL CONTINUE TO MONITOR.
[2019-04-28 04:30] VITALS: BP 127/72
--- NOTE | 2019-04-28 06:14 | NUR ---
AFEBRILE AND VITAL SIGNS STABLE. DUE MEDS GIVEN ORDERED,KANDACE. WELL. RESP. EVEN AND UNLABORED. NO ACUTE DISTRESS NOTED. ON GT FEEDING, JEVITY 1.2 AT 50ML/HR, KANDACE. WELL. MIN. RESIDUAL NOTED. ASP. PREC. MAINTAINED. HAD X1 MOD. SOFT BM. INCONT. , CLEANED AND KEPT COMFORTABLE. TURNED AND REPOSITIONED Q2HRS AND PRN. ALL NEEDS ATTENDED TO. SITTER AT THE BEDSIDE FOR SAFETY. WILL CONTINUE TO MONITOR.
[2019-04-28 06:29] LABS: CALCIUM 9.1 mg/dL (8.5-10.1); CHLORIDE SERUM 115 mmol/L (98-107); CREATININE SERUM 0.5 mg/dL (0.7-1.3); GFR1 > 60 mL/min; GLUCOSE SERUM 92 mg/dL (74-106); POTASSIUM SERUM 3.4 mmol/L (3.5-5.1); SODIUM SERUM 151 mmol/L (136-145)
[2019-04-28 07:00] LABS: PLATELET COUNT 84 x10^3mcL (130-400); RED CELL DISTRIBUTION WIDTH 15.9 % (11.5-14.5)
--- NOTE | 2019-04-28 07:15 | NUR ---
RECEIVED PT FROM SHIFT NURSE ASLEEP BUT AROUSABLE. APPEARS IN NO ACUTE DISTRESS. GT FEEDING INFUSING AND TOLERATING WELL. HEPLOCK PATENT. BED IN LOW POSITION. CALL LIGHT WITHIN REACH. WILL CONTINUE TO MONITOR.
[2019-04-28 07:38] VITALS: BP 126/76
--- NOTE | 2019-04-28 09:51 | NUR ---
PT ASLEEP BUT AROUSABLE. NO ACUTE DISTRESS NOTED. BED IN LOW POSITION. WILL CONTINUE TO MONITOR.
--- NOTE | 2019-04-28 12:18 | NUR ---
PT REMAINS ASLEEP. NO ACUTE DISTRESS NOTED. TOLERATING TUBE FEEDING WELL. WILL CONTINUE TO MONITOR.
[2019-04-28 14:28] LABS: BAND NEUTROPHIL 0 % (0-10); BASOPHIL 0 % (0-2); MONOCYTE 12 % (0-7); SEGMENTED NEUTROPHILS 80 % (37-75)
[2019-04-28 14:29] LABS: PLATELET MORPHOLOGY PLATELETS DECREASED
[2019-04-28 14:30] LABS: rbc morphology (normal/abnorm) ABNORMAL (NORMAL)
--- NOTE | 2019-04-28 14:58 | NUR ---
PT ASLEEP BUT AROUSABLE. FAMILY MEMBER AT BEDSIDE. WILL CONTINUE TO MONITOR.
[2019-04-28 15:26] VITALS: BP 129/79
--- NOTE | 2019-04-28 18:06 | NUR ---
PT ASLEEP BUT AROUSABLE. NO ACUTE DISTRESS NOTED. TOLERATING GTUBE FEEDING WELL. BILATERAL HEEL PROTECTORS IN PLACE. HEPLOCK PATENT. FALL PRECAUTIONS IN PLACE. BED IN LOW POSITION. CALL LIGHT WITHIN REACH. WILL BE ENDORSED.
--- NOTE | 2019-04-28 19:54 | NUR ---
SHIFT REASSESSMENT DONE.PATIENT ALERT,CONFUSED,NON VERBAL.SZ PREC.BREATHING EASY.L SIDED GEN WEAKNESS.AIR MATTRESS.RFA HEPLOCK SECURED.WATCH CLOSELY BY NURSES.GT FEEDING,INFUSING,TOLERATING WELL.HEEL PROTECTOR IN PLACE.LFA TRACE EDEMA NOTED.REMAINS INCONTINENT.
[2019-04-28 21:17] VITALS: BP 98/57
--- NOTE | 2019-04-28 22:17 | NUR ---
ALL SCHEDULE MEDS GIVEN,ALSO PRN.PATIENT REMAINS A TOTAL CARE.
--- NOTE | 2019-04-29 04:16 | NUR ---
GT FEEDING NOT DUE FOR CHANHED,STILL A LOT IN THE BOTTLE,WILL RECHECK BY 7 AM,DUE MED AT 4 AM GIVEN.PATIENT REMAINS INCONTINENT B AND B,GOOD SKIN CARE PROVIDED,PRESSURE AREA,PILLOW REDISTRIBUTED,HEEL GUARD ORDERED.PATIENT GETS UNCOOPERATIVE AT TIMES.GOOD OR4AL CARE GIVEN,IV SITE INTACT.WATCH CLOSELY.SZ PRECAUTION MAINTAINED.
[2019-04-29 05:20] VITALS: BP 113/60
--- NOTE | 2019-04-29 06:22 | NUR ---
AM MEDS GIVEN,NO INCIDENT.WILL ENDORSE TO NEXT SHIFT.
--- NOTE | 2019-04-29 07:35 | NUR ---
RECEIVED PT FROM SOLDERING INSPECTOR. PT ASLEEP BUT AROUSABLE. PT ON ROOM AIR WITH NO RESP DISTRESS NOTED AT THIS TIME. LUNGS CTA. IV ACCESS RFA, C/D/I. SALINE LOCKED. FLUSHES WELL, COVERED AND SECURED. PT ON SEIZURE PRECAUTIONS. PT HAS GTUBE WITH JEVITY 1.2 AT 50ML/HR, NO GASTRIC RESIDUAL NOTED. HOB AT 35 DEGREES. ACTIVE BOWEL SOUNDS NOTED. PT HAS ABD BINDER, DRESSING TO GTUBE C/D/I. PT NOTED TO HAVE LEFT SIDED WEAKNESS. PT MONITORED CLOSELY. SAFETY MEASURES IN PLACE, BED LOW AND LOCKED.
[2019-04-29 09:14] VITALS: BP 112/61
--- NOTE | 2019-04-29 10:34 | NUR ---
PT CLEANED AND REPOSITIONED WITH DIRECTOR COMMUNICATIONS. PT INCONTINENT OF URINE. FAMILY AT BEDSIDE.
--- NOTE | 2019-04-29 11:41 | NUR ---
GASTRIC RESIDUAL CHECKED. 120 ML NOTED, FEEDING HELD. WILL RECHECK IN ONE HOUR.
--- NOTE | 2019-04-29 13:05 | NUR ---
GASTRIC RESIDUAL RECHECKED AT THIS TIME, 50 ML RESIDUAL NOTED AT THIS TIME. PT REPOSITIONED WITH LABORER TIN CAN. PT RESTING COMFORTABLY WITH NO ACUTE DISTRESS OR DISCOMFORT NOTED. SAFETY MAINTAINED.
--- NOTE | 2019-04-29 15:15 | NUR ---
PT LINENS/GOWN CHANGED WITH AUTO SUSPENSION AND STEERING MECHANIC. PT REPOSITIONED. SKIN INTACT. NO GASTRIC RESIDUAL NOTED AT THIS TIME. SAFETY MEASURES MAINTAINED.
--- NOTE | 2019-04-29 16:32 | NUR ---
LACTULOSE ADMINISTERED ORDERED. NO GASTRIC RESIDUAL NOTED. HOB AT 35 DEGREES. PT RESTING COMFORTABLY WITH NO ACUTE DISTRESS. SAFETY MEASURES MAINTAINED.
[2019-04-29 17:38] VITALS: BP 102/64
--- NOTE | 2019-04-29 18:43 | NUR ---
PT STABLE AT THIS TIME. PT CLOSELY MONITORED THROUGHOUT SHIFT. IV WITH SOME LEAKAGE NOTED. NEW IV TO BE PLACED. ALL NEEDS TENDED TO THROUGHOUT SHIFT. WILL CONTINUE TO MONITOR AND ENDORSE CARE TO [employer] ASSOC[employer]ATE [employer]LECULAR BIOLOGY. SAFETY MEASURES MAINTAINED.
--- NOTE | 2019-04-29 18:48 | NUR ---
NEW IV INSERTED. LEFT FA 22G. C/D/I. IV REMOVED FROM RIGHT FA WITH CATHETER INTACT.
--- NOTE | 2019-04-29 19:40 | NUR ---
REC'D PT FROM DAY NURSE. SZ PREC IN PLACE. PT RESTING IN BED. ASLEEP. OPENS EYES TO TACTILE STIMULI. UNABLE TO ASSESS ORIENTATION. PT DOES NOT FOLLOW COMMANDS. R SIDED SKULL DEFLATED. SZ PREC. R EYE CLOUDY. MED SURG, NO TELE. NO S/SX OF PAIN. NO EDEMA NOTED. ABD SOFT/ROUND. NO GRIMACE WITH PALPATION. TF INFUSING JEVITY 1.2 @ 50 ML/HR, 150 H2O FLUSH Q4. 25 ML RESIDUAL REPLACED. ABD BINDER IN PLACE. BOWEL AND BLADDER INCONTINENT. GENERALIZED WEAKNESS. REPOSITIONING Q2H. IV TO LFA FLUSHED AND PATENT, SITE WNL. CALL LIGHT WITHIN REACH, BED AT LOWEST POSITION, BED ALARM ON. WILL CONTINUE TO MONITOR.
[2019-04-29 21:13] VITALS: BP 108/71
--- NOTE | 2019-04-30 00:44 | NUR ---
PT RESTING IN BED WITH EYES CLOSED. NO SIGNS OF DISTRESS NOTED. BREATHING EVEN/UNLABORED ON RA. CALL LIGHT WITHIN REACH, BED AT LOWEST POSITION, BED ALARM ON. WILL CONTINUE TO MONITOR.
--- NOTE | 2019-04-30 05:48 | NUR ---
PT RESTING IN BED WITHE YES CLOSED. ASLEEP. OPENS EYES TO TACTILE STIMULI. PT HAS BEEN SLEEPING THE WHOLE SHIFT. TF INFUSING @ 50 ML/HR, 35 ML RESIDUAL REPLACED. ABD BINDER IN PLACE. PT HAS BEEN REPOSITIONED EVERY 2 HOURS. NO SIGNIFICANT CHANGES DURING SHIFT. CALL LIGHT WITHIN REACH, BED AT LOWEST POSITION, BED ALARM ON, SZ PREC IN PLACE. WILL ENDORSE TO DAY NURSE.
[2019-04-30 06:20] VITALS: BP 102/58
[2019-04-30 06:29] LABS: BASOPHIL % 0.4 % (0-2)
[2019-04-30 06:35] LABS: CALCIUM 8.5 mg/dL (8.5-10.1); CARBON DIOXIDE 31.7 mmol/L (21-32); CHLORIDE SERUM 113 mmol/L (98-107); CREATININE SERUM 0.7 mg/dL (0.7-1.3); GFR1 > 60 mL/min; GLUCOSE SERUM 113 mg/dL (74-106); MAGNESIUM 1.9 mg/dL (1.8-2.4); POTASSIUM SERUM 3.6 mmol/L (3.5-5.1); SODIUM SERUM 148 mmol/L (136-145)
[2019-04-30 07:20] LABS: PLATELET COUNT 70 x10^3mcL (130-400); RED CELL DISTRIBUTION WIDTH 15.9 % (11.5-14.5)
--- NOTE | 2019-04-30 07:30 | NUR ---
RECEIVED PATIENT IN BED WITH 1-1 SITTER AT BEDSIDE. PATIENT APPEARS TO BE RESTING WELL ON AIR MATTRESS. HEEL PROTECTORS ON PATIENT. HOB ELEVATED, G-TUBE FEEDING INFUSING WELL. ABD BINDER OVER G-TUBE TO PREVENT PATIENT FROM PULLING OUT TUBE. RESP EVEN AND UNLABORED ON ROOM AIR. LUE NOTED WITH 1+ EDEMA. HL PAENT. LEFT F/A. NO ACUTE DISTRESS NOTED. WILL CONTINUE TO MONITOR.
[2019-04-30 07:57] VITALS: BP 113/66
--- NOTE | 2019-04-30 12:58 | NUR ---
Follow-up Nutrition Assessment: 248/A SHELLY MOSER MR Dx: ALOC, Hepatic encephalopathy PMHx: liver cirrhosis w/hepatic encephalopathy, polysubstance abuse, TIPS procedure with Portal Vein Occlusion and hemorrhagic stroke Labs: (04/30) BUN 6.0L, WBC 3.3L, Ammonia 64H, BG 113H Meds: Colace, Zofran, Ativan, keppra Diet: (PEG) TF Jevity 1.2 @ 15ml/hr, goal 50ml/hr, FWF 150cc Q4H PO Intake: NPO Weights: (04/04) 56 kg, (04/03) 56.2 kg (04/30) bed scale 54.5 kg Skin: intact (heel protectors for preventative care) Balwinder: 13 I/Os: (04/23) 4500/ output not documented Edema: L hand edema noted GI: loose stool, on lactulose, PEG tube Last BM: 04/30 RDN Visit (04/30): Patient was sleeping and Jevity 1.2 was running @ 50 ml/hr. FWF 150 ml Q4H. Per RN Antonio, patient is tolerating tube feeding with 20 ml. Patient is currently having loose stools because of lactulose. Per progress note (04/29), pt is awaiting hospice eval. Per Bed huddles, patient will be going home Sunday. Patient has lost 4 lbs x 1 month since admission. Estimated Nutritional Needs Based on actual body weight 56.2 kg Energy: 9453-0914 kcal/d (30-35 kcal/kg)- liver cirrhosis Protein: 56.2- 67 g/d (1.0-1.2 g/kg)- cirrhosis Fluid: 9713-2977 ml/d (1 ml/kcal) or per doctor Nutrition Diagnosis 1. Increased nutrient needs related to increased metabolic demands as evidenced by liver cirrhosis. (ongoing) Intervention 1. Recommend continuing Jevity 1.2@ 50ml/hr. This will provide 1440 kcal, 66g protein to meet 85% estimated calorie and 98% estimated protein needs. Monitor/Evaluate Goal: Have pt meet at least 75% of estimated needs Monitor: TF intake/ tolerance, Labs, GI function F/U in 3-5 days as moderate risk 05/03-8
--- NOTE | 2019-04-30 12:59 | NUR ---
1. Recommend continuing Jevity 1.2@ 50ml/hr. This will provide 1440 kcal, 66g protein to meet 85% estimated calorie and 98% estimated protein needs.
--- NOTE | 2019-04-30 13:26 | NUR ---
PATIENT'S PLAN OF CARE WAS DISCUSSED AND REVIEWED WITH BOOSTER PUMP OPERATOR:JOE HERNANDEZ. I HAVE REVIEWED THE DATA COLLECTION BY BOOSTER PUMP OPERATOR (NAME):JOE HERNANDEZ. ENTERED ON (DATE/TIME):04/30/19 I CONCUR WITH THE DATA AND ANY EXCEPTIONS OR COMMENTS ARE LISTED BELOW:
--- NOTE | 2019-04-30 14:25 | NUR ---
PATIENT REMAINS IN BED, TEMP 101.2. TYLENOL GIVEN ORDERED AND COOLING MEASURES STARTED. WILL CONTINUE TO MONITOR.
--- NOTE | 2019-04-30 15:38 | NUR ---
PATIENT REMAINS IN BED, APPEARS TO BE RESTING WELL. TEMP RECHECK AFTER TYLENOL AND COOLING MEASURES STARTED AND IS NOW 99.6. NO ACUTE DISTRESS. G-TUBE FEEDING INFUSING, HOB ELEVATED FOR ASPIRATION PRECAUTIONS. WILL CONTINUE TO MONITOR.
[2019-04-30 17:12] VITALS: BP 97/58
--- NOTE | 2019-04-30 18:05 | NUR ---
PATIENT REMAINS IN BED. NO CHANGE IN CONDITION NOTED. PATIENT APPEARS TO BE RESTING WELL ON AIR MATTRESS. REPOSITIONED Q 2 HRS. OPENS EYE TO TACTILE STIMULI. NO ACUTE DISTRESS NOTED.
--- NOTE | 2019-04-30 19:10 | NUR ---
CARE ASSUMED FROM OUTGOING MARINE CARGO SURVEYOR. PT ASLEEP COMFORTABLY IN BED. NO ACUTE DISTRESS NOTED. EVEN AND UNLABORED RESPIRATIONS ON RA. IVL INTACT. TUBE FEEDING RUNNING JEVITY 1.2 AT 50ML/HR WITH 150ML FWF Q4HRS THROUGH PEG. SITTER AT BEDSIDE. HEEL PROTECTORS IN PLACE. BED IN LOWEST POSITION. AIR MATTRESS IN USE. SIDE RAILS UPX2. CALL LIGHT WITHIN REACH. WILL CONTINUE TO MONITOR.
[2019-04-30 20:40] VITALS: BP 89/52
--- NOTE | 2019-04-30 23:45 | NUR ---
MOVED PT TO ROOM 243B. ALL BELONGINGS ACCOUNTED FOR AND BROUGHT TO NEW ROOM. PT ASLEEP COMFORTABLY IN BED. NO ACUTE DISTRESS NOTED. EVEN AND UNLABORED RESPIRATIONS ON RA. IVL PATENT AND INTACT. PEG PATENT AND INTACT RUNNING TUBE FEEDING JEVITY 1.2 AT 50ML/HR WITH 150ML FWF Q4HRS. CEPHULAC GIVEN THROUGH PEG PER EMAR. PT TOLERATED WELL. BED IN LOWEST POSITION. AIR MATRESS IN USE. HEEL PROTECTOR IN PLACE. SIDE RAILS UPX2. CALL LIGHT WITHIN REACH. WILL CONTINUE TO MONITOR.
[2019-05-01 04:39] VITALS: BP 94/54
--- NOTE | 2019-05-01 06:53 | NUR ---
PT SLEPT COMFORTABLE THROUGHOUT THE NIGHT. NO ACUTE CHANGES NOTED. EVEN AND UNLABORED RESPIRATIONS ON RA. IVL PATENT AND INTACT. PEG PATENT AND INTACT RUNNING JEVITY 1.2 PER ORDER. ALL NEEDS TENDED TO AND MET. ALL SCHEDULED MEDICATIONS GIVEN. BED IN LOWEST POSITION. SZ PRECAUTION IN PLACE. AIR MATTRESS IN USE. SIDE RAILS UPX2. CALL LIGHT WITHIN REACH. WILL ENDORSE TO ONCOMING SHIFT.
--- NOTE | 2019-05-01 07:00 | NUR ---
RECEIVED PT FROM TRAINMASTER NURSE. PT IN BED SLEEPING, AROUSABLE, RESP E/U ON RA. NO ACUTE DISTRESS NOTED. SALINE LOCK TO LFA W/ NO ERYTHEMA OR EDEMA. PEG TUBE IN PLACE LLQ, SECURED W/ ABD BINDER. RECEIVING JEVITY 1.2 AT 50 ML/HR INFUSING WELL. BED IN LOWEST POSITION, PADDED SIDE RAILS UP X2, AIR MATTRESS IN PLACE, HEEL PROTECTOR TO R FOOT IN PLACE. SITTER AT BEDSIDE. WILL CONTINUE TO MONITOR.
[2019-05-01 08:22] VITALS: BP 137/94
[2019-05-01 08:30] VITALS: BP 90/57
--- NOTE | 2019-05-01 12:00 | NUR ---
PT IN BED SLEEPING, AROUSABLE, RESP E/U ON RA. GASTRIC RESIDUAL <5 ML AT THIS TIME. ADMINISTERED LACTULOSE ORDERED VIA PEG TUBE. JEVITY 1.2 CONTINUED AT GOAL RATE OF 50 ML/HR. BED IN LOWEST POSITION, PADDED SIDE RAILS UP X2, SITTER AT BEDSIDE. WILL CONTINUE TO MONITOR.
[2019-05-01 17:03] VITALS: BP 98/58
--- NOTE | 2019-05-01 18:53 | NUR ---
PT IN BED SLEEPING, AROUSABLE, MAKING MOANING NOISES BUT NO RESTLESSNESS OR ACUTE DISTRESS NOTED. BED IN LOWEST POSITION, PADDED SIDE RAILS UP X2, SITTER AT BEDSIDE. WILL ENDORSE TO ONCOMING NURSE.
--- NOTE | 2019-05-01 19:56 | NUR ---
PT'S IN BED DROWSY , LUNG SOUNDS CTA , ABD SOFT BS ACTIVE X4, PEG FEEDING INPLACE NO RESIDUAL NOTED, PT'S INCONTINENT OF B&B WILL KEEP PT CLEAN AND DRY AT ALL THE TIME , HL INTACT FLUSHING WELL .
[2019-05-01 21:13] VITALS: BP 91/53
--- NOTE | 2019-05-02 00:11 | NUR ---
PT'S IN BED WITH EYES CLOSED , GT PATENT NO RESIDUAL NOTED .
[2019-05-02 04:07] VITALS: BP 120/68
--- NOTE | 2019-05-02 06:30 | NUR ---
NO CHANGES OF CONDITION NOTED ALL DEU MEDS GIVEN NO REACTION NOTED, MULTIPLE LOOSE STOOL NOTED, KEPT PT CLEAN AND DRY AT ALL THE TIME , PEG PATENT NO RESIDUAL NOTED. ABD BINDER INPLACE FOR SAFETY .
--- NOTE | 2019-05-02 07:51 | NUR ---
PATIENT SLEEPING IN BED, AROUSABLE. PATIENT IS ON SEIZURE PRECAUTION. UNABLE TO ASSESS ORIENTATION. AIIR MATRESS IN PLACE, PATIENT REPOSITIONED, Q2HR OR PRN. HEEL PROTECTOR IN PLACE. IV TO LFA CDI & PATENT, NO S/S OF INFILTRATION. CALL LIGHT WITHIN REACH, BED IN LOW POSITION, WILL CONTINUE TO MONITOR FOR CHANGES.
[2019-05-02 07:59] VITALS: BP 99/56
--- NOTE | 2019-05-02 12:30 | NUR ---
PATIENT IS RESTING IN BED, NO ACUTE CHANGES NOTED. PATIENT IS CALM AND COOPERATIVE. NO RESPIRATORY DISTRESS NOTED, ON ROOM AIR. NO RESIDUAL NOTED. CALL LIGHT WITHIN PLACE,BED IN LOW POSITION, WILL CONTINUE TO MONITOR.
[2019-05-02 13:08] VITALS: BP 99/56
--- NOTE | 2019-05-02 14:20 | NUR ---
PATIENT WAS DISCHARGE HOME. PATIENT MOTHER POLLY AWARE OF PATIENT TRANSPORTATION. POLLY RECEIVED COPY OF DISCHARGE INSTRUCTIONS, PATIENT MOTHER UNDERSTANDS AND AGREES WITH D/C PLAN OF CARE & INSTRUCTIONS, INCLUDING FOLLOW UP WITH PCP & MEDICATIONS. COPY OF DISCHARGE INSTRUCTIONS WERE GIVEN TO EMT TO GIVE TO PATIENT MOTHER. IV TO LEFT HAND REMOVED, CATH INTACT. ARMBANDS REMOVED. PATIENT TAKEN VIA GURNEY BY .
== END 2019-05-02 14:20 | disposition hospice, home (50) | DRG 280 ==
LOC: ED 13:30 → MU 19:40 → DU 19:40 → MU 04-06 12:38
PROVIDERS: Emergency Medicine; General Practice; Internal Medicine; ADMIT Family Medicine
DX: K70.40 Alcoholic hepatic failure without coma (principal); K70.30 Alcoholic cirrhosis of liver without ascites; E43 Unspecified severe protein-calorie malnutrition; G93.41 Metabolic encephalopathy; D61.818 Other pancytopenia; E87.0 Hyperosmolality and hypernatremia; E83.42 Hypomagnesemia; I69.354 Hemiplegia and hemiparesis following cerebral infarction affecting left non-dominant side; F10.20 Alcohol dependence, uncomplicated; Z93.1 Gastrostomy status; Y90.0 Blood alcohol level of less than 20 mg/100 ml; Z68.1 Body mass index [BMI] 19.9 or less, adult
CPT/HCPCS: 83880; 92526-GN; 92610; G0378; J2060; J2270; J2405; J7030; Q0092